=== PATIENT | female | born 1965 | race Caucasian/White ===

== ENCOUNTER 2023-10-06 07:46 | Day surgery (SDC) | payer OTHER, SELFPAY ==
--- NOTE | 2023-10-06 08:01 | FL_ITS ---
The [address] [address] Patient Name: CARLOTA BOWIE MRN: [id number] date: 1965 Sex: F Assigned Patient Location: [place] Current Patient Location: [place] Accession/Order Number: [id number] Exam Date: 10/06/2023 08:30 Report Date: 10/06/2023 10:15 At the request of: CHANTELL BRIDGES Procedure: FL hip inj LT EXAMINATION: FL hip inj LT, FL guided needle placement HISTORY: Left Hip Osteoarthritis COMPARISON: No relevant comparison available. TECHNIQUE: A joint injection was performed in the usual sterile manner after obtaining informed consent. Standard level fluoroscopic mode of operation utilized. FINDINGS: JOINT: Left hip. NEEDLE: 22 gauge, 3.5 spinal needle. MEDICATION: 5cc buffered 1% lidocaine for subcutaneous anesthesia 2cc Omnipaque-300 iodinated contrast to visualize the joint space Mixture of Kenalog 40 mg, 0.5% Bupivacaine 2 mL and Omnipaque 300 10mL was injected into the joint space. TECHNIQUE: Anterior approach with prior localization of the femoral artery. 2 sticks were required to gain access to the joint space CLINICAL: 4 out of 10 pain before the injection. One out of 10 pain following the injection COMPLICATIONS: None. OTHER: Negative. FL/FL hip inj LT IMPRESSION: Technically successful left hip therapeutic arthrogram Electronically authenticated by: CAROLYN HERNANDEZ Date: 10/06/2023 10:15
--- NOTE | 2023-10-06 08:01 | FL_ITS ---
[address] [address] Patient Name: CARLOTA BOWIE MRN: [id number] date: 1965 Sex: F Assigned Patient Location: [place] Current Patient Location: [place] Accession/Order Number: [id number] Exam Date: 10/06/2023 08:30 Report Date: 10/06/2023 10:15 At the request of: CHANTELL BRIDGES Procedure: FL guided needle placement EXAMINATION: FL hip inj LT, FL guided needle placement HISTORY: Left Hip Osteoarthritis COMPARISON: No relevant comparison available. TECHNIQUE: A joint injection was performed in the usual sterile manner after obtaining informed consent. Standard level fluoroscopic mode of operation utilized. FINDINGS: JOINT: Left hip. NEEDLE: 22 gauge, 3.5 spinal needle. MEDICATION: 5cc buffered 1% lidocaine for subcutaneous anesthesia 2cc Omnipaque-300 iodinated contrast to visualize the joint space Mixture of Kenalog 40 mg, 0.5% Bupivacaine 2 mL and Omnipaque 300 10mL was injected into the joint space. TECHNIQUE: Anterior approach with prior localization of the femoral artery. 2 sticks were required to gain access to the joint space CLINICAL: 4 out of 10 pain before the injection. One out of 10 pain following the injection COMPLICATIONS: None. OTHER: Negative. FL/FL guided needle placement IMPRESSION: Technically successful left hip therapeutic arthrogram Electronically authenticated by: CAROLYN HERNANDEZ Date: 10/06/2023 10:15
[2023-10-06] MEDS: TRIAMCINOLONE ACETONIDE 40 MG/ML VIAL INJ (09:10)
[2023-10-06] MEDS: BUPIVACAINE HCL 0.5% PF 50 MG/10 ML VIAL 2 ML INJ (09:10)
[2023-10-06] MEDS: LIDOCAINE HCL 10 ML, SODIUM BICARBONATE 1 MEQ INJ (09:10)
--- NOTE | 2023-10-06 09:37 | SUR.PREOP ---
09/28/23 Pt instructed on procedure, date, time, and prep.
== END 2023-10-06 09:25 | disposition home or self-care (01) ==
LOC: FL 07:47
PROVIDERS: Radiology Diagnostic Radiology; Visit Provider Nurse Practitioner Family
DX: M16.12 Unilateral primary osteoarthritis, left hip (principal); M81.0 Age-related osteoporosis without current pathological fracture; M85.80 Other specified disorders of bone density and structure, unspecified site; Z15.81 Genetic susceptibility to multiple endocrine neoplasia [MEN]
CPT/HCPCS: 20610; 77002; 77080; J0665; J3301; Q9967

== ENCOUNTER 2023-10-06 07:49 | Outpatient (OUT) | payer OTHER, SELFPAY ==
--- NOTE | 2023-10-06 07:58 | XR_ITS ---
[address] [address] Patient Name: CARLOTA BOWIE MRN: [id number] date: 1965 Sex: F Assigned Patient Location: [facility] Current Patient Location: [facility] Accession/Order Number: [id number] Exam Date: 10/06/2023 08:05 Report Date: 10/06/2023 11:05 At the request of: TY NEWSOME Procedure: XR DEXA axial skeleton EXAMINATION: XR DEXA axial skeleton, 10/06/2023 8:05 AM EDT HISTORY: Osteoporosis COMPARISON: None. TECHNIQUE: Dual-energy X-ray absorptiometry (DEXA) bone density study performed for the axial skeleton. HISTORY: Osteoporosis FINDINGS: Bone mineral density AP spine L1-L4 measures 1.309 g/sq cm. T score 1.1. WHO classification: Normal. Lowest bone mineral density is in the left femoral neck measuring 0.874 g/sq cm. T score -1.2. WHO classification: Osteopenia XR/XR DEXA axial skeleton IMPRESSION: Osteopenia. Moderate fracture risk Electronically authenticated by: CAROLYN HERNANDEZ Date: 10/06/2023 11:05
== END 2023-10-06 07:50 | disposition home or self-care (01) ==
PROVIDERS: Visit Provider Internal Medicine Rheumatology
DX: M81.0 Age-related osteoporosis without current pathological fracture (principal); Z51.81 Encounter for therapeutic drug level monitoring; M85.80 Other specified disorders of bone density and structure, unspecified site
CPT/HCPCS: 77080

== ENCOUNTER 2024-04-06 08:44 | Day surgery (SDC) | payer OTHER, SELFPAY ==
--- OUTSIDE RECORDS SUMMARY | 2024-04-06 08:50 | XMS_ITS | CCD ---
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 Refill 07/15/2023 FOR RECORDS PERTAINING TO PATIENTS WHO ARE OR HAVE BEEN ENROLLED IN A CHEMICAL DEPENDENCY/SUBSTANCEABUSE PROGRAM, SOME INFORMATION MAY BE OMITTED. This clinical summary was aggregated from multiple sources. Caution should be exercised in using it in the provision of clinical care. This summary normalizes information from multiple sources, and as a consequence, information in this document may materially change the coding, format and clinical context of patient data. In addition, data may be omitted in some cases. CLINICAL DECISIONS SHOULD BE BASED ON THE PRIMARY CLINICAL RECORDS. [employer] provides no warranty or guarantee of the accuracy or completeness of information in this document.
--- NOTE | 2024-04-06 08:54 | FL_ITS ---
[address] [address] Patient Name: CARLOTA BOWIE MRN: [id number] date: 1965 Sex: F Assigned Patient Location: [place] Current Patient Location: Accession/Order Number: [id number] Exam Date: 04/06/2024 09:00 Report Date: 04/06/2024 10:51 At the request of: CHANTELL BRIDGES Procedure: FL guided needle placement EXAMINATION: FL hip inj LT, FL guided needle placement HISTORY: Primary Osteoarthritis Of Left Hip COMPARISON: No relevant comparison available. FLUORO DOSE: 29.86 and 1.77 mGy TECHNIQUE: A joint injection was performed in the usual sterile manner after obtaining informed consent. Standard level fluoroscopic mode of operation utilized. FINDINGS: JOINT: Left hip. NEEDLE: 22 gauge, 3.5 spinal needle. MEDICATION: 6cc buffered 1% lidocaine for subcutaneous anesthesia 3 mL Omnipaque 240. 40 mg Kenalog. 2 mm 0.5% bupivacaine was injected into the joint space. TECHNIQUE: Anterior approach with prior localization of the femoral artery. A single stick was successful in gaining access to the joint space. CLINICAL: 4 out of 10 pain before the injection. 0 out of 10 pain following the injection COMPLICATIONS: None. OTHER: Negative. FL/FL guided needle placement IMPRESSION: Technically successful left hip therapeutic arthrogram Electronically authenticated by: CAROLYN HERNANDEZ Date: 04/06/2024 10:51
--- NOTE | 2024-04-06 08:54 | FL_ITS ---
[address] [address] Patient Name: CARLOTA BOWIE MRN: [id number] date: 1965 Sex: F Assigned Patient Location: [place] Current Patient Location: Accession/Order Number: [id number] Exam Date: 04/06/2024 09:00 Report Date: 04/06/2024 10:51 At the request of: CHANTELL BRIDGES Procedure: FL hip inj LT EXAMINATION: FL hip inj LT, FL guided needle placement HISTORY: Primary Osteoarthritis Of Left Hip COMPARISON: No relevant comparison available. FLUORO DOSE: 29.86 and 1.77 mGy TECHNIQUE: A joint injection was performed in the usual sterile manner after obtaining informed consent. Standard level fluoroscopic mode of operation utilized. FINDINGS: JOINT: Left hip. NEEDLE: 22 gauge, 3.5 spinal needle. MEDICATION: 6cc buffered 1% lidocaine for subcutaneous anesthesia 3 mL Omnipaque 240. 40 mg Kenalog. 2 mm 0.5% bupivacaine was injected into the joint space. TECHNIQUE: Anterior approach with prior localization of the femoral artery. A single stick was successful in gaining access to the joint space. CLINICAL: 4 out of 10 pain before the injection. 0 out of 10 pain following the injection COMPLICATIONS: None. OTHER: Negative. FL/FL hip inj LT IMPRESSION: Technically successful left hip therapeutic arthrogram Electronically authenticated by: CAROLYN HERNANDEZ Date: 04/06/2024 10:51
[2024-04-06] MEDS: TRIAMCINOLONE ACETONIDE 40 MG/ML VIAL INJ (09:30)
[2024-04-06] MEDS: LIDOCAINE HCL 10 ML, SODIUM BICARBONATE 1 MEQ INJ (09:30)
[2024-04-06] MEDS: BUPIVACAINE HCL 0.5% PF 50 MG/10 ML VIAL 2 ML INJ (09:30)
--- NOTE | 2024-04-06 10:15 | SUR.PREOP ---
04/03/24 Instructed pt on procedure, date, time, and prep.
== END 2024-04-06 09:50 | disposition home or self-care (01) ==
LOC: FL 08:44
PROVIDERS: Radiology Diagnostic Radiology; PCP Family Medicine; Visit Provider Nurse Practitioner Family
DX: M16.12 Unilateral primary osteoarthritis, left hip (principal)
CPT/HCPCS: 20610; 77002; J0665; J3301; Q9966

== ENCOUNTER 2025-01-24 23:00 | Emergency (ER) | payer OTHER, SELFPAY ==
--- OUTSIDE RECORDS SUMMARY | 2025-01-24 23:11 | XMS_ITS | CCD ---
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 [address] Creatinine [Mass/Vol] 0.86 mg/dL Normal 0.40-1.00 [facility] Comment on above: Result Comment: METH OD TRACEABLE TO IDMS STANDARD Performed By: #### Vamshi BARRERA, GRAYSON1C #### [facility] ([id number]) [address] [place] [address] GFR/1.73 sq M.predicted among non-blacks MDRD (S/P/Bld) [Vol rate/Area] 78 mL/min/{1.73_m2} Normal >=60 [facility] Comment on above: Result Comment: eGFR not reported due to non-numeric value for Creatinine. Reported eGFR is based on the CKD-EPI 2020 equation that does not use a race coefficient. Performed By: #### Vamshi BARRERA, LOBO #### [facility] ([id number]) [address], [address] [place] [address] Glucose [Mass/Vol] 93 mg/dL Normal 65-99 [facility] Comment on above: Performed By: #### Vamshi BARRERA, GRAYSON1C #### [facility] ([id number]) [address] [address] [address] [place] [address] Potassium [Moles/Vol] 3.7 mmol/L Normal 3.5-5.0 [facility] Comment on above: Performed By: #### Vamshi BARRERA, HA1C #### [facility] ([id number]) [address] [address] [place] [address] Sodium [Moles/Vol] 136 mmol/L Normal 134-146 [facility] Comment on above: Performed By: #### Vamshi BARRERA, HA1C #### [facility] ([id number]) [address] [address] [place] [address] Urea nitrogen [Mass/Vol] 14 mg/dL Normal 5-23 [facility] Comment on above: Performed By: #### Vamsih BARRERA, HA1C #### [facility] ([id number]) [address] [address] [place] [address] BEDSIDE GLUCOSEon 01-06-2025 Glucose [Mass/Vol] 94 mg/dL Normal 65-99 [facility] Comment on above: Performed By: #### B EDG #### [facility] ([address] [address] VIR CBC WITH AUTO DIFFERENTIALon 01-06-2025 BASOPHILS ABSOLUTE COUNT (10*3/UL) BY AUTOMATED COUNT 0.1 10*3/uL Normal 0.0-0.2 [facility] Comment on above: Performed By: #### C BCA #### [facility] ([address] [address] VIR BASOPHILS RELATIVE PERCENT BY AUTOMATED COUNT 1.1 % Normal [facility] Comment on above: Performed By: #### C BCA #### [facility] ([address] [address] VIR CELLAVISION DIFFERENTIAL TYPE AUTOMATED DIFFERENTIAL Normal [facility] Comment on above: Performed By: #### C BCA #### [facility] ([address] [address] VIR Eosinophils (Bld) [#/Vol] 0.4 10*3/uL Normal 0.0-0.4 [facility] Comment on above: Performed By: #### C BCA #### [facility] ([address] [address] VIR EOSINOPHILS RELATIVE PERCENT BY AUTOMATED COUNT 5.8 % Normal [facility] Comment on above: Performed By: #### C BCA #### [address] [address] VIR Erythrocyte distribution width (RBC) [Ratio] 14.3 % Normal 11.5-15 [facility] Comment on above: Performed By: #### C BCA #### [facility] ([address] [address] VIR Hematocrit (Bld) [Volume fraction] 36.2 % Normal 35-47 [facility] Comment on above: Performed By: #### C BCA #### [facility] ([address] [address] VIR Hemoglobin (Bld) [Mass/Vol] 12.0 g/dL Normal 11.7-15.5 [facility] Comment on above: Performed By: #### C BCA #### [facility] ([address] [address] VIR LYMPHOCYTES ABSOLUTE COUNT (10*3/UL) BY AUTOMATED COUNT 1.7 10*3/uL Normal 1.0-3.5 [facility] Comment on above: Performed By: #### C BCA #### [facility] ([address] [address] VIR LYMPHOCYTES RELATIVE PERCENT BY AUTOMATED COUNT 26.6 % Normal [facility] Comment on above: Performed By: #### C BCA #### [facility] ([address] [address] VIR MCH (RBC) [Entitic mass] 28.8 pg Normal 27-34 [facility] Comment on above: Performed By: #### C BCA #### [facility] ([address] [address] VIR MCHC (RBC) [Mass/Vol] 33.2 g/dL Normal 32-36 [facility] Comment on above: Performed By: #### C BCA #### [facility] ([address] [address] VIR MCV (RBC) [Entitic vol] 87 fL Normal 80-100 [facility] Comment on above: Performed By: #### C BCA #### [facility] ([address] [address] VIR MONOCYTES ABSOLUTE COUNT (10*3/UL) BY AUTOMATED COUNT 0.7 10*3/uL Normal 0.0-0.9 [facility] Comment on above: Performed By: #### C BCA #### [facility] ([address] [place] [address] VIR MONOCYTES RELATIVE PERCENT BY AUTOMATED COUNT 11.0 % Normal [facility] Comment on above: Performed By: #### C BCA #### [facility] ([address] [address] VIR NEUTROPHILS ABSOLUTE COUNT BY AUTOMATED COUNT 3.5 10*3/uL Normal 1.5-6.6 [facility] Comment on above: Performed By: #### C BCA #### [facility] ([address] [address] VIR NEUTROPHILS RELATIVE PERCENT BY AUTOMATED COUNT 55.5 % Normal [facility] Comment on above: Performed By: #### C BCA #### [facility] ([address] [place] [address] VIR Platelet mean volume (Bld) [Entitic vol] 8.5 fL Normal 7-12 [facility] Comment on above: Performed By: #### C BCA #### [facility] ([address] [place] [address] VIR Platelets (Bld) [#/Vol] 206 10*3/uL Normal 150-450 [facility] Comment on above: Performed By: #### C BCA #### [facility] ([address] [address] VIR RBC COUNT 4.18 X10E12/L Normal 3.8-5.2 [facility] Comment on above: Performed By: #### C BCA #### [facility] ([address] [place] [address] VIR WBC (Bld) [#/Vol] 6.3 10*3/uL Normal 4-11 [facility] Comment on above: Performed By: #### C BCA #### [facility] ([facility]) [address] [place] [address] BRAIN WO CONT STROKE ALER Ton 01-06-2025 CT BRAIN WO CONT STROKE ALERT CT BRAIN WO CONT STROKE ALERT CLINICAL INFORMATION: Stroke, follow up; assessment of stroke/hemorrhage: TECHNIQUE: CT BRAIN WO CONT STROKE ALERT CT images of the brain were obtained and compared to prior exam of 10/15/2021. Nix-white differentiation appears intact without cortical infarct. No cisternal effacement. No acute intracranial hemorrhage identified. Sinuses are clear. No obvious calvarial abnormality. IMPRESSION: No acute findings. All CT scans at this facility use dose modulation, iterative reconstruction, and/or weight based dosing when appropriate to reduce radiation dose to as low as reasonably achievable. Finalized by Vazquez Mendes MD on 01/06/2025 3:04 AM Normal [facility] CT CTA CAROTIDon 01-06-[address] CTA CAROTID Examination: CTA carotids Clinical History: TIA. Procedure: Multidetector CT angiogram performed through the cervical portion of the carotid arteries after intravenous injection of contrast material without complication, including source images and maximum intensity projection 3-D images displayed and reviewed on a PACS workstation by the radiologist. Automatic exposure control (AEC) was utilized. All CT scans at this facility use dose modulation, iterative reconstruction, and/or weight based dosing when appropriate to reduce radiation dose to as low as reasonably achievable. Comparison: None Findings: Right carotid system: The left common carotid artery is patent. Carotid bifurcation is patent. There is 0% right internal carotid artery stenosis by NASCET criteria. The right external carotid artery is patent. Left carotid system: Left common carotid artery is patent. Left carotid bifurcation is patent. There is 0% left internal carotid artery stenosis by NASCET criteria. Left external carotid artery is patent. Bilaterally the vertebral arteries appear patent to the skull base. 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 Lung apices appear unremarkable. IMPRESSION: 1. Patent cervical carotid arteries. Finalized by Payam Crouch MD on 01/06/2025 3:45 AM Normal [facility] CT CTA HEADon 01-06-[address] CTA HEAD CT CTA HEAD 01/06/2025 3:32 AM INDICATION: Difficulty walking, unsteadiness, changes in vision, weakness in legs COMPARISON: None TECHNIQUE: CT images of the head were obtained following the administration intravenous contrast. 3-D images were also post processed at a separate workstation to further define anatomy and potential pathology. All CT scans at this facility use dose modulation, iterative reconstruction, and/or weight based dosing when appropriate to reduce radiation dose to as low as reasonably achievable. FINDINGS: ARTERIAL VASCULATURE: Vertebrobasilar: The distal vertebral and basilar arteries are patent. Posterior Cerebral: Patent without significant stenosis. Internal Carotids: The distal internal carotid arteries are unremarkable. Anterior Cerebral: Patent without significant stenosis. Middle Cerebral: Patent without significant stenosis. Other: No aneurysm or malformation. VENOUS VASCULATURE: Visualized major dural venous sinuses are patent. BRAIN: No mass effect or midline shift. No hydrocephalus. IMPRESSION: * Unremarkable CTA of the head. Approved by Resident Anmol Sosa MD on 01/06/2025 3:42 AM IPayam MD have personally reviewed the image(s) and agree with and/or edited the report Finalized by Payam Crouch MD on 01/06/2025 3:50 AM Normal [facility] PROTIME AND INRon 01-06-2025 INR 0.9 Normal 0.9-1.2 [facility] Comment on above: Performed By: #### P INR #### [facility] ([address] [place] [address] VIR PT Coag (PPP) [Time] 10.3 s Normal 9.8-13.2 [facility] Comment on above: Performed By: #### P INR #### [facility] ([address] [address] VIR TROP I, HIGH SENSITIVITY 1 H OURon 01-06-2025 TROPONIN I, HIGH SENSITIVITY 2 ng/L Normal <16 [facility] Comment on above: Performed By: #### C BC, HA1C #### [facility] ([id number]) [address] [place] [address] TROPONIN I, HIGH SENSITIVITY 0 HOURon 01-06-2025 TROPONIN I, HIGH SENSITIVITY <^2 Normal <16 [facility] Comment on above: Performed By: #### C BC, HA1C #### [facility] ([id number]) [address] [place] [address] Urine Cultureon 12-22-2024 Bacteria identified Cx Nom (U) ORGANISM: Escherichia coli (O:ESCCOL) [place] Count 25,000 Aerobic JANENE Charge (NMIC56) ----- SUSCEPTIBILITY ---- ORGANISM: O:ESCCOL ANTIBIOTIC INTERPRETATION JANENE Amikacin S <16 Amoxacillin/K Clavulanate S <8 Ampicillin S <8 Ampicillin/Sulbactam S <4 Aztreonam S <4 Cefazolin S <2 Cefepime S <2 Ceftazidime S <1 Ceftazidime/Avibacta m S <4 Ceftolozane/Tazobact am S <2 Ceftriaxone S <1 Cefuroxime S <4 Ciprofloxacin S <0.25 Ertapenem S <0.5 Gentamicin S <2 Levofloxacin S <0.5 Meropenem S <1 Meropenem/Vaborbacta m S <2 Nitrofurantoin S <32 Piperacillin/Tazobac webster S <8 Tetracycline S <4 Tigecycline S <2 Tobramycin S <2 Trimethoprim/Sulfame thoxazole S <0.5 S = SUSCEPTIBLE I = INTERMEDIATE R [...] RESISTANT TO ALL B-LACTAM DRUGS. PERFORMED BY: [address] [address] PATHOLOGIST DANDY OPERATOR JESSY MORE M.D. Normal [facility] Comment on above: Performed By: #### C UU #### [facility] [address] [id number] [facility] XR HIP LT 2-3 VIEWS W OR WO PELVISon 11-10-2024 XR HIP LT 2-3 VIEWS W OR WO PELVIS XR HIP LT 2-3 VIEWS W OR WO PELVIS HISTORY: A 59-year-old female with a history of the total left hip replacement one week ago. Postsurgical examination. TECHNIQUE: AP view of pelvis with left hip: 3 views COMPARISON: No relevant prior studies are available for comparison. FINDINGS: There is a total left hip replacement. Metallic prosthesis is in satisfactory position. No hardware complications are seen. Right hip joint is intact. Both sacroiliac joints are intact. Both is a pubic rami are intact. IMPRESSION: * Total left hip replacement with postsurgical change. No hardware complications are seen. Finalized by Alex Rawls MD on 11/10/2024 5:38 PM Normal [facility] CBC WITH AUTO DIFFERENTIALon 10-30-2024 BASOPHILS ABSOLUTE COUNT (10*3/UL) BY AUTOMATED COUNT 0.0 10*3/uL Normal 0.0-0.2 [facility] Comment on above: Performed By: #### C BCA #### [facility] ([facility]) [address] [place] [address] VIR BASOPHILS RELATIVE PERCENT BY AUTOMATED COUNT 0.5 % Normal [facility] Comment on above: Performed By: #### C BCA #### [facility] ([facility]) [address] [place] [address] VIR CELLAVISION DIFFERENTIAL TYPE AUTOMATED DIFFERENTIAL Normal [facility] Comment on above: Performed By: #### C BCA #### [facility] ([facility]) [address] [place] [address] VIR Eosinophils (Bld) [#/Vol] 0.3 10*3/uL Normal 0.0-0.4 [facility] Comment on above: Performed By: #### C BCA #### [facility] ([facility]) [address] [place] [address] VIR EOSINOPHILS RELATIVE PERCENT BY AUTOMATED COUNT 5.1 % Normal [facility] Comment on above: Performed By: #### C BCA #### [facility] ([facility]) [address] [place] [address] VIR Erythrocyte distribution width (RBC) [Ratio] 14.6 % Normal 11.5-15 [facility] Comment on above: Performed By: #### C BCA #### [facility] ([facility]) [address] [place] [address] VIR Hematocrit (Bld) [Volume fraction] 38.0 % Normal 35-47 [facility] Comment on above: Performed By: #### C BCA #### [facility] ([facility]) [address] [place] [address] VIR Hemoglobin (Bld) [Mass/Vol] 12.7 g/dL Normal 11.7-15.5 [facility] Comment on above: Performed By: #### C BCA #### [facility] ([facility]) [address] [place] [address] VIR LYMPHOCYTES ABSOLUTE COUNT (10*3/UL) BY AUTOMATED COUNT 1.7 10*3/uL Normal 1.0-3.5 [facility] Comment on above: Performed By: #### C BCA #### [facility] ([facility]) [address] [place] [address] VIR LYMPHOCYTES RELATIVE PERCENT BY AUTOMATED COUNT 26.5 % Normal [facility] Comment on above: Performed By: #### C BCA #### [facility] ([facility]) [address] [place] [address] VIR MCH (RBC) [Entitic mass] 29.6 pg Normal 27-34 [facility] Comment on above: Performed By: #### C BCA #### [facility] ([facility]) [address] [place] [address] VIR MCHC (RBC) [Mass/Vol] 33.3 g/dL Normal 32-36 [facility] Comment on above: Performed By: #### C BCA #### [facility] ([facility]) [address] [place] [address] VIR MCV (RBC) [Entitic vol] 89 fL Normal 80-100 [facility] Comment on above: Performed By: #### C BCA #### [facility] ([facility]) [address] [place] [address] VIR MONOCYTES ABSOLUTE COUNT (10*3/UL) BY AUTOMATED COUNT 0.8 10*3/uL Normal 0.0-0.9 [facility] Comment on above: Performed By: #### C BCA #### [facility] ([facility]) [address] [place] [address] VIR MONOCYTES RELATIVE PERCENT BY AUTOMATED COUNT 12.3 % Normal [facility] Comment on above: Performed By: #### C BCA #### [facility] ([facility]) [address] [place] [address] VIR NEUTROPHILS ABSOLUTE COUNT BY AUTOMATED COUNT 3.5 10*3/uL Normal 1.5-6.6 [facility] Comment on above: Performed By: #### C BCA #### [facility] ([facility]) [address] [place] [address] VIR NEUTROPHILS RELATIVE PERCENT BY AUTOMATED COUNT 55.6 % Normal [facility] Comment on above: Performed By: #### C BCA #### [facility] ([facility]) [address] [place] [address] VIR Platelet mean volume (Bld) [Entitic vol] 8.7 fL Normal 7-12 [facility] Comment on above: Performed By: #### C BCA #### [facility] ([facility]) [address] [place] [address] VIR Platelets (Bld) [#/Vol] 217 10*3/uL Normal 150-450 [facility] Comment on above: Performed By: #### C BCA #### [facility] ([facility]) [address] [place] [address] VIR RBC COUNT 4.28 X10E12/L Normal 3.8-5.2 [facility] Comment on above: Performed By: #### C BCA #### [facility] ([facility]) [address] [place] [address] VIR WBC (Bld) [#/Vol] 6.3 10*3/uL Normal 4-11 [facility] Comment on above: Performed By: #### C BCA #### [facility] ([facility]) [address] [place] [address] VIR COMPREHENSIVE METABOLIC PANE Elliott 10-30-2024 Albumin [Mass/Vol] 4.1 g/dL Normal 3.2-5.3 [facility] Comment on above: Performed By: #### C MP #### [facility] ([facility]) [address] [place] [address] VIR ALP [Catalytic activity/Vol] 63 U/L Normal 39-130 [facility] Comment on above: Performed By: #### C MP #### [facility] ([facility]) [address] [place] [address] VIR ALT [Catalytic activity/Vol] 12 U/L Normal <=31 [facility] Comment on above: Performed By: #### C MP #### [facility] ([facility]) [address] [place] [address] VIR Anion gap [Moles/Vol] 10 mmol/L Normal 5-15 [facility] Comment on above: Performed By: #### C MP #### [facility] ([facility]) [address] [place] [address] VIR AST [Catalytic activity/Vol] 18 U/L Normal <=41 [facility] Comment on above: Performed By: #### C MP #### [facility] ([facility]) [address] [place] [address] VIR Bilirubin [Mass/Vol] 0.4 mg/dL Normal 0.3-1.2 [facility] Comment on above: Performed By: #### C MP #### [facility] ([facility]) [address] [place] [address] VIR Calcium [Mass/Vol] 9.1 mg/dL Normal 8.5-10.5 [facility] Comment on above: Performed By: #### C MP #### [facility] ([facility]) [address] [facility] [address] [place] [address] VIR Chloride [Moles/Vol] 107 mmol/L Normal 98-109 [facility] Comment on above: Performed By: #### C MP #### [facility] ([facility]) [address] [place] [address] VIR CO2 [Moles/Vol] 24 mmol/L Normal 22-[address] [facility] Comment on above: Performed By: #### C MP #### [facility] ([facility]) [address] [place] [address] VIR Creatinine [Mass/Vol] 0.89 mg/dL Normal 0.40-1.00 [facility] Comment on above: Result Comment: METH OD TRACEABLE TO IDMS STANDARD Performed By: #### C MP #### [facility] ([facility]) [address] [place] [address] VIR GFR/1.73 sq M.predicted among non-blacks MDRD (S/P/Bld) [Vol rate/Area] 75 mL/min/{1.73_m2} Normal >=60 [facility] Comment on above: Result Comment: Repo rted eGFR is based on the CKD-EPI 2020 equation that does not use a race coefficient. Performed By: #### C MP #### [facility] ([facility]) [address] [place] [address] VIR Glucose [Mass/Vol] 83 mg/dL Normal 65-99 [facility] Comment on above: Performed By: #### C MP #### [facility] ([facility]) [address] [place] [address] VIR Potassium [Moles/Vol] 3.8 mmol/L Normal 3.5-5.0 [facility] Comment on above: Performed By: #### C MP #### [facility] ([facility]) [address] [place] [address] VIR Protein [Mass/Vol] 6.7 g/dL Normal 6.0-8.0 [facility] Comment on above: Performed By: #### C MP #### [facility] ([facility]) [address] [place] [address] VIR Sodium [Moles/Vol] 141 mmol/L Normal 134-146 [facility] Comment on above: Performed By: #### C MP #### [facility] ([facility]) [address] [place] [address] VIR Urea nitrogen [Mass/Vol] 13 mg/dL Normal 5-23 [facility] Comment on above: Performed By: #### C MP #### [facility] ([facility]) [address] [place] [address] VIR LIPID PROFILEon 10-30-2024 Cholesterol [Mass/Vol] 232 mg/dL High 150-200 [facility] Comment on above: Performed By: #### L IPR #### [facility] ([facility]) [address] [place] [address] VIR Cholesterol in HDL [Mass/Vol] 68 mg/dL Normal >39 [facility] Comment on above: Result Comment: HDL <40 mg/dL - High Risk HDL > or = 40mg/dL- Desirable HDL >60 mg/dL - Negative Risk Performed By: #### L IPR #### [facility] ([facility]) [address] [place] [address] VIR Cholesterol in LDL [Mass/Vol] 145 mg/dL High <130 [facility] Comment on above: Result Comment: LDL <100 mg/dL - Desirable LDL >160 mg/dL - High Risk Performed By: #### L IPR #### [facility] ([facility]) [address] [place] [address] VIR CHOLESTEROL:HDL 3.4 Normal 1.0-5.[address] [facility] Comment on above: Performed By: #### L IPR #### [facility] ([facility]) [address] [place] [address] VIR Triglyceride [Mass/Vol] 93 mg/dL Normal 27-150 [facility] Comment on above: Performed By: #### L IPR #### [facility] ([facility]) [address] [place] [address] VIR VERY LOW LIPOPROTEIN 19 mg/dL Normal 0-30 [facility] Comment on above: Performed By: #### L IPR #### [facility] ([facility]) [address] [place] [address] VIR THYROID PROFILE INCLUDES TSH FT4on 10-30-2024 Free T4 [Mass/Vol] 0.84 ng/dL Normal 0.61-1.60 [facility] Comment on above: Performed By: #### T HYR #### [facility] ([facility]) [address] [place] [address] VIR TSH 4.46 uIU/mL Normal 0.49-4.67 [facility] Comment on above: Performed By: #### T HYR #### [facility] ([facility]) [address] [place] [address] VIR VITAMIN D 25 HYDROXYon 10-30 VITAMIN D 25 HYD TOT 27.3 ng/mL Low 30.0-100.0 [facility] Comment on above: Order Comment: Vitam in D status 25 [place] Vitamin D Deficiency <20 ng/mL Insufficiency 20-29 ng/mL Sufficiency 30-100 ng/mL Toxicity >100 ng/mL NOTE: A pediatric reference range has not been established by the regional sales executive of this kit. The [place] [employer] recommends a Vitamin D level of = or >20ng/mL in infants and children. Performed By: #### V ITD #### [facility] (TT) [address] [place] [address] VIR POCT urinalysis dipstick onl yon 10-19-2024 External Poct Urine Bilirubin Negative [facility] External Poct Urine Blood Negative [facility] External Poct Urine Glucose Negative [facility] External Poct Urine Ketones Negative [facility] External Poct Urine Leukocyte Esterase Negative [facility] External Poct Urine Nitrite Negative [facility] External Poct Urine Ph 5 [facility] External Poct Urine Protein Negative [facility] External Poct Urine Specific Niotaze 1.015 [facility] External Poct Urine Urobilinogen 0.2 [facility] Interpretation and review of laboratory results Normal [facility] COMPLETE BLOOD COUNTon 08-29 Erythrocyte distribution width (RBC) [Ratio] 14.1 % Normal 11.5-15.0 [facility] Comment on above: Performed By: #### C GRAYSON BARRERA1C #### [facility] ([id number]) [address] [place] [address] Hematocrit (Bld) [Volume fraction] 35.4 % Normal 35-47 [facility] Comment on above: Performed By: #### Vamshi BARRERA, GRAYSON1C #### [facility] ([id number]) [address] [place] [address] Hemoglobin (Bld) [Mass/Vol] 12.1 g/dL Normal 11.7-15.5 [facility] Comment on above: Performed By: #### Vamshi BARRERA, HA1C #### [facility] ([id number]) [address] [place] [address] MCH (RBC) [Entitic mass] 30.5 pg Normal 27-34 [facility] Comment on above: Performed By: #### Vamshi BARRERA, HA1C #### [facility] ([id number]) [address] [place] [address] MCHC (RBC) [Mass/Vol] 34.1 g/dL Normal 32-36 [facility] Comment on above: Performed By: #### Vamshi BARRERA, HA1C #### [facility] ([id number]) [address] [place] [address] MCV (RBC) [Entitic vol] 89 fL Normal 80-100 [facility] Comment on above: Performed By: #### Vamshi BARRERA, HA1C #### [facility] ([id number]) [address] [place] [address] Platelet mean volume (Bld) [Entitic vol] 8.6 fL Normal 7-12 [facility] Comment on above: Performed By: #### Vamshi BARRERA, HA1C #### [facility] ([id number]) [address] [place] [address] Platelets (Bld) [#/Vol] 212 10*3/uL Normal 150-450 [facility] Comment on above: Performed By: #### Vamshi BARRERA, HA1C #### [facility] ([id number]) [address] [place] [address] RBC COUNT 3.97 X10E12/L Normal 3.80-5.20 [facility] Comment on above: Performed By: #### Vamshi BARRERA, HA1C #### [facility] ([id number]) [address] [place] [address] WBC (Bld) [#/Vol] 5.3 10*3/uL Normal 4.0-11.0 [facility] Comment on above: Performed By: #### C BRUCE, GRAYSON1C #### [facility] ([id number]) [address] [place] [address] HGB A1C (GLYCO-HGB)on 2024 Glucose [Mass/Vol] 108 mg/dL Normal [facility] Comment on above: Performed By: #### C BRUCE, LOBO #### [facility] ([id number]) [address] [place] [address] HbA1c (Bld) [Mass fraction] 5.4 % Normal 4.4-5.6 [facility] Comment on above: Result Comment: NOTE ADA Guidelines Result HgbA1c Normal : less than 5.7 % Prediabetes : 5.7 % to 6.4 % Diabetes : > 6.4 % Use with caution in patients with abnormal hemoglobin variants as the half-life of red blood cells and in vivo glycation rates are affected. Performed By: #### Vmashi BARRERA, LOBO #### [facility] ([id number]) [address] [address] XR HIP LT 2-3 VIEWS W OR WO PELVISon 07-05-2024 XR HIP LT 2-3 VIEWS W OR WO PELVIS XR HIP LT 2-3 VIEWS W OR WO PELVIS CLINICAL INFORMATION: Pain of left hip TECHNIQUE: XR HIP LT 2-3 VIEWS W OR WO PELVIS 3 views left hip were obtained. Moderate to severe left hip osteoarthritic changes noted with superior joint space loss and near [id number] appearance. Femoral neck appears intact. No acute fracture. Small osteophytes. IMPRESSION: Moderate to severe left hip osteoarthritis. Finalized by Vazquez Mendes MD on 07/05/2024 1:05 PM Normal [facility] Urinalysis - AUTOMATEDon Appearance (U) yellow/cloudy [employer] Other Bilirubin Ql (U) Negative [employer] Other Color (U) [employer] Other Glucose Ql (U) Negative [employer] Other Hemoglobin Ql (U) Positive [employer] Other Ketones Ql (U) Negative [employer] Other Leukocyte esterase Test strip Ql (U) mod [employer] Other Nitrite Ql (U) Negative [employer] Other pH (U) Negative [employer] Other Protein Ql (U) Negative [employer] Other Specific gravity (U) [Rel density] 1.025 [employer] Other Urobilinogen (U) [Mass/Vol] 0.2 mg/dL [employer] Other Urinalysis - AUTOMATED [employer] Other MRI HIP LT WO W CONon 2020 [...] NASREEN BELLE Date: 2021-03-10 13:40 Normal [facility] COVID-19 PCRon 04-25-2020 SARS-CoV-2 (COVID-19) RNA MONTEZ+probe Ql (Unsp spec) Not detected Normal Not Detected [facility] Comment on above: Result Comment: This nucleic acid amplification test was developed and its performance characteristics determined by [employer]. Nucleic acid amplification tests include PCR and [...] assay. Performed By: #### C VDPCR #### [facility] [address] [place] [address] Michael Andres Vital Signs Date Time Vital Sign Value Performing Clinician Facility 01-24-2025 10:24-040 Body mass index (BMI) [Ratio] 21.43 kg/m2 South Avila MD Work Phone: [facility] 01-24-2025 10:24-040 Body weight 54.88 kg South Avila MD Work Phone: [facility] 01-24-2025 10:24-0400 Diastolic blood pressure 80 mm[Hg] South Avila MD Work Phone: [facility] 01-24-2025 10:24-0400 Heart rate 87 /min South Avila MD Work Phone: [facility] 01-24-2025 10:24-0400 Respiratory rate 18 /min South Avila MD Work Phone: [facility] 01-24-2025 10:24-0400 SaO2% (BldA) [Mass fraction] 97 % South Avila MD Work Phone: [facility] 01-24-2025 10:24-0400 Systolic blood pressure 120 mm[Hg] South Avila MD Work Phone: [facility] 12-31-2024 15:02-0400 Body mass index (BMI) [Ratio] 21.26 kg/m2 Kimberly Song [facility] Work Phone: [facility] 12-31-2024 15:02-0400 Body weight 54.43 kg Kimberly Floro [facility] Work Phone: [facility] 12-24-2024 10:15-0400 Body height 160 cm Augie Schultz APRN-ROUGHER OPERATOR Work Phone: [facility] 12-24-2024 10:15-0400 Body mass index (BMI) [Ratio] 22.14 kg/m2 Augie Schultz COMBUSTION ANALYST-ROUGHER OPERATOR Work Phone: [facility] 12-24-2024 10:15-0400 Body weight 56.7 kg Augie Schultz APRN-ROUGHER OPERATOR Work Phone: [facility] 12-22-2024 14:20-0400 Body height 160.02 cm [facility] 12-22-2024 14:20-0400 Body mass index (BMI) [Ratio] 21.4 kg/m2 [facility] 12-22-2024 14:20-0400 Body temperature 98.3 [degF] [facility] 12-22-2024 14:20-0400 Body weight 54.99 kg [facility] 12-22-2024 14:20-0400 Diastolic blood pressure 85 mm[Hg] [facility] 12-22-2024 14:20-0400 Heart rate 61 /min [facility] 12-22-2024 14:20-0400 Respiratory rate 18 /min [facility] 12-22-2024 14:20-0400 SaO2% (BldA) [Mass fraction] 99 % [facility] 12-22-2024 14:20-0400 Systolic blood pressure 146 mm[Hg] [facility] 11-14-2024 08:17-0400 Body height 160 cm Augie Schultz COMBUSTION ANALYST-ROUGHER OPERATOR Work Phone: [facility] 11-14-2024 08:17-0400 Body mass index (BMI) [Ratio] 22.14 kg/m2 Augie Schultz COMBUSTION ANALYST-ROUGHER OPERATOR Work Phone: [facility] 11-14-2024 08:17-0400 Body weight 56.7 kg Augie Schultz COMBUSTION ANALYST-ROUGHER OPERATOR Work Phone: [facility] 11-07-2024 12:53-0400 Body height 160 cm Augie Schultz COMBUSTION ANALYST-ROUGHER OPERATOR Work Phone: [facility] 11-07-2024 12:53-0400 Body mass index (BMI) [Ratio] 21.43 kg/m2 Augie Schultz COMBUSTION ANALYST-ROUGHER OPERATOR Work Phone: [facility] 11-07-2024 12:53-0400 Body weight 54.88 kg Augie Schultz COMBUSTION ANALYST-ROUGHER OPERATOR Work Phone: [facility] 10-19-2024 08:02-0400 Body mass index (BMI) [Ratio] 21.26 kg/m2 Faustino Amin COMBUSTION ANALYST-ROUGHER OPERATOR Work Phone: [facility] 10-19-2024 08:02-0400 Body weight 54.43 kg Faustino Amin APRN-LEON Work Phone: [facility] 10-19-2024 08:02-0400 Diastolic blood pressure 70 mm[Hg] Faustino Amin COMBUSTION ANALYST-ROUGHER OPERATOR Work Phone: [facility] 10-19-2024 08:02-0400 Heart rate 88 /min Faustino Amin COMBUSTION ANALYST-ROUGHER OPERATOR Work Phone: [facility] 10-19-2024 08:02-0400 Respiratory rate 16 /min Faustino Amin COMBUSTION ANALYST-ROUGHER OPERATOR Work Phone: [facility] 10-19-2024 08:02-0400 SaO2% (BldA) [Mass fraction] 97 % Faustino Amin APRN-ROUGHER OPERATOR Work Phone: [facility] 10-19-2024 08:02-0400 Systolic blood pressure 120 mm[Hg] Faustino Amin APRN-ROUGHER OPERATOR Work Phone: [facility] 10-17-2024 12:52-0400 Body height 160 cm [facility] [address] [place] [address] 10-17-2024 12:52-0400 Body mass index (BMI) [Ratio] 21.36 kg/m2 [facility] [address] [place] [address] 10-17-2024 12:52-0400 Body temperature 98.01 [degF] [facility] [address] [place] [address] 10-17-2024 12:52-0400 Body weight 54.[address] [facility] [address] [place] [address] 10-17-2024 12:52-0400 Diastolic blood pressure 82 mm[Hg] [facility] [address] [place] [address] 10-17-2024 12:52-0400 Heart rate 77 /min [facility] [address] [place] [address] 10-17-2024 12:52-0400 Respiratory rate 16 /min [facility] [address] [place] [address] 10-17-2024 12:52-0400 SaO2% (BldA) [Mass fraction] 99 % [facility] [address] [place] [address] 10-17-2024 12:52-0400 Systolic blood pressure 133 mm[Hg] [facility] 10-01-2024 14:56-0400 Body mass index (BMI) [Ratio] 22.13 kg/m2 South Avila MD Work Phone: [facility] 10-01-2024 14:56-0400 Body temperature 98.6 [degF] South Avila MD Work Phone: [facility] 10-01-2024 14:56-0400 Body weight 54.88 kg South Avila MD Work Phone: [facility] 10-01-2024 14:56-0400 Diastolic blood pressure 82 mm[Hg] South Avila MD Work Phone: [facility] 10-01-2024 14:56-0400 Heart rate 79 /min South Avila MD Work Phone: [facility] 10-01-2024 14:56-0400 Respiratory rate 18 /min South Avila MD Work Phone: [facility] 10-01-2024 14:56-0400 SaO2% (BldA) [Mass fraction] 98 % South Avila MD Work Phone: [facility] 10-01-2024 14:56-0400 Systolic blood pressure 130 mm[Hg] South Avila MD Work Phone: [facility] 07-17-2024 08:11-0500 Body mass index (BMI) [Ratio] 19.75 kg/m2 Faustino Amin APRN-ROUGHER OPERATOR Work Phone: [facility] 07-17-2024 08:11-0500 Body weight 48.99 kg Faustino Amin APRN-ROUGHER OPERATOR Work Phone: [facility] 07-17-2024 08:11-0500 Diastolic blood pressure 72 mm[Hg] Faustino Schlachter COMBUSTION ANALYST-ROUGHER OPERATOR Work Phone: [facility] 07-17-2024 08:11-0500 Heart rate 86 /min Faustino Amin APRN-ROUGHER OPERATOR Work Phone: [facility] 07-17-2024 08:11-0500 Respiratory rate 16 /min Faustino Amin COMBUSTION ANALYST-ROUGHER OPERATOR Work Phone: [facility] 07-17-2024 08:11-0500 SaO2% (BldA) [Mass fraction] 97 % Faustino Amin APRN-ROUGHER OPERATOR Work Phone: [facility] 07-17-2024 08:11-0500 Systolic blood pressure 118 mm[Hg] Faustino Amin APRN-ROUGHER OPERATOR Work Phone: [facility] 07-05-2024 08:49-0500 Body height 157.5 cm Shahram Rivas MD Work Phone: [facility] 07-05-2024 08:49-0500 Body mass index (BMI) [Ratio] 20.49 kg/m2 Shahram Rivas MD Work Phone: [facility] 07-05-2024 08:49-0500 Body weight 50.8 kg Shahram Rivas MD Work Phone: [facility] 01-24-2024 08:05-0400 Body height 160 cm Carolyn Jackson MD Work Phone: [facility] 01-24-2024 08:05-0400 Body mass index (BMI) [Ratio] 20.02 kg/m2 Carolyn Jackson MD Work Phone: [facility] 01-24-2024 08:05-0400 Body weight 51.26 kg Carolyn Jackson MD Work Phone: [facility] 01-24-2024 08:05-0400 Diastolic blood pressure 86 mm[Hg] Carolyn Jackson MD Work Phone: [facility] 01-24-2024 08:05-0400 Heart rate 74 /min Carolyn Jackson MD Work Phone: [facility] 01-24-2024 08:05-0400 SaO2% (BldA) [Mass fraction] 98 % Carolyn Jackson MD Work Phone: [facility] 01-24-2024 08:05-0400 Systolic blood pressure 124 mm[Hg] Carolyn Jackson MD [facility] 11-07-2021 13:30-0400 Body height 158.75 cm Deja Reedault Other [employer] Other 11-07-2021 13:30-0400 Body mass index (BMI) [Ratio] 20.34 kg/m2 Deja Reedault Other [employer] Other 11-07-2021 13:30-0400 Body weight 51.26 kg Deja Reedault Other [employer] Other 11-07-2021 13:30-0400 Diastolic blood pressure 78 mm[Hg] Deja Reedault Other [employer] Other 11-07-2021 13:30-0400 SaO2% (BldA) [Mass fraction] 100 % Deja Reedault Other [employer] Other 11-07-2021 13:30-0400 Systolic blood pressure 120 mm[Hg] Deja Reedault Other [employer] Other Encounters Encounter Date Encounter Type Care Provider Facility Start: 01-24-2025 End: 01-24-2025 Office outpatient visit 25 minutes South Avila MD Work Phone: [facility] Comment on above: Cystitis (Primary Dx ); Rosacea Start: 01-21-2025 End: 01-21-2025 [facility] Start: 01-21-2025 End: 01-21-2025 Postop follow up visit related to original px [facility] COMBUSTION ANALYST-ROUGHER OPERATOR Work Phone: [facility] Comment on above: Aftercare following left hip joint replacement surgery (Primary Dx) Start: 01-11-2025 End: 01-11-2025 ambulatory [facility] Start: 01-07-2025 End: 01-09-2025 Telephone encounter Do Douglass [facility] Neurology, A Department of [facility] Start: 01-07-2025 [facility] Start: 01-06-2025 End: 01-06-2025 Emergency department patient visit [facility] Start: 01-01-2025 End: 01-01-2025 Verito Jackson MD Work Phone: [facility] Start: 12-31-2024 End: 12-31-2024 Periodic preventive med est patient 40-64yrs Kimberly Amadoro CNM Work Phone: [facility] Comment on above: Asymptomatic [place] (Primary Dx); IUD check up; Breast cancer screening by mammogram; Unprotected sexual intercourse Start: 12-31-2024 End: 12-31-2024 ambulatory KIMBERLY L FLORO Not Available Start: 12-31-2024 End: 12-31-2024 Bamboo flowsheet Kimberly L Floro CNM Work Phone: [facility] Start: 12-31-2024 End: 12-31-2024 Bamboo flowsheet Kimberly L Floro CNM Work Phone: [facility] OB[facility] Start: 12-27-2024 [facility] Start: 12-24-2024 End: 12-24-2024 Postop follow up visit related to original px Augie Schultz COMBUSTION ANALYST-ROUGHER OPERATOR [facility] Comment on above: Aftercare following left hip joint replacement surgery (Primary Dx) Start: 12-24-2024 End: 12-24-2024 ambulatory [facility] JOSEArturo [facility] Start: 12-22-2024 End: 12-22-2024 Departed Referred Nika Gilbert COMBUSTION ANALYST -[facility] Work Phone: Start: 12-22-2024 End: 12-22-2024 ambulatory NON STAFF [facility] Work Phone: Start: 12-22-2024 End: 12-22-2024 Patient encounter procedure Nika Gilbert COMBUSTION ANALYST -[facility] Work Phone: Start: 11-28-2024 End: 11-28-2024 Postop follow up visit related to original px Augie Schultz COMBUSTION ANALYST-ROUGHER OPERATOR Work Phone: [facility] Comment on above: Aftercare following left hip joint replacement surgery (Primary Dx) Start: 11-28-2024 End: 11-28-2024 Orders Only Faustino Amin COMBUSTION ANALYST-ROUGHER OPERATOR Work Phone: [facility] Start: 11-27-2024 End: 11-27-2024 Verito Rivas MD Work Phone: [facility] Start: 11-14-2024 End: 11-14-2024 Postop follow up visit related to original px Augie Schultz COMBUSTION ANALYST-ROUGHER OPERATOR [facility] Phone: [facility] Comment on above: Aftercare following left hip joint replacement surgery (Primary Dx) Start: 11-14-2024 End: 11-14-2024 ambulatory [facility] Start: 11-07-2024 End: 11-07-2024 Telephone encounter Loida Marks [facility] Start: 11-07-2024 End: 11-07-2024 Postop follow up visit related to original px Augie Qureshiarturo COMBUSTION ANALYST-ROUGHER OPERATOR Work Phone: [facility] Comment on above: Aftercare following left hip joint replacement surgery (Primary Dx) Start: 11-07-2024 End: 11-11-2024 [facility] Start: 10-31-2024 End: 10-31-2024 Refill Shahram Rivas MD Work Phone: [facility] Comment on above: Vitamin D deficiency (Primary Dx) Start: 10-31-2024 End: 10-31-2024 Evaluation and management of inpatient [facility] Start: 10-30-2024 ambulatory CAROLYN Jackson [facility] Start: 10-30-2024 Encounter for genera l adult medical examination without abnormal findings [facility] Start: 10-24-2024 End: 10-24-2024 Telephone encounter Landy Orosco CMA [facility] Start: 10-19-2024 End: 10-19-2024 Office outpatient visit 25 minutes [facility] COMBUSTION ANALYST-ROUGHER OPERATOR Work Phone: [facility] Comment on above: Pre-operative cleara nce (Primary Dx); Acquired hypothyroidism; Fibromyalgia; Primary osteoarthritis of left hip; Tension headache; Gastroesophageal reflux disease without esophagitis; Hypothyroidism, unspecified type Start: 10-19-2024 End: 10-19-2024 Preoperative state [facility] COMBUSTION ANALYST-ROUGHER OPERATOR Work Phone: [facility] Start: 10-19-2024 End: 10-19-2024 ambulatory [facility] Start: 10-19-2024 Encounter for other preprocedural examination [facility] Start: 10-17-2024 End: 10-17-2024 Patient encounter procedure [facility] 10 [facility] Comment on above: Preop testing (Prima ry Dx) Start: 10-17-2024 End: 10-17-2024 Patient encounter status [facility] Work Phone: Start: 10-17-2024 End: 10-17-2024 ambulatory [facility] Start: 10-17-2024 Encounter for other preprocedural examination [facility] Start: 10-09-2024 End: 10-09-2024 Telephone encounter Sarah Vasquez CMA [facility] Start: 10-01-2024 End: 10-01-2024 Office outpatient visit 15 minutes [facility] Comment on above: Acute sinusitis, rec urrence not specified, unspecified location (Primary Dx); Acquired hypothyroidism; Fibromyalgia Start: 10-01-2024 End: 10-01-[address] [facility] Start: 09-23-2024 End: 09-24-2024 Refill Carolyn Jackson MD Work Phone: [facility] Start: 08-29-2024 End: 08-29-2024 ambulatory [facility] Start: 08-06-2024 End: 08-06-2024 Refill Carolyn Jackson MD Work Phone: [facility] Start: 08-01-2024 End: 08-01-2024 Documentation procedure [facility]il[facility] Castillo RN [facility] Start: 07-28-2024 End: 07-30-2024 Refill Carolyn Jackson MD Work Phone: [facility] Family Medicine Start: 07-17-2024 End: 07-17-2024 Office outpatient visit 15 minutes Faustino HAMPTON Work Phone: [facility] Comment on above: Fibromyalgia (Primar y Dx); Gastroesophageal reflux disease without esophagitis; Hypothyroidism, unspecified type; Tension headache; H/O blood loss; Bleeds easily ([facility]) Start: 07-17-2024 End: 07-17-2024 ambulatory [facility] Start: 07-05-2024 End: 07-05-2024 Office outpatient new 45 minutes Shahram Rivas MD Work Phone: [facility] Comment on above: Primary osteoarthrit is of left hip (Primary Dx) Start: 07-05-2024 End: 07-05-2024 Orders Only Pia Mosley [facility] Comment on above: Primary osteoarthrit is of left hip (Primary Dx); intermediate manager use of drug Start: 03-26-2024 End: 03-26-2024 Telephone encounter Sidney Vo NP Work Phone: [facility] Start: 03-10-2024 End: 03-12-2024 Refill Carolyn Jackson MD Work Phone: [facility] Family [facility] Start: 02-10-2024 End: 02-10-2024 [facility]STION ANALYST-ROUGHER OPERATOR Work Phone: [facility] Family [facility] Start: 01-29-2024 End: 01-30-2024 Refill Carolyn Jackson MD Work Phone: [facility] Family [facility] Start: 01-24-2024 End: 01-24-2024 Patient encounter status Carolyn Jackson MD Work Phone: [facility] Work Phone: Start: 01-24-2024 End: 01-24-2024 Periodic preventive med est patient 40-64yrs Carolyn Jackson MD Work Phone: [facility] Family Medicine Comment on above: Routine general medi ivelisse examination at a health care facility (Primary Dx); Screen for colon cancer; Encounter for screening mammogram for malignant neoplasm of breast Start: 01-24-2024 End: 01-24-2024 ambulatory CAROLYN JACKSON [facility] Start: 01-24-2024 Encounter for genera l adult medical examination without abnormal findings CAROLYN JACKSON [facility] Start: 01-12-2024 End: 01-12-2024 Orders Only Carolyn Jackson MD Work Phone: [facility] Family [facility] Start: 12-23-2023 End: 12-23-2023 Refill Carolyn Jackson MD Work Phone: [facility] Medicine Start: 08-16-2023 Refill Carolyn carroll MD Work Phone: [facility] Medicine Start: 07-15-2023 Refill Nicolette Young [facility] Start: 06-26-2023 Refill Carolyn carroll MD Work Phone: [facility] Start: 11-07-2021 End: 11-07-2021 ambulatory Deja Hodges Other [employer] Other Start: 11-07-2021 Office outpatient ne w 20 minutes Deja Hodges [facility] Start: 11-07-2021 End: 11-07-2021 Departed Referred EVISCERATOR-C Deja Hodges Work Phone: [facility] Start: 03-10-2021 End: 03-11-[address] DOCTOR LANDERS Facility:[facility]1 Start: 04-22-2020 End: 04-23-[address] CAROLYN JACKSON Facility:[facility] Procedures Date Procedure Procedure Detail Performing Clinician Start: 01-24-2025 Urnls dip stick/tabl et rgnt non-auto w/o micrscp South Avila MD Work Phone: Start: 01-24-2025 Adult depression scr eening assessment South Avila MD Work Phone: Start: 10-19-2024 Urnls dip stick/tabl et rgnt non-auto w/o micrscp Faustino Amin COMBUSTION ANALYST-ROUGHER OPERATOR Work Phone: Start: 10-19-2024 Adult depression scr eening assessment Faustino Alconchita COMBUSTION ANALYST-ROUGHER OPERATOR Work Phone: Start: 10-01-2024 Adult depression scr eening assessment South Avila MD Work Phone: Start: 07-17-2024 Adult depression scr eening assessment Faustino Amin COMBUSTION ANALYST-ROUGHER OPERATOR Work Phone: Start: 01-24-2024 Adult depression scr eening assessment Carolyn Jackson MD Work Phone: Start: 04-13-2023 Mammography Carolyn solorio MD Work Phone: Start: 01-20-2023 Adult depression scr eening assessment Carolyn Jackson MD Work Phone: Plan of Treatment Date Care Activity Detail Author Start: 04-11-2027 Screening for malignant neoplasm of colon [facility] Start: 01-24-2026 Adult BMI Screening Adult BMI Screening [facility] Start: 01-24-2026 Depression Screening Depression Screening [facility] Start: 01-24-2026 Tobacco Screening Tobacco Screening [facility] Start: 01-21-2026 Tobacco Screening Tobacco Screening [facility] Start: 01-06-2026 Adult BMI Screening Adult BMI Screening [facility] Start: 12-24-2025 Adult BMI Screening Adult BMI Screening [facility] Start: 12-24-2025 Tobacco Screening Tobacco Screening [facility] Start: 11-28-2025 Tobacco Screening Tobacco Screening [facility] Start: 11-14-2025 Adult BMI Screening Adult BMI Screening [facility] Start: 11-14-2025 Tobacco Screening Tobacco Screening [facility] Start: 11-07-2025 Adult BMI Screening Adult BMI Screening [facility] Start: 11-07-2025 Tobacco Screening Tobacco Screening [facility] Start: 10-31-2025 Adult BMI Screening Adult BMI Screening [facility] Start: 10-31-2025 Tobacco Screening Tobacco Screening [facility] Start: 10-21-2025 End: 10-21-2025 Patient encounter procedure 10/21/2025 9:40 AM EDT Office Visit [facility] [address] [place] [address] Augie Schultz, COMBUSTION ANALYST-ROUGHER OPERATOR [address] [place] [address] Jose Mccann [facility] Start: 10-19-2025 Adult BMI Screening Adult BMI Screening [facility] Start: 10-19-2025 Depression Screening Depression Screening [facility] Start: 10-19-2025 Tobacco Screening Tobacco Screening [facility] Start: 10-17-2025 Adult BMI Screening Adult BMI Screening [facility] Start: 10-17-2025 Tobacco Screening Tobacco Screening [facility] Start: 10-01-2025 Adult BMI Screening Adult BMI Screening [facility] Start: 10-01-2025 Depression Screening Depression Screening [facility] Start: 10-01-2025 Tobacco Screening Tobacco Screening [facility] Start: 07-17-2025 Adult BMI Screening Adult BMI Screening [facility] Start: 07-17-2025 Depression Screening Depression Screening [facility] Start: 07-17-2025 Tobacco Screening Tobacco Screening [facility] Start: 07-05-2025 Adult BMI Screening Adult BMI Screening [facility] Start: 07-05-2025 Tobacco Screening Tobacco Screening [facility] Start: 03-14-2025 End: 03-14-2025 Patient encounter procedure 03/14/2025 8:00 AM EDT Office Visit [facility] [address] [place] [phone] Faustino Amin, COMBUSTION ANALYST-ROUGHER OPERATOR [address] [place] [address] [facility] Start: 02-07-2025 End: 02-07-2025 Patient encounter procedure 02/07/2025 7:30 AM EDT Appointment [facility] - Ultrasound [address] [place] [address] [facility] Start: 02-04-2025 Influenza vaccination [facility] Start: 01-28-2025 End: 01-28-2025 Patient encounter procedure 01/28/2025 8:00 AM EDT Office Visit [facility] [address] [place] [address] Faustino Amin, COMBUSTION ANALYST-ROUGHER OPERATOR [address] [place] [address] [facility] Start: 01-24-2025 End: 01-24-2026 US Retroperitoneum Ultrasound retroperitoneal complete Imaging Routine Cystitis Expected: 01/24/2025, Expires: 01/24/2026 [facility] Work Phone: Comment on above: Expected: 01/24/2025, Expires: Start: 01-23-2025 Adult BMI Screening Adult BMI Screening [facility] Start: 01-23-2025 Depression Screening Depression Screening [facility] Start: 01-23-2025 Tobacco Screening Tobacco Screening [facility] Start: 01-21-2025 End: 01-21-2025 Patient encounter procedure 01/21/2025 9:40 AM EDT [facility] [address] [place] [phone] Augie Schultz, COMBUSTION ANALYST-ROUGHER OPERATOR [address] [place] [address] [facility] Start: 01-11-2025 End: 01-11-2025 Patient encounter procedure 01/11/2025 7:30 AM EDT Appointment [facility] - Cardiovascular [address] [place] [address] [facility] Start: 01-03-2025 End: 01-03-2025 Patient encounter procedure 01/03/2025 4:00 PM EDT Appointment [facility] [address] [place] [address] Aftercare following left hip joint replacement surgery [facility] Comment on above: Aftercare following left hip joint repla cement surgery Start: 12-31-2024 End: 12-31-2024 Patient encounter procedure 12/31/2024 3:00 PM EDT Office Visit JUSTIN LOUISE [address] [facility] [place] [phone] Kimberly Song CNM [address] [facility] [place] [address] Arrived JUSTIN LOUISE Comment on above: Arrived Start: 12-31-2024 End: 03-03-2026 DBT Breast - bilateral screening Bilateral screening mammogram with tomosynthesis Imaging Routine Breast cancer screening by mammogram Expected: 12/31/2024, Expires: 03/03/2026 [facility] Work Phone: Comment on above: Expected: 12/31/2024, Expires: Start: 12-24-2024 End: 12-24-2024 Patient encounter procedure 12/24/2024 10:20 AM EDT Office Visit [facility] [address] [place] [address] Augie Schultz, COMBUSTION ANALYST-ROUGHER OPERATOR [address] [place] [address] [facility] Start: 12-23-2024 Urine culture [facility] Start: 12-22-2024 Bacteria identified in Urine by Culture Urine Culture [facility] Start: 11-28-2024 End: 11-28-2024 Patient encounter procedure 11/28/2024 8:40 AM EDT Office Visit [facility] [address] [place] [address] Augie Schultz, COMBUSTION ANALYST-ROUGHER OPERATOR [address] [place] [address] [facility] Start: 11-27-2024 End: 11-27-2024 Patient encounter procedure 11/27/2024 1:00 PM EDT Appointment [facility] [address] [place] [address] [facility] Start: 11-14-2024 End: 11-14-2024 Patient encounter procedure 11/14/2024 8:20 AM EDT Office Visit [facility] [address] [place] [address] Augie Schultz, COMBUSTION ANALYST-ROUGHER OPERATOR [address] [place] [address] [facility] Start: 11-07-2024 End: 11-07-2025 XR Pelvis and Hip - left 2 Views [facility] Work Phone: Comment on above: Expected: 11/07/2024, Expires: Start: 11-07-2024 End: 11-07-2024 Patient encounter procedure 11/07/2024 1:00 PM EDT Office Visit [facility] [address] [place], [place] [phone] Augie Schultz, COMBUSTION ANALYST-ROUGHER OPERATOR [address] [place] [address] [facility] Start: 10-31-2024 End: 10-31-2024 Admission to same day surgery center 10/31/2024 8:30 AM EDT - 10/31/2024 10:15 AM EDT Surgery [facility] Spine [facility] - Surgery [address] [place], [place] [phone] Shahram Rivas MD [address] [place], [place] REPLACEMENT TOTAL JOINT HIP ANTERIOR SUPINE INTERMUSCULAR [64375 (CPT )] [facility] Comment on above: REPLACEMENT TOTAL JOINT HIP ANTERIOR SUP INE INTERMUSCULAR [43593 (CPT )] Start: 10-31-2024 End: 10-31-2024 Arthrp acetblr/prox fem prostc agrft/algrft REPLACEMENT TOTAL JOINT HIP ANTERIOR SUPINE INTERMUSCULAR Primary osteoarthritis of left hip 10/31/2024 8:30 AM EDT [facility] Start: 10-31-2024 Subsequent hospital visit by physician 10/31/2024 8:30 AM EDT Hospital Encounter [facility] [address] [place] [address] Shahram Rivas MD [address] [place] [address] [facility] Start: 10-19-2024 End: 10-19-2024 Patient encounter procedure 10/19/2024 8:00 AM EDT Office Visit [facility] [address] [place] [address] Faustino Amin APRN-ROUGHER OPERATOR [address] [place] [address] [facility] Start: 10-17-2024 End: 10-17-2024 Patient encounter procedure 10/17/2024 12:45 PM EDT Procedure visit [facility] [address] [address] [facility] Start: 07-26-2024 End: 07-26-2024 Patient encounter procedure 07/26/2024 8:00 AM EST Office Visit [facility] [address] [place] [address] Faustino Amin, COMBUSTION ANALYST-ROUGHER OPERATOR [address] [place] [address] [facility] Start: 07-17-2024 End: 07-17-2024 Patient encounter procedure 07/17/2024 8:00 AM EST [facility] [address] [place] [phone] Faustino Amin, COMBUSTION ANALYST-ROUGHER OPERATOR [address] [place] [address] [facility] Start: 04-13-2024 Screening for malignant neoplasm of breast Mammogram [facility] Start: 02-05-2024 COVID-19 Vaccine ( season) COVID-19 Vaccine ( season) [facility] Start: 02-05-2024 COVID-19 Vaccine () COVID-19 Vaccine () [facility] Start: 02-05-2024 Influenza vaccination [facility] Start: 01-29-2024 Screening for malignant neoplasm of colon Colon Cancer Screening 3 Year Cologuard [facility] Start: 01-24-2024 End: 01-23-2025 CBC W Auto Differential panel - Blood CBC auto differential Lab Routine Routine general medical examination at a [facility] care [facility] Expected: 01/24/2024, Expires: 01/23/2025 [facility] Work Phone: Comment on above: Expected: 01/24/2024, Expires: Start: 01-24-2024 End: 01-23-2025 Comprehensive metabolic 2000 panel - Serum or Plasma Comprehensive metabolic panel Lab Routine Routine general medical examination at a health care facility Expected: 01/24/2024, Expires: 01/23/2025 [facility] Comment on above: Expected: 01/24/2024, Expires: Start: 01-24-2024 End: 01-23-2025 Lipid 1996 panel - Serum or Plasma Lipid profile Lab Routine Routine general medical examination at a health care facility Expected: 01/24/2024, Expires: 01/23/2025 [facility] Comment on above: Expected: 01/24/2024, Expires: Start: 01-24-2024 End: 01-23-2025 Thyroid profile includes TSH FT4 Thyroid profile includes TSH FT4 Lab Routine Routine general medical examination at a health care facility Expected: 01/24/2024, Expires: 01/23/2025 [facility] Comment on above: Expected: 01/24/2024, Expires: Start: 01-24-2024 End: 01-23-2025 Vitamin D 25 hydroxy Vitamin D 25 hydroxy Lab Routine Routine general medical examination at a health care facility Expected: 01/24/2024, Expires: 01/23/2025 [facility] Comment on above: Expected: 01/24/2024, Expires: Start: 01-24-2024 End: 01-24-2024 Patient encounter procedure 01/24/2024 8:00 AM EDT Office Visit [facility] [address] [place] [phone] Carolyn Jackson MD [address] [place] [address] [facility] Start: 01-22-2024 Screening for malignant neoplasm of colon [facility] Start: 01-21-2024 Adult BMI Screening Adult BMI Screening [facility] Start: 01-21-2024 Depression Screening Depression Screening [facility] Start: 01-21-2024 Tobacco Screening Tobacco Screening [facility] Start: 02-04-2023 COVID-19 Vaccine ( season) COVID-19 Vaccine () [facility] Start: 02-04-2023 Influenza vaccination Influenza Vaccine [facility] Start: 11-07-2021 Bacteria identified in Urine by Culture Urine Culture [facility] Start: 2016 Administration of varicella zoster vaccine Zoster (Shingles) Vaccine (1 of 2) [facility] Start: 1996 Screening for malignant neoplasm of cervix [facility] Start: 10-23-1987 Screening for malignant neoplasm of cervix Pap Smear [facility] Start: 1985 DTaP,Tdap and Td Vaccines (1 - Tdap) DTaP,Tdap and Td Vaccines (1 - Tdap) [facility] Start: 1966 Screening for malignant neoplasm of colon [facility] Bacteria identified in Urine by Culture [facility] Work Phone: Bacteria identified in Urine by Culture Urine culture (clean catch) Microbiology Routine Cystitis 01/24/2025 11:04 AM EDT [facility] End: 07-05-2025 CBC panel - Blood by Automated count CBC without diff Lab Routine Primary osteoarthritis of left hip shelter use of drug 1 Occurrences starting 07/05/2024 until 07/05/2025 [email or web address]: Comment on above: 1 Occurrences starting 07/05/2024 until 07/05/2025 [facility] Lab Routine Screen for colon cancer Ordered: 01/24/2024 [facility] [employer] [facility] Comment on above: Ordered: 01/24/2024 End: 01-23-2025 DBT Breast - bilateral screening Mammography screening bilateral with CAD Imaging Routine Encounter for screening mammogram for malignant neoplasm of breast 1 Occurrences starting 01/24/2024 until 01/23/2025 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 1 Occurrences starting 07/05/2024 until 07/05/2025 [facility] [employer] Comment on above: 1 Occurrences starting 07/05/2024 until 07/05/2025 Urine culture [facility] Immunizations Immunization Date Immunization Notes Care Provider Juan J smith 10-11-2013 rabies vaccine, for intramuscular injection Carolyn Jackson MD Work Phone: [facility] [employer] 09-27-2013 rabies vaccine, for intramuscular injection Carolyn Jackson MD Work Phone: [facility] 09-20-2013 rabies vaccine, for intramuscular injection Carolyn Jackson MD Work Phone: [facility] 09-13-2013 rabies vaccine, for intramuscular injection Carolyn Jackson MD Work Phone: [facility] Payers Date Payer Category Payer Self-pay [id number] 2022 Auto Insurance [employer] [id number] 2022 Managed Care Other (unspecified) [employer] [id number] 2022 Private Health Insurance [id number] [id number] 2022 Unknown [id number] 1966 Unknown [id number] 2.16.840.1.295700.3.579. 2.593 1966 Unknown [id number] 2.16.840.1.554912.3.579. 2.593 1966 Unknown [id number] 2.16.840.1.017133.3.579. 2.1285 1966 Unknown [id number] 2.16.840.1.933595.3.579. 2.1285 1966 Unknown [id number] 2.16.840.1.086781.3.579. 2.1285 1966 Unknown [id number] 2.16.840.1.902558.3.579. 2.1285 1966 Unknown [id number] 2.16.840.1.958605.3.579. 2.9 1966 Unknown [id number] 2.16.840.1.911128.3.579. 2.1285 1966 Unknown [id number] 2.16.840.1.860440.3.579. 2.1285 1966 Unknown [id number] 2.16.840.1.815491.3.579. 2.1285 1966 Unknown [id number] 2.16.840.1.811427.3.579. 2.1285 1966 Unknown [id number] 2.16.840.1.183909.3.579. 2.1285 1966 Unknown [id number] 2.16.840.1.297899.3.579. 2.1285 1966 Unknown [id number] 2.16.840.1.100865.3.579. 2.1285 1966 Unknown [id number] 2.16.840.1.514158.3.579. 2.1285 1966 Unknown [id number] 2.16.840.1.550219.3.579. 2.1285 1966 Unknown [id number] 2.16.840.1.143417.3.579. 2.[facility] Unknown [id number] 2.16.840.1.887571.3.579. 2.[facility] 1966 Unknown [id number] 2.16.840.1.683028.3.579. 2.[facility]1966 Unknown [id number] 2.16.840.1.590997.3.579. 2.1285 1966 Unknown [id number] 2.16.840.1.599724.3.579. 2.[facility]1966 Unknown [id number] 2.16.840.1.843169.3.579. 2.[facility]1966 Unknown [id number] 2..840.1.762722.3.579. 2.[facility]1966 Unknown [id number] 2.16.840.1.365890.3.579. 2.[facility] 1959 Unknown [id number] Unknown [id number] 2.16.840.1.436213.3.579. 2.531 Social History Date Type Detail Facility [facility] [employer] Other Start: 1965 Sex Assigned At [facility] Start: 06-19-2020 End: 09-15-2023 [facility] Start: 09-15-2023 End: 12-22-2024 Tobacco smoking status NHIS Never smoked tobacco [facility] Start: 09-15-2023 End: 12-24-2024 Tobacco use and exposure Smokeless tobacco non-user [facility] [employer] [facility] Start: 09-15-2023 End: 12-31-2024 Alcoholic beverage intake Lifetime non-drinker (finding) [facility] Start: 06-19-2020 End: 09-15-2023 History of Social function [facility] [employer] [facility] Start: 1965 Sex assigned at Not on file [facility] Start: 09-14-2023 Gender identity Identifies as female gender (finding) [facility] Start: 09-14-2023 Sexual orientation Heterosexual (finding) [facility] Start: 06-25-2022 End: 12-24-2024 Tobacco smoking status NHIS Ex-smoker [facility] Start: 06-06-1984 History of tobacco use Current smoker [facility] Start: 07-05-2024 End: 01-24-2025 Alcoholic beverage intake Current non-drinker of alcohol (finding) [facility] Adolescent depressio n screening assessment 0 [facility] Start: 01-09-2015 Sex Female (finding) [facility] Start: 10-17-2024 Tobacco Comment Smoked as teen [facility] tem Start: 06-06-1984 History of tobacco use Cigarette Smoker [facility] Medical Equipment Procedure Code Equipment Code Equipment Origin al Text Equipment Identifier Dates Shell Actb 50mm Hip Lmt Hl Clr Cd Pps G7 D Hmsphr - [id number] ()[id number] , [id number] FDA Start: 10-31-2024 Liner Actb 36mm D Vivacit-E Lum G7 Hip Strl Lf - [id number] ()[id number] , [id number] FDA Start: 10-31-2024 Head Fem 36mm G7 Blx D Biolox Opt Hip Rpl 650-1057 - [id number] ()[id number], [id number] FDA Start: 10-31-2024 Stem Fem 130mm 5 mm 133d Hi Os Tpr Tprlk Pps Ti Hip Prft Full - [id number] ()[id number] [id number] , [id number] FDA Start: 10-31-2024 Sleeve Hip -6mm Os Tpr G7 Blx D Opt Ti Centering Ty 1 Rpl 650-1064 - [id number] ()[id number] [id number], [id number] FDA Start: 10-31-2024 [address]. [address] Hip Trlg Strl Rpl [id number] - [id number] , [id number] FDA Start: 10-31-2024 Goals Date Patient Goal Desired Activity /State Personal health goal Personal health goal Comment on above: Formatting of this n ote might be different from the original. Evaluation of progress towards goal: Maximize work with PT at discharge to strengthen Left hip Clinical Notes 11-07-2021 to 01-24-2025 [place] MD - 01/24/2025 10:30 AM [place] Schultz APRN-LEON - 01/21/2025 9:40 AM EDTTelephone Encounter - Do Douglass - 01/07/2025 1:24 PM EDT Note Date & Type Note Facility 01-24-2025 History of Presen t illness Narrative [id number] [facility] [id number] Patient: Barbara Garcia Date of : 1965 Encounter Date: 01/24/2025 History of Present Illness: The patient is a 59 y.o. female, an established patient, and is here for Chief Complaint Patient presents with Flank Pain Abdominal Pain urine urgency . Patient is having suprapubic pain back pain and urinary urgency and frequency for the last 1 week. Denies any blood in urine. No fever. No nausea or vomiting Patient has been getting 1 UTI episode per year in the last 2 3 years Flank Pain Associated symptoms include abdominal pain. Pertinent negatives include no chest pain, dysuria or fever. Abdominal Pain Pertinent negatives include no arthralgias, dysuria, fever, hematuria or vomiting. Past Medical, Family, and Social History Update: The following portions of the patient's history were reviewed and updated as appropriate: allergies, current medications, past family history, past medical history, past social history, past surgical history and problem list. Past Medical History: Diagnosis Date Basal cell carcinoma 2005 & 2006 Dental disease 10/17/2024 2 permanent crowns Fibromyalgia GERD (gastroesophageal reflux disease) past history, no meds Hypothyroidism Liver hemangioma Migraine about 1-2 per month Primary osteoarthritis of left hip 10/17/2024 Seasonal allergies Shingles Sinus infection 10/17/2024 on antibiotics Wears glasses 10/17/2024 Past Surgical History: Procedure Laterality Date CARPAL TUNNEL RELEASE Left 2002 HYSTERECTOMY 2005 ONE OVARY REMOVED JOINT REPLACEMENT OOPHORECTOMY Right 2004 LEFT IS NON-WORKING REPLACEMENT TOTAL JOINT HIP ANTERIOR SUPINE INTERMUSCULAR Left 10/31/2024 Performed by Shahram Rivas MD at [facility] BIOPSY THORACIC OUTLET SURGERY [address] [facility] Current Outpatient Medications Medication Sig Dispense Refill buPROPion SR (WELLBUTRIN SR) 150 mg 12 hr tablet TAKE 1 TABLET(150 MG) BY MOUTH EVERY MORNING AND EVERY NIGHT AT BEDTIME 180 tablet 2 ctbrlcvven-lqupkbalbjhbm-fzkr (FIORICET, ESGIC) 50-325-40 mg per tablet TAKE 1 TABLET BY MOUTH EVERY 6 HOURS NEEDED FOR HEADACHE 30 tablet 5 carisoprodol (SOMA) 350 mg tablet as needed for muscle spasms. 2 ergocalciferol (DRISDOL) 1,250 mcg (50,000 unit) capsule Take 1 capsule (50,000 Units total) by mouth once a week. 12 capsule 1 estradioL (VIVELLE-DOT) 0.05 mg/[address] 1 patch on the skin 2 (two) times a week. 30 patch 0 gabapentin (NEURONTIN) 100 mg capsule Take 1 capsule (100 mg total) by mouth daily with breakfast. 200 mg HS 5 levothyroxine (SYNTHROID, LEVOTHROID) 50 MCG tablet TAKE 1 TABLET(50 MCG) BY MOUTH IN THE MORNING 90 tablet 1 loratadine (CLARITIN) 10 mg tablet TAKE 2 TABLETS(20 MG) BY MOUTH DAILY 180 tablet 1 SUMAtriptan (IMITREX) 100 mg tablet TAKE 1 TABLET BY MOUTH AT ONSET OF SYMPTOMS MAY REPEAT IN 2 HOURS IF UNRESOLVED. DO NOT EXCEED 200 MG IN 24 HOURS 27 tablet 1 doxycycline (VIBRAMYCIN) 100 mg capsule Take 1 capsule (100 mg total) by mouth in the morning and 1 capsule (100 mg total) before bedtime. Do all this for 7 days. 14 capsule 0 metroNIDAZOLE (METROLOTION) 0.75 % lotion Apply 1 Application topically in the morning and 1 Application before bedtime. 59 mL 1 phenazopyridine (PYRIDIUM) 200 mg tablet Take 1 tablet (200 mg total) by mouth 3 (three) times a day as needed for bladder spasms. 10 tablet 1 No current facility-administered medications for this visit. (All medications reviewed and updated by provider since last office visit or hospitalization) Allergies: Bandage [adhesive], Pravastatin, Hismanal, and Zithromax [azithromycin] Tobacco History: Social History Tobacco Use Smoking Status Former Current packs/day: 0.25 Average packs/day: 0.3 packs/day for 47.3 years (12.2 ttl pk-yrs) Types: Cigarettes Start date: 06/06/1984 Smokeless Tobacco Never Tobacco Comments Smoked as teen (If patient a smoker, smoking cessation counseling offered) Social History: Social History Substance and Sexual Activity Alcohol Use No Review of Systems: Review of Systems Constitutional: Negative for chills and fever. HENT: Negative for ear pain and sore throat. Eyes: Negative for pain and visual disturbance. Respiratory: Negative for cough and shortness of breath. Cardiovascular: Negative for chest pain and palpitations. Gastrointestinal: Positive for abdominal pain. Negative for vomiting. Genitourinary: Positive for flank pain. Negative for dysuria and hematuria. Musculoskeletal: Negative for arthralgias and back pain. Skin: Negative for color change and rash. Neurological: Negative for seizures and syncope. All other systems reviewed and are negative. Physical Exam: BP 120/80 Pulse 87 Resp 18 Wt 54.9 kg (121 lb) SpO2 97% BMI 21.43 kg/m Physical Exam Constitutional: Appearance: She is well-developed. HENT: Head: Normocephalic and atraumatic. Nose: Nose normal. Mouth/Throat: Mouth: Mucous membranes are moist. Eyes: Pupils: Pupils are equal, round, and reactive to light. Cardiovascular: Rate and Rhythm: Normal rate and regular rhythm. Heart sounds: Normal heart sounds. No murmur heard. Pulmonary: Effort: Pulmonary effort is normal. No respiratory distress. Breath sounds: Normal breath sounds. No wheezing. Abdominal: General: Bowel sounds are normal. Palpations: Abdomen is soft. Tenderness: There is abdominal tenderness. There is right CVA tenderness. Musculoskeletal: General: Normal range of motion. Cervical back: Neck supple. Right lower leg: No edema. Left lower leg: No edema. Lymphadenopathy: Cervical: No cervical adenopathy. Skin: General: Skin is warm and dry. Findings: No rash. Neurological: Mental Status: She is alert and oriented to person, place, and time. Cranial Nerves: No cranial nerve deficit. Lab Results Component Value Date GLU 93 01/06/2025 CALCIUM 8.8 01/06/2025 SODIUM 136 01/06/2025 K 3.7 01/06/2025 CO2 25 01/06/2025 BUN 14 01/06/2025 CREATININE 0.86 01/06/2025 Lab Results Component Value Date WBC 6.3 01/06/2025 HGB 12.0 01/06/2025 HCT 36.2 01/06/2025 MCV 87 01/06/2025 PLT 206 01/06/2025 Lab Results Component Value Date HGBA1C 5.4 08/29/2024 Assessment and Plan: Barbara was seen today for flank pain, abdominal pain and urine urgency . Diagnoses and all orders for this visit: Cystitis - doxycycline (VIBRAMYCIN) 100 mg capsule; Take 1 capsule (100 mg total) by mouth in the morning and 1 capsule (100 mg total) before bedtime. Do all this for 7 days. - phenazopyridine (PYRIDIUM) 200 mg tablet; Take 1 tablet (200 mg total) by mouth 3 (three) times a day as needed for bladder spasms. - Ultrasound retroperitoneal complete; Future - Urine culture (clean catch) - POCT urinalysis dipstick only Rosacea - metroNIDAZOLE (METROLOTION) 0.75 % lotion; Apply 1 Application topically in the morning and 1 Application before bedtime. Patient advised to avoid the sun while using doxycycline. Follow-up: Return for Next scheduled follow up. 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 female here today for postop appointment concerning a left total hip replacement that was performed on 10/31/[address] Rivas. Patient reports that she is doing well and walking with no assistive devices. She does report that she is finishing up some physical therapy and we would like to return to work next Tuesday. She is afebrile and very happy with her replacement so far. Past Medical History: Past Medical History: Diagnosis Date Basal cell carcinoma 2004 & 2006 Dental disease 10/17/2024 2 permanent crowns Fibromyalgia GERD (gastroesophageal reflux disease) past history, no meds Hypothyroidism Liver hemangioma Migraine about 1-2 per month Primary osteoarthritis of left hip 10/17/2024 Seasonal allergies Shingles Sinus infection 10/17/2024 on antibiotics Wears glasses 10/17/2024 Past Surgical History: Procedure Laterality Date CARPAL TUNNEL RELEASE Left 2001 HYSTERECTOMY 2004 ONE OVARY REMOVED JOINT REPLACEMENT OOPHORECTOMY Right 2004 LEFT IS NON-WORKING REPLACEMENT TOTAL JOINT HIP ANTERIOR SUPINE INTERMUSCULAR Left 10/31/2024 Performed by Shahram Rivas MD at [facility] BIOP[facility] THORACIC OUTLET SURGERY [address] [facility] Medications: Current Outpatient Medications: aspirin 81 mg chewable tablet, Chew 1 tablet (81 mg total) and swallow in the morning., Disp: 30 tablet, Rfl: 1 buPROPion SR (WELLBUTRIN SR) 150 mg 12 hr tablet, TAKE 1 TABLET(150 MG) BY MOUTH EVERY MORNING AND EVERY NIGHT AT BEDTIME, Disp: 180 tablet, Rfl: 2 nvjwibdxvw-lewcvhgiqusja-dgzq (FIORICET, ESGIC) 50-325-40 mg per tablet, TAKE 1 TABLET BY MOUTH EVERY 6 HOURS NEEDED FOR HEADACHE, Disp: 30 tablet, Rfl: 5 carisoprodol (SOMA) 350 mg tablet, as needed for muscle spasms., Disp: , Rfl: 2 ergocalciferol (DRISDOL) 1,250 mcg (50,000 unit) capsule, Take 1 capsule (50,000 Units total) by mouth once a week., Disp: 12 capsule, Rfl: 1 estradioL (VIVELLE-DOT) 0.05 mg/24 hr, Place 1 patch on the skin 2 (two) times a week., Disp: 30 patch, Rfl: 0 famotidine (PEPCID) 20 mg tablet, Take 1 tablet (20 mg total) by mouth in the morning and 1 tablet (20 mg total) before bedtime. (Patient not taking: Reported on 12/24/2024), Disp: 60 tablet, Rfl: 0 gabapentin (NEURONTIN) 100 mg capsule, Take 1 capsule (100 mg total) by mouth daily with breakfast. 200 mg HS, Disp: , Rfl: 5 levothyroxine (SYNTHROID, LEVOTHROID) 50 MCG tablet, TAKE 1 TABLET(50 MCG) BY MOUTH IN THE MORNING, Disp: 90 tablet, Rfl: 1 loratadine (CLARITIN) 10 mg tablet, TAKE 2 TABLETS(20 MG) BY MOUTH DAILY, Disp: 180 tablet, Rfl: 1 nitrofurantoin, macrocrystal-monohydrate, (MACROBID) 100 mg capsule, Take 1 capsule (100 mg total) by mouth in the morning and 1 capsule (100 mg total) before bedtime., Disp: , Rfl: phenazopyridine (PYRIDIUM) 200 mg tablet, Take 1 tablet (200 mg total) by mouth 3 (three) times a day as needed for bladder spasms., Disp: , Rfl: SUMAtriptan (IMITREX) 100 mg tablet, TAKE 1 TABLET BY MOUTH AT ONSET OF SYMPTOMS MAY REPEAT IN 2 HOURS IF UNRESOLVED. DO NOT EXCEED 200 MG IN 24 HOURS, Disp: 27 tablet, Rfl: 1 Allergies and adverse reactions: Allergies Allergen Reactions Bandage [Adhesive] Other (See Comments) Redness, blistering some times Pravastatin Hives Hismanal Tachycardia Zithromax [Azithromycin] GI Disturbance heartburn Social History: Social History Socioeconomic History Marital status: Spouse name: Not on file Number of children: Not on file Years of education: Not on file Highest education level: Not on file Occupational History Not on file Tobacco Use Smoking status: Former Current packs/day: 0.25 Average packs/day: 0.3 packs/day for 47.3 years (12.2 ttl pk-yrs) Types: Cigarettes Start date: 06/06/1984 Smokeless tobacco: Never Tobacco comments: Smoked as teen Vaping Use Vaping status: Never Used Substance and Sexual Activity Alcohol use: No Drug use: No Sexual activity: Defer Other Topics Concern Not on file Social History Narrative Not on file Social Drivers of Health Financial Resource Strain: Not on file Food Insecurity: No Food Insecurity (01/06/2025) Hunger Screening Food Insecurity - Worry: Never True Food Insecurity - Inability: Never True Transportation Needs: Not on file Physical Activity: Not on file Stress: Not on file Social Connections: Not on file Interpersonal Safety: Not on file Housing Instability: Not on file Family History: Family History Problem Relation Age of Onset Heart failure Mother Heart failure Brother Cardiomyopathy Maternal Grandmother Heart failure Maternal Grandmother Breast cancer Neg Hx Anesthesia problems Neg Hx ROS: Constitutional No fever No chills Musculoskeletal Joint pain Objective: General Appearance : Well appearing Comfortable Orientation: Oriented to Person Place Time Mood and Affect: Normal Gait: Normal Right Left Hip exam Internal rotation: 20 External rotation: 25 No pain with internal or external rotation of the hip mild discomfort at the trochanteric bursal region however this has improved Surgical incision is scarred over - all compartments compressible Quad strength 5/5 Knee exam Extension: 0 Flexion: 120 Effusion: - Cardiovascular Posterior tibialis pulse is 2+ to palpation. The foot is warm to touch. Posterior tibialis pulse is 2+ to palpation. The foot is warm to touch and Dorsalis pedis pulse is 2+ to palpation. The foot is warm to touch. Sensation The superficial peroneal and tibial nerve distributions have normal sensation to light touch. The superficial peroneal and tibial nerve distributions have normal sensation to light touch Strength Hip flexion, knee extension, and ankle dorsiflexion are 5/5. Knee extension and ankle dorsiflexion are 5/5. Hip flexion is 5/5. Labs: Lab Results Component Value Date HGB 12.0 01/06/2025 HGB 12.7 10/30/2024 HGB 12.1 08/29/2024 Lab Results Component Value Date CREATININE 0.86 01/06/2025 CREATININE 0.89 10/30/2024 CREATININE 0.93 04/13/2023 No results found for: CRP No results found for: SEDRATE Lab Results Component Value Date CULTURE No growth at 1 day 06/14/2014 Imaging: Radiographs of the left hip were reviewed. Findings: Previous x-ray of the left hip is satisfactory with no evidence of fracture or loosening Assessment: 1. Aftercare following left hip joint replacement surgery Plan: Patient continuing to do excellent status post left total hip replacement -continue to walk and work on range of motion and strengthening of the hip. Patient has done a very nice job - discussed dental protocol in detail - note provided for return to work next Tuesday with no restrictions - we will plan on seeing the patient back in 1 year from surgery with a repeat x-ray - call if any acute changes MEMO Yanez 01/21/25 1020 documented in this encounter [facility] 01-07-2025 Miscellaneous Notes Received new patient referral. Please call patient to schedule a new patient appointment for Weakness of both lower extremities IS THIS DUE TO AN ACCIDENT? IS THIS WORKER'S COMP? PLEASE VERIFY IF THIS IS WORKERS COMP AND DOCUMENT (We do not accept any new workers comp cases) WHAT INSURANCE? HAVE YOU EVER BEEN SEEN BY A NEUROLOGIST BEFORE? 1st attempt: Called and left patient a voicemail letting them know we have received their referral, are ready to schedule, and to call us back at their earliest convenience to do so. Respiratory Scientist provided callback number for scheduling or to address any questions or concerns they may have. 2nd attempt: Called and left patient a voicemail once more letting them know we have received their referral, are ready to schedule, and to call us back at their earliest convenience to do so. Respiratory Scientist provided callback number for scheduling or to address any questions or concerns they may have. documented in this encounter [facility] 01-07-2025 Telephone encounter Note Received new patient referral. Please call patient to schedule a new patient appointment for Weakness of both lower extremities IS THIS DUE TO AN ACCIDENT? IS THIS WORKER'S COMP? PLEASE VERIFY IF THIS IS WORKERS COMP AND DOCUMENT (We do not accept any new workers comp cases) WHAT INSURANCE? HAVE YOU EVER BEEN SEEN BY A NEUROLOGIST BEFORE? [facility] 01-07-2025 Telephone encounter Note 1st attempt: Called and left patient a voicemail letting them know we have received their referral, are ready to schedule, and to call us back at their earliest convenience to do so. Respiratory Scientist provided callback number for scheduling or to address any questions or concerns they may have. [facility] 01-07-2025 Telephone encounter Note 2nd attempt: Called and left patient a voicemail once more letting them know we have received their referral, are ready to schedule, and to call us back at their earliest convenience to do so. Respiratory Scientist provided callback number for scheduling or to address any questions or concerns they may have. [facility] 12-31-2024 History of Presen t illness Narrative YEARLY HPI: This is a new patient. Chief Complaint Patient presents with Gynecologic Exam Here for annual exam. 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 Allergies: Allergies Allergen Reactions Pravastatin Hives Astemizole Azithromycin Other heartburn Medications: Current Outpatient Medications on File Prior to Visit Medication Sig Dispense Refill buPROPion SR (Wellbutrin SR) 150 MG 12 hr tablet TAKE 1 TABLET(150 MG) BY MOUTH EVERY MORNING AND EVERY NIGHT AT BEDTIME mphwqbhkmv-sasrtwdrrezii-spoegir e 50-325-40 MG tablet TAKE 1 TABLET BY MOUTH EVERY 6 HOURS NEEDED FOR HEADACHE carisoprodol (Soma) 350 MG tablet Take 350 mg by mouth 2 (two) times a day as needed estradiol (Vivelle-DOT) 0.05 MG/24HR APPLY 1 PATCH TOPICALLY TO THE SKIN 2 TIMES A WEEK gabapentin (Neurontin) 100 MG capsule levothyroxine (Synthroid, Levoxyl) 50 MCG tablet TAKE 1 TABLET(50 MCG) BY MOUTH IN THE MORNING loratadine (Claritin) 10 MG tablet TAKE 2 TABLETS(20 MG) BY MOUTH DAILY SUMAtriptan (Imitrex) 100 MG tablet One at onset of symptoms May repeat in 2 hours if unresolved. Do not exceed 200 mg in 24 hours. traMADol (Ultram) 50 MG tablet [DISCONTINUED] doxycycline (Monodox) 100 MG capsule [DISCONTINUED] zolpidem (Ambien) 10 MG tablet Take 10 mg by mouth at bedtime No current facility-administered medications on file prior to visit. ROS: Review of Systems There were no vitals filed for this visit. Physical exam: Physical Exam Vitals reviewed. Constitutional: Appearance: Normal appearance. HENT: Head: Normocephalic. Right Ear: Tympanic membrane normal. Left Ear: Tympanic membrane normal. Mouth/Throat: Mouth: Mucous membranes are moist. Eyes: Pupils: Pupils are equal, round, and reactive to light. Cardiovascular: Rate and Rhythm: Normal rate and regular rhythm. Pulses: Normal pulses. Heart sounds: Normal heart sounds. Pulmonary: Effort: Pulmonary effort is normal. Breath sounds: Normal breath sounds. Chest: Breasts: Right: Normal. Left: Normal. Abdominal: General: Abdomen is flat. Bowel sounds are normal. Palpations: Abdomen is soft. Tenderness: There is no abdominal tenderness. Genitourinary: General: Normal vulva. Exam position: Lithotomy position. Vagina: Normal. No tenderness. Uterus: Absent. Adnexa: Right adnexa normal and left adnexa normal. Comments: S/p hysterectomy, bimanual exam done Musculoskeletal: General: Normal range of motion. Cervical back: Normal range of motion and neck supple. Skin: General: Skin is warm and dry. Neurological: General: No focal deficit present. Mental Status: She is alert and oriented to person, place, and time. Psychiatric: Mood and Affect: Mood normal. Assessment and Plan: 1. Annual exam 2. SBE discussed: Yes 3. Diet and exercise discussed: No 4. Wt control discussed: No 5. Safe sex discussed: No There are no diagnoses linked to this encounter. Discussed menopause and how long she can be on the HRT, We keep women on them indefinitely as needed. We will evaluate every year. RX sent to pharmacy and mammogram order sent to [facility] No follow-ups on file. There are no Patient Instructions on file for this visit. 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 female here today for postop appointment concerning a left total hip replacement that was performed on 10/31/[address] Rivas. Patient reports that she is doing well pain casey and reports that this is around a 2/10. She does feel that she is walking off balance at times in his using no assistive devices at this time. She does still have some tenderness to the trochanteric bursal region as well where it just feels relatively tight. She is afebrile and here today with her Past Medical History: Past Medical History: Diagnosis Date Basal cell carcinoma 2004 & 2006 Dental disease 10/17/2024 2 permanent crowns Fibromyalgia GERD (gastroesophageal reflux disease) past history, no meds Hypothyroidism Liver hemangioma Migraine about 1-2 per month Primary osteoarthritis of left hip 10/17/2024 Seasonal allergies Shingles Sinus infection 10/17/2024 on antibiotics Wears glasses 10/17/2024 Past Surgical History: Procedure Laterality Date CARPAL TUNNEL RELEASE Left 2002 HYSTERECTOMY 2005 ONE OVARY REMOVED JOINT REPLACEMENT OOPHORECTOMY Right 2004 LEFT IS NON-WORKING REPLACEMENT TOTAL JOINT HIP ANTERIOR SUPINE INTERMUSCULAR Left 10/31/2024 Performed by Shahram Rivas MD at [facility] BIOPSY THORACIC OUTLET SURGERY [address] [facility] Medications: Current Outpatient Medications: buPROPion SR (WELLBUTRIN SR) 150 mg 12 hr tablet, TAKE 1 TABLET(150 MG) BY MOUTH EVERY MORNING AND EVERY NIGHT AT BEDTIME, Disp: 180 tablet, Rfl: 2 uibbilpadm-aowoncuxlhhmk-nnxw (FIORICET, ESGIC) 50-325-40 mg per tablet, Take 1 tablet by mouth every 6 (six) hours as needed for headaches., Disp: 30 tablet, Rfl: 5 carisoprodol (SOMA) 350 mg tablet, as needed for muscle spasms., Disp: , Rfl: 2 ergocalciferol (DRISDOL) 1,250 mcg (50,000 unit) capsule, Take 1 capsule (50,000 Units total) by mouth once a week., Disp: 12 capsule, Rfl: 1 estradioL (VIVELLE-DOT) 0.05 mg/24 hr, Place 1 patch on the skin 2 (two) times a week., Disp: 30 patch, Rfl: 0 gabapentin (NEURONTIN) 100 mg capsule, Take 1 capsule (100 mg total) by mouth daily with breakfast. 200 mg HS, Disp: , Rfl: 5 levothyroxine (SYNTHROID, LEVOTHROID) 50 MCG tablet, TAKE 1 TABLET(50 MCG) BY MOUTH IN THE MORNING, Disp: 90 tablet, Rfl: 1 loratadine (CLARITIN) 10 mg tablet, TAKE 2 TABLETS(20 MG) BY MOUTH DAILY, Disp: 180 tablet, Rfl: 1 nitrofurantoin, macrocrystal-monohydrate, (MACROBID) 100 mg capsule, Take 1 capsule (100 mg total) by mouth in the morning and 1 capsule (100 mg total) before bedtime., Disp: , Rfl: phenazopyridine (PYRIDIUM) 200 mg tablet, Take 1 tablet (200 mg total) by mouth 3 (three) times a day as needed for bladder spasms., Disp: , Rfl: SUMAtriptan (IMITREX) 100 mg tablet, TAKE 1 TABLET BY MOUTH AT ONSET OF SYMPTOMS MAY REPEAT IN 2 HOURS IF UNRESOLVED. DO NOT EXCEED 200 MG IN 24 HOURS, Disp: 27 tablet, Rfl: 1 famotidine (PEPCID) 20 mg tablet, Take 1 tablet (20 mg total) by mouth in the morning and 1 tablet (20 mg total) before bedtime. (Patient not taking: Reported on 12/24/2024), Disp: 60 tablet, Rfl: 0 Allergies and adverse reactions: Allergies Allergen Reactions Bandage [Adhesive] Other (See Comments) Redness, blistering some times Pravastatin Hives Hismanal Tachycardia Zithromax [Azithromycin] GI Disturbance heartburn Social History: Social History Socioeconomic History Marital status: Spouse name: Not on file Number of children: Not on file Years of education: Not on file Highest education level: Not on file Occupational History Not on file Tobacco Use Smoking status: Former Current packs/day: 0.25 Average packs/day: 0.3 packs/day for 47.3 years (12.1 ttl pk-yrs) Types: Cigarettes Start date: 06/06/1984 Smokeless tobacco: Never Tobacco comments: Smoked as teen Vaping Use Vaping status: Never Used Substance and Sexual Activity Alcohol use: No Drug use: No Sexual activity: Defer Other Topics Concern Not on file Social History Narrative Not on file Social Drivers of Health Financial Resource Strain: Not on file Food Insecurity: No Food Insecurity (10/19/2024) Hunger Screening Food Insecurity - Worry: Never True Food Insecurity - Inability: Never True Transportation Needs: Not on file Physical Activity: Not on file Stress: Not on file Social Connections: Not on file Interpersonal Safety: Not on file Housing Instability: Not on file Family History: Family History Problem Relation Age of Onset Heart failure Mother Heart failure Brother Cardiomyopathy Maternal Grandmother Heart failure Maternal Grandmother Breast cancer Neg Hx Anesthesia problems Neg Hx ROS: Constitutional No fever No chills Musculoskeletal Joint pain Objective: General Appearance : Well appearing Comfortable Orientation: Oriented to Person Place Time Mood and Affect: Normal Gait: Uses walker Antalgic Right Left Hip exam Internal rotation: 20 External rotation: 25 No pain with internal or external rotation of the hip Mild tenderness along the IT band region and trochanteric bursal region Surgical incision is scarred over - all compartments compressible Quad strength 4/5 Knee exam Extension: 0 Flexion: 120 Effusion: - Cardiovascular Posterior tibialis pulse is 2+ to palpation. The foot is warm to touch. Posterior tibialis pulse is 2+ to palpation. The foot is warm to touch and Dorsalis pedis pulse is 2+ to palpation. The foot is warm to touch. Sensation The superficial peroneal and tibial nerve distributions have normal sensation to light touch. The superficial peroneal and tibial nerve distributions have normal sensation to light touch Strength Hip flexion, knee extension, and ankle dorsiflexion are 5/5. Knee extension and ankle dorsiflexion are 5/5. Hip flexion is 2/5. Labs: Lab Results Component Value Date HGB 12.7 10/30/2024 HGB 12.1 08/29/2024 HGB 12.7 04/13/2023 Lab Results Component Value Date CREATININE 0.89 10/30/2024 CREATININE 0.93 04/13/2023 CREATININE 0.96 01/28/2022 No results found for: CRP No results found for: SEDRATE Lab Results Component Value Date CULTURE No growth at 1 day 06/14/2014 Imaging: Radiographs of the left hip were reviewed. Findings: Previous x-ray of the left hip is satisfactory with no evidence of fracture or loosening Assessment: 1. Aftercare following left hip joint replacement surgery Plan: Patient continuing to move in the right direction following left total hip replacement -patient reports that she is having some gait discomfort when walking long distances, as well as some discomfort through the IT band region. I will give her a script for gentle IT band stretching as well as gait training to help with some of these symptoms. - tramadol for pain as needed from pain management, continue to ice the area and elevate. - we can plan on seeing the patient back in 1 month to check on progress and discuss return back to work - call if any acute changes MEMO Yanez 12/24/24 1053 documented in this encounter [facility] 12-22-2024 Evaluation note Diagnosis Onset Date Resolution UTI (urinary tract infection) acute December 22, 2024 2:15pm [facility] Work Phone: [phone] [phone] History of Present illness Narrative* MEMO Yanez - 11/28/2024 8:40 AM EDT Orthopaedic Surgery Outpatient Visit Note Encounter Date: 11/28/2024 Patient: Barbara Garcia 1965 PCP Faustino Amin APRN-LEON CC: Chief Complaint Patient presents with Left Hip - Post-op 4 wk post op LT THR (10/31/24)- Progress check, states doing well, using a cane, pain at bursa HPI: Barbara Garcia is a 59 y.o. female here today for postop appointment concerning a left total hip replacement that was performed on 10/31/[address] Rivas. Patient reports that she has transferred to the cane and that her pain is much better than what it was. She is not in any PT currently and does report taking tramadol for pain which she gets from her baseline pain management. She is finishing up her aspirin 325 and is otherwise afebrile. Past Medical History: Past Medical History: Diagnosis Date Basal cell carcinoma 2004 & 2006 Dental disease 10/17/2024 2 permanent crowns Fibromyalgia GERD (gastroesophageal reflux disease) past history, no meds Hypothyroidism Liver hemangioma Migraine about 1-2 per month Primary osteoarthritis of left hip 10/17/2024 Seasonal allergies Shingles Sinus infection 10/17/2024 on antibiotics Wears glasses 10/17/2024 Past Surgical History: Procedure Laterality Date CARPAL TUNNEL RELEASE Left 2001 HYSTERECTOMY 2005 ONE OVARY REMOVED JOINT REPLACEMENT OOPHORECTOMY Right 2004 LEFT IS NON-WORKING REPLACEMENT TOTAL JOINT HIP ANTERIOR SUPINE INTERMUSCULAR Left 10/31/2024 Performed by Shahram Rivas MD at [facility] SURGERY [address] [facility] Medications: Current Outpatient Medications: aspirin 325 mg EC tablet, Take 1 tablet (325 mg total) by mouth in the morning and 1 tablet (325 mgtotal) before bedtime. Do all this for 35 days., Disp: 70 tablet, Rfl: 0 buPROPion SR (WELLBUTRIN SR) 150 mg 12 hr tablet, TAKE 1 TABLET(150 MG) BY MOUTH EVERY MORNING AND EVERY NIGHT AT BEDTIME, Disp: 180 tablet, Rfl: 2 kdvzeepisf-cdrsozwdvbfhu-xtrs (FIORICET, ESGIC) 50-325-40 mg per tablet, Take 1 tablet by mouth every 6 (six) hours as needed for headaches., Disp: 30 tablet, Rfl: 5 carisoprodol (SOMA) 350 mg tablet, as needed for muscle spasms., Disp: , Rfl: 2 docusate sodium (COLACE) 100 mg capsule, Take 1 capsule (100 mg total) by mouth in the morning and 1 capsule (100 mg total) before bedtime. Do all this for 30 days. While taking opioid pain medications., Disp: 60 capsule, Rfl: 0 ergocalciferol (DRISDOL) 1,250 mcg (50,000 unit) capsule, Take 1 capsule (50,000 Units total) by mouth once a week., Disp: 12 capsule, Rfl: 1 famotidine (PEPCID) 20 mg tablet, Take 1 tablet (20 mg total) by mouth in the morning and 1 tablet (20 mg total) before bedtime., Disp: 60 tablet, Rfl: 0 gabapentin (NEURONTIN) 100 mg capsule, Take 1 capsule (100 mg total) by mouth daily with breakfast.200 mg HS, Disp: , Rfl: 5 levothyroxine (SYNTHROID, LEVOTHROID) 50 MCG tablet, TAKE 1 TABLET(50 MCG) BY MOUTH IN THE MORNING,Disp: 90 tablet, Rfl: 1 loratadine (CLARITIN) 10 mg tablet, TAKE 2 TABLETS(20 MG) BY MOUTH DAILY, Disp: 180 tablet, Rfl: 1 SUMAtriptan (IMITREX) 100 mg tablet, TAKE 1 TABLET BY MOUTH AT ONSET OF SYMPTOMS MAY REPEAT IN 2 HOURS IF UNRESOLVED. DO NOT EXCEED 200 MG IN 24 HOURS, Disp: 27 tablet, Rfl: 1 Allergies and adverse reactions: Allergies Allergen Reactions Bandage [Adhesive] Other (See Comments) Redness, blistering some times Pravastatin Hives Hismanal Tachycardia Zithromax [Azithromycin] GI Disturbance heartburn Social History: Social History Socioeconomic History Marital status: Spouse name: Not on file Number of children: Not on file Years of education: Not on file Highest education level: Not on file Occupational History Not on file Tobacco Use Smoking status: Former Current packs/day: 0.25 Average packs/day: 0.3 packs/day for 47.2 years (12.1 ttl pk-yrs) Types: Cigarettes Start date: 06/06/1984 Smokeless tobacco: Never Tobacco comments: Smoked as teen Vaping Use Vaping status: Never Used Substance and Sexual Activity Alcohol use: No Drug use: No Sexual activity: Defer Other Topics Concern Not on file Social History Narrative Not on file Social Drivers of Health Financial Resource Strain: Not on file Food Insecurity: No Food Insecurity (10/19/2024) Hunger Screening Food Insecurity - Worry: Never True Food Insecurity - Inability: Never True Transportation Needs: Not on file Physical Activity: Not on file Stress: Not on file Social Connections: Not on file Interpersonal Safety: Not on file Housing Instability: Not on file Family History: Family History Problem Relation Age of Onset Heart failure Mother Heart failure Brother Cardiomyopathy Maternal Grandmother Heart failure Maternal Grandmother Breast cancer Neg Hx Anesthesia problems Neg Hx ROS: Constitutional No fever No chills Musculoskeletal Joint pain Objective: General Appearance : Well appearing Comfortable Orientation: Oriented to Person Place Time Mood and Affect: Normal Gait: Uses walker Antalgic Right Left Hip exam Internal rotation: 15 External rotation: 20 No pain with internal or external rotation of the hip Improve sensitivity down the lateral aspect of the hip. Still having some discomfort in the bursal region Surgical incision is clean dry and intact 2 small scabs - all compartments compressible Quad strength 3/5 Knee exam Extension: 0 Flexion: 120 Effusion: +1 Mild discomfort lateral portion of the knee Cardiovascular Posterior tibialis pulse is 2+ to palpation. The foot is warm to touch. Posterior tibialis pulse is 2+ to palpation. The foot is warm to touch and Dorsalis pedis pulse is 2+ to palpation. The foot is warm to touch. Sensation The superficial peroneal and tibial nerve distributions have normal sensation to light touch. The superficial peroneal and tibial nerve distributions have normal sensation to light touch Strength Hip flexion, knee extension, and ankle dorsiflexion are 5/5. Knee extension and ankle dorsiflexion are 5/5. Hip flexion is 2/5. Labs: Lab Results Component Value Date HGB 12.7 10/30/2024 HGB 12.1 08/29/2024 HGB 12.7 04/13/2023 Lab Results Component Value Date CREATININE 0.89 10/30/2024 CREATININE 0.93 04/13/2023 CREATININE 0.96 01/28/2022 No results found for: CRP No results found for: SEDRATE Lab Results Component Value Date CULTURE No growth at 1 day 06/14/2014 Imaging: Radiographs of the left hip were reviewed. Findings: Previous x-ray of the left hip is satisfactory Assessment: 1. Aftercare following left hip joint replacement surgery Plan: Patient progressing well status post left total hip replacement - continue to do exercises to work on range of motion and strengthening of this left hip, off the cane - tramadol for pain as needed, continue to ice the area and elevate. - finish up aspirin 325 b.i.d - we can see the patient back in 1 month to check on progress - call if any acute changes MEMO Yanez 11/28/24 [id number] [facility] History of Present illness Narrative* MEMO Yanez - 11/14/2024 8:20 AM EDT Orthopaedic Surgery Outpatient Visit Note Encounter Date: 11/14/2024 Patient: Barbara Garcia 1965 PCP MEMO Best CC: Chief Complaint Patient presents with Left Hip - Post-op 2wk post op LT THR 10/31/24 (1 week f/u pain and bruising in knee) imaging completed at last weeks visit, states her knee is bothering her more, using a walker today HPI: Barbara Garcia is a 59 y.o. female here today for postop appointment concerning a left total hip replacement that was performed on 10/31/[address] Rivas. Patient reports that she is continuing tohave some discomfort to the knee however she is having better function of the leg than last week. She is walking with a walker primarily and thinks that physical therapy might benefit her. Patient istaking aspirin 325 b.i.d. for DVT prophylaxis and is taking oxycodone for pain as needed. Patient was afebrile. Past Medical History: Past Medical History: Diagnosis Date Basal cell carcinoma 2005 & 2006 Dental disease 10/17/2024 2 permanent crowns Fibromyalgia GERD (gastroesophageal reflux disease) past history, no meds Hypothyroidism Liver hemangioma Migraine about 1-2 per month Primary osteoarthritis of left hip 10/17/2024 Seasonal allergies Shingles Sinus infection 10/17/2024 on antibiotics Wears glasses 10/17/2024 Past Surgical History: Procedure Laterality Date CARPAL TUNNEL RELEASE Left 2002 HYSTERECTOMY 2004 ONE OVARY REMOVED JOINT REPLACEMENT OOPHORECTOMY Right 2004 LEFT IS NON-WORKING REPLACEMENT TOTAL JOINT HIP ANTERIOR SUPINE INTERMUSCULAR Left 10/31/2024 Performed by Shahram Rivas MD at [facility]GERY [address] [facility] Medications: Current Outpatient Medications: aspirin 325 mg EC tablet, Take 1 tablet (325 mg total) by mouth in the morning and 1 tablet (325 mgtotal) before bedtime. Do all this for 35 days., Disp: 70 tablet, Rfl: 0 buPROPion SR (WELLBUTRIN SR) 150 mg 12 hr tablet, TAKE 1 TABLET(150 MG) BY MOUTH EVERY MORNING AND EVERY NIGHT AT BEDTIME, Disp: 180 tablet, Rfl: 2 noxxnbqorq-cuknnvycqavmw-xnbh (FIORICET, ESGIC) 50-325-40 mg per tablet, Take 1 tablet by mouth every 6 (six) hours as needed for headaches., Disp: 30 tablet, Rfl: 5 carisoprodol (SOMA) 350 mg tablet, as needed for muscle spasms., Disp: , Rfl: 2 docusate sodium (COLACE) 100 mg capsule, Take 1 capsule (100 mg total) by mouth in the morning and 1 capsule (100 mg total) before bedtime. Do all this for 30 days. While taking opioid pain medications., Disp: 60 capsule, Rfl: 0 ergocalciferol (DRISDOL) 1,250 mcg (50,000 unit) capsule, Take 1 capsule (50,000 Units total) by mouth once a week., Disp: 12 capsule, Rfl: 1 famotidine (PEPCID) 20 mg tablet, Take 1 tablet (20 mg total) by mouth in the morning and 1 tablet (20 mg total) before bedtime., Disp: 60 tablet, Rfl: 0 gabapentin (NEURONTIN) 100 mg capsule, Take 1 capsule (100 mg total) by mouth daily with breakfast.200 mg HS, Disp: , Rfl: 5 levothyroxine (SYNTHROID, LEVOTHROID) 50 MCG tablet, TAKE 1 TABLET(50 MCG) BY MOUTH IN THE MORNING,Disp: 90 tablet, Rfl: 1 loratadine (CLARITIN) 10 mg tablet, TAKE 2 TABLETS(20 MG) BY MOUTH DAILY, Disp: 180 tablet, Rfl: 1 oxyCODONE (ROXICODONE) 5 mg immediate release tablet, Take 1 tablet (5 mg total) by mouth every 4 (four) hours as needed for pain for up to 7 days. Max Daily Amount: 30 mg, Disp: 42 tablet, Rfl: 0 SUMAtriptan (IMITREX) 100 mg tablet, TAKE 1 TABLET BY MOUTH AT ONSET OF SYMPTOMS MAY REPEAT IN 2 HOURS IF UNRESOLVED. DO NOT EXCEED 200 MG IN 24 HOURS, Disp: 27 tablet, Rfl: 1 Allergies and adverse reactions: Allergies Allergen Reactions Bandage [Adhesive] Other (See Comments) Redness, blistering some times Pravastatin Hives Hismanal Tachycardia Zithromax [Azithromycin] GI Disturbance heartburn Social History: Social History Socioeconomic History Marital status: Spouse name: Not on file Number of children: Not on file Years of education: Not on file Highest education level: Not on file Occupational History Not on file Tobacco Use Smoking status: Former Current packs/day: 0.25 Average packs/day: 0.3 packs/day for 47.2 years (12.1 ttl pk-yrs) Types: Cigarettes Start date: 06/06/1984 Smokeless tobacco: Never Tobacco comments: Smoked as teen Vaping Use Vaping status: Never Used Substance and Sexual Activity Alcohol use: No Drug use: No Sexual activity: Defer Other Topics Concern Not on file Social History Narrative Not on file Social Drivers of Health Financial Resource Strain: Not on file Food Insecurity: No Food Insecurity (10/19/2024) Hunger Screening Food Insecurity - Worry: Never True Food Insecurity - Inability: Never True Transportation Needs: Not on file Physical Activity: Not on file Stress: Not on file Social Connections: Not on file Interpersonal Safety: Not on file Housing Instability: Not on file Family History: Family History Problem Relation Age of Onset Heart failure Mother Heart failure Brother Cardiomyopathy Maternal Grandmother Heart failure Maternal Grandmother Breast cancer Neg Hx Anesthesia problems Neg Hx ROS: Constitutional No fever No chills Musculoskeletal Joint pain Objective: General Appearance : Well appearing Comfortable Orientation: Oriented to Person Place Time Mood and Affect: Normal Gait: Uses walker Antalgic Right Left Hip exam Internal rotation: 15 External rotation: 20 No pain with internal or external rotation of the hip Some continued discomfort down the lateral aspect of the thigh with numbing and sensitivity Surgical incision is clean dry and intact, left open air, 1 suture was removed distally after cleansing with Betadine - all compartments are compressible, DP pulse 2 + No evidence of drop foot Mild bruising in the calf and knee Quad is firing Quad strength 3/5 Fox hose stockings on Knee exam Extension: 0 Flexion: 100 Effusion: +1 Some continued discomfort at the medial and lateral aspect of the knee with flexion and ambulation Cardiovascular Posterior tibialis pulse is 2+ to palpation. The foot is warm to touch. Posterior tibialis pulse is 2+ to palpation. The foot is warm to touch and Dorsalis pedis pulse is 2+ to palpation. The foot is warm to touch. Sensation The superficial peroneal and tibial nerve distributions have normal sensation to light touch. The superficial peroneal and tibial nerve distributions have normal sensation to light touch Strength Hip flexion, knee extension, and ankle dorsiflexion are 5/5. Knee extension and ankle dorsiflexion are 5/5. Hip flexion is 2/5. Labs: Lab Results Component Value Date HGB 12.7 10/30/2024 HGB 12.1 08/29/2024 HGB 12.7 04/13/2023 Lab Results Component Value Date CREATININE 0.89 10/30/2024 CREATININE 0.93 04/13/2023 CREATININE 0.96 01/28/2022 No results found for: CRP No results found for: SEDRATE Lab Results Component Value Date CULTURE No growth at 1 day 06/14/2014 Imaging: Radiographs of the left hip were reviewed. Findings: Previous x-ray of the left hip shows satisfactory left total hip replacement Assessment: 1. Aftercare following left hip joint replacement surgery Plan: Patient continuing to progress following left total hip replacement, some slight improvements and knee and hip discomfort - continue to do exercises to work on range of motion and strengthening of this left hip - oxycodone for pain as needed, continue to ice the area and elevate. - aspirin 325 b.I.d. for DVT prophylaxis - I did provide continued script for in-home physical therapy - plan will be to see the patient back in 2 weeks to check on how things are going - call if any acute changes MEMO Yanez 11/14/24 [id number] documented [facility] this encounterL[facility]Equ[facility] [id number] History of Present illness Narrative* Augie Schultz, MEMO - 11/07/2024 1:00 PM EDT Orthopaedic Surgery Outpatient Visit Note Encounter Date: 11/07/2024 Patient: Barbara Garcia 1965 PCP MEMO Best CC: Chief Complaint Patient presents with Left Hip - Post-op 1wk LT THR 10/31/24, pain/bruising/swelling in the LT knee, no xray per [facility] Left Knee - Pain pain HPI: Barbara Garcia is a 59 y.o. female Here today for postop pain and swelling following a left total hip replacement that was performed on 10/31/[address] Rivas. Patient reports she has had extreme sensitivity down the lateral portion of the leg and has been having a lot of difficulty with puttingweight through the knee. She reports that the tenderness is primarily on the lateral aspect of her knee when she puts weight through it and it does radiate up the leg. She reports her pain is mildly controlled by [place] and she is taking aspirin 325 b.I.d. for DVT prophylaxis. She is walking with a walker primarily in his participating in some in-home physical therapy. Past Medical History: Past Medical History: Diagnosis Date Basal cell carcinoma 2004 & 2006 Dental disease 10/17/2024 2 permanent crowns Fibromyalgia GERD (gastroesophageal reflux disease) past history, no meds Hypothyroidism Liver hemangioma Migraine about 1-2 per month Primary osteoarthritis of left hip 10/17/2024 Seasonal allergies Sinus infection 10/17/2024 on antibiotics Wears glasses 10/17/2024 Past Surgical History: Procedure Laterality Date CARPAL TUNNEL RELEASE Left 2002 HYSTERECTOMY 2005 ONE OVARY REMOVED OOPHORECTOMY Right 2005 LEFT IS NON-WORKING REPLACEMENT TOTAL JOINT HIP ANTERIOR SUPINE INTERMUSCULAR Left 10/31/2024 Performed by Shahram Rivas MD at [facility] OUT[facility] SURGERY [address] [facility] Medications: Current Outpatient Medications: aspirin 325 mg EC tablet, Take 1 tablet (325 mg total) by mouth in the morning and 1 tablet (325 mgtotal) before bedtime. Do all this for 35 days., Disp: 70 tablet, Rfl: 0 buPROPion SR (WELLBUTRIN SR) 150 mg 12 hr tablet, TAKE 1 TABLET(150 MG) BY MOUTH EVERY MORNING AND EVERY NIGHT AT BEDTIME, Disp: 180 tablet, Rfl: 2 nczfiwhbrn-fwdutozuzulxw-exby (FIORICET, ESGIC) 50-325-40 mg per tablet, Take 1 tablet by mouth every 6 (six) hours as needed for headaches., Disp: 30 tablet, Rfl: 5 carisoprodol (SOMA) 350 mg tablet, as needed for muscle spasms., Disp: , Rfl: 2 docusate sodium (COLACE) 100 mg capsule, Take 1 capsule (100 mg total) by mouth in the morning and 1 capsule (100 mg total) before bedtime. Do all this for 30 days. While taking opioid pain medications., Disp: 60 capsule, Rfl: 0 ergocalciferol (DRISDOL) 1,250 mcg (50,000 unit) capsule, Take 1 capsule (50,000 Units total) by mouth once a week., Disp: 12 capsule, Rfl: 1 famotidine (PEPCID) 20 mg tablet, Take 1 tablet (20 mg total) by mouth in the morning and 1 tablet (20 mg total) before bedtime., Disp: 60 tablet, Rfl: 0 gabapentin (NEURONTIN) 100 mg capsule, Take 1 capsule (100 mg total) by mouth daily with breakfast.200 mg HS, Disp: , Rfl: 5 HYDROcodone-acetaminophen (NORCO) 5-325 mg per tablet, Take 1-2 tablets by mouth every 6 (six) hours as needed for pain for up to 7 days. Max Daily Amount: 8 tablets, Disp: 42 tablet, Rfl: 0 levothyroxine (SYNTHROID, LEVOTHROID) 50 MCG tablet, TAKE 1 TABLET(50 MCG) BY MOUTH IN THE MORNING,Disp: 90 tablet, Rfl: 1 loratadine (CLARITIN) 10 mg tablet, TAKE 2 TABLETS(20 MG) BY MOUTH DAILY, Disp: 180 tablet, Rfl: 1 SUMAtriptan (IMITREX) 100 mg tablet, TAKE 1 TABLET BY MOUTH AT ONSET OF SYMPTOMS MAY REPEAT IN 2 HOURS IF UNRESOLVED. DO NOT EXCEED 200 MG IN 24 HOURS, Disp: 27 tablet, Rfl: 1 Allergies and adverse reactions: Allergies Allergen Reactions Bandage [Adhesive] Other (See Comments) Redness, blistering some times Pravastatin Hives Hismanal Tachycardia Zithromax [Azithromycin] GI Disturbance heartburn Social History: Social History Socioeconomic History Marital status: Spouse name: Not on file Number of children: Not on file Years of education: Not on file Highest education level: Not on file Occupational History Not on file Tobacco Use Smoking status: Former Current packs/day: 0.25 Average packs/day: 0.3 packs/day for 40.4 years (10.1 ttl pk-yrs) Types: Cigarettes Start date: 1984 Smokeless tobacco: Never Tobacco comments: Smoked as teen Vaping Use Vaping status: Never Used Substance and Sexual Activity Alcohol use: No Drug use: No Sexual activity: Defer Other Topics Concern Not on file Social History Narrative Not on file Social Drivers of Health Financial Resource Strain: Not on file Food Insecurity: No Food Insecurity (10/19/2024) Hunger Screening Food Insecurity - Worry: Never True Food Insecurity - Inability: Never True Transportation Needs: Not on file Physical Activity: Not on file Stress: Not on file Social Connections: Not on file Interpersonal Safety: Not on file Housing Instability: Not on file Family History: Family History Problem Relation Age of Onset Heart failure Mother Heart failure Brother Cardiomyopathy Maternal Grandmother Heart failure Maternal Grandmother Breast cancer Neg Hx Anesthesia problems Neg Hx ROS: Constitutional No fever No chills Musculoskeletal Joint pain Objective: General Appearance : Well appearing Comfortable Orientation: Oriented to Person Place Time Mood and Affect: Normal Gait: Uses walker Antalgic Right Left Hip exam Internal rotation: 15 External rotation: 20 No pain with internal or external rotation of the hip Pain down the lateral aspect of the hip and tenderness reported on lateral aspect of the thigh. Sensitivity and numbness Surgical dressing Is clean dry and intact in place - all compartments are compressible, DP pulse 2 + No evidence of drop foot Mild bruising noted through the thigh and posterior knee Quad is firing Quad strength 2/5 Fox hose stockings on Knee exam Extension: 0 Flexion: 85 Effusion: +1 Pain at the lateral side of the knee with pressure Cardiovascular Posterior tibialis pulse is 2+ to palpation. The foot is warm to touch. Posterior tibialis pulse is 2+ to palpation. The foot is warm to touch and Dorsalis pedis pulse is 2+ to palpation. The foot is warm to touch. Sensation The superficial peroneal and tibial nerve distributions have normal sensation to light touch. The superficial peroneal and tibial nerve distributions have normal sensation to light touch Strength Hip flexion, knee extension, and ankle dorsiflexion are 5/5. Knee extension and ankle dorsiflexion are 5/5. Hip flexion is 2/5. Labs: Lab Results Component Value Date HGB 12.7 10/30/2024 HGB 12.1 08/29/2024 HGB 12.7 04/13/2023 Lab Results Component Value Date CREATININE 0.89 10/30/2024 CREATININE 0.93 04/13/2023 CREATININE 0.96 01/28/2022 No results found for: CRP No results found for: SEDRATE Lab Results Component Value Date CULTURE No growth at 1 day 06/14/2014 Imaging: Radiographs of the left hip were reviewed. Findings: X-ray of the left hip shows satisfactory left total hip replacement with no evidence of fracture or loosening Assessment: 1. Aftercare following left hip joint replacement surgery Plan: Patient here for a postop discomfort through the left hip and knee following a left total hip replacement exacerbated specifically with weight-bearing. - x-ray of the left hip appears satisfactory with no evidence of fracture or loosening - discussed with the patient that I do expect some lateral numbness and sensitivity, as well as some discomfort through the knee in the immediate postop. Continue to ice and elevate the area. - Riverdale is working mildly for pain, I did switch her to oxycodone. Patient can alternate Tylenol inbetween the oxycodone. Continue to compress and ice the area. - aspirin 325 b.I.d. for DVT prophylaxis, Fox hose stockings - we will plan on seeing the patient back next week to recheck on how things are going - call if any acute changes MEMO Yanez 11/07/24 1400 documented in this encounterMer[facility]06-04-2025 Miscellaneous Notes* Telephone Encounter - Loida Castillo CMA - 11/07/2024 8:15 AM EDT Pt had a LT THR on 10/31/24. She states for the past 2 days that she has been experiencing pain, swelling, and bruising in her LT knee. She is taking her aspirin and Riverdale as prescribed. I advised her on icing and proper elevation technique as she has only been in a recliner since surgery. She has been wearing her compression stockings but the swelling isn't contained in them with the LT leg. I told her she can get some geovani wraps to substitute for the stockings. I told her to send a picture through her MyChart so we can advise what is going on. She verbalized understanding with all of the above. * Telephone Encounter - MEMO Yanez - 11/07/2024 8:15 AM EDT Lets see her today at 1 if able * Telephone Encounter - Loida Castillo CMA - 11/07/2024 8:15 AM EDT Spoke with patient and she is coming in at 1 documented in this encounterMer[facility]06-04-2025 Telephone encounter Note* Telephone Encounter - Loida Castillo CMA - 11/07/2024 8:15 AM EDT Pt had a LT THR on 10/31/24. She states for the past 2 days that she has been experiencing pain, swelling, and bruising in her LT knee. She is taking her aspirin and Riverdale as prescribed. I advised her on icing and proper elevation technique as she has only been in a recliner since surgery. She has been wearing her compression stockings but the swelling isn't contained in them with the LT leg. I told her she can get some geovani wraps to substitute for the stockings. I told her to send a picture through her MyChart so we can advise what is going on. She verbalized understanding with all of the above. [facility]-04-[facility] Telephone encounter Note* Telephone Encounter - MEMO Yanez - 11/07/2024 8:15 AM EDT Lets see her today at 1 if able [facility] Work Phone: 1(934) 247-959106-04-2025 Telephone encounter Note* Telephone Encounter - Loida Castillo CMA - 11/07/2024 8:15 AM EDT Spoke with patient and she is coming in [facility] [address] [id number] Miscellaneous Notes* Telephone Encounter - Landy Orosco CMA - 10/24/2024 11:14 AM EDT Patient is asking when the echocardiogram needs to be completed and can/should we repeat the EKG? Please advise * Telephone Encounter - MEMO Best - 10/24/2024 11:14 AM EDT If she cannot get it done before surgery it will have to get done after, and there is no point in repeating ekg * Telephone Encounter - Landy Orosco CMA - 10/24/2024 11:14 AM EDT Patient notified documented in this encounterLake[facility]05-21-2025 Telephone encounter Note* Telephone Encounter - Landy Orosco CMA - 10/24/2024 11:14 AM EDT Patient is asking when the echocardiogram needs to be completed and can/should we repeat the EKG? Please advise [facility]-21-[facility] Telephone encounter Note* Telephone Encounter - MEMO Best - 10/24/2024 11:14 AM EDT If she cannot get it done before surgery it will have to get done after, and there is no point in repeating ekg [facility]05-21-2025 Telephone encounter Note* Telephone Encounter - Landy Orosco CMA - 10/24/2024 11:14 AM EDT Patient notified [facility]05-16-[facility] History of Present illness Narrative* MEMO Best - 10/19/2024 8:00 AM EDT Images from the original note were not included. [id number] [facility] [id number] SUBJECTIVE: Patient ID: Barbara Garcia is a 58 y.o. female. Patient presents to the office for pre operative clearance for left total hip. Has history of hypothyroidism, fibromyalgia, gerd. Due for her routine wellness labs. Needs EKG. Had issues with surgeryin the past with bleeding- did see hematology and the work up was negative. Pre-op Exam Associated symptoms include arthralgias. Pertinent negatives include no abdominal pain, chest pain,congestion, coughing, fatigue, fever, joint swelling, nausea, neck pain, numbness, rash, sore throat, vomiting or weakness. The following portions of the patient's history were reviewed and updated as appropriate: allergies, current medications, past family history, past medical history, past social history, past surgicalhistory and problem list. REVIEW OF SYSTEMS: Review of Systems Constitutional: Negative for fatigue, fever and unexpected weight change. HENT: Negative for congestion, ear pain, sinus pressure, sinus pain and sore throat. Eyes: Negative for photophobia, pain, discharge and visual disturbance. Respiratory: Negative for cough and shortness of breath. Cardiovascular: Negative for chest pain, palpitations and leg swelling. Gastrointestinal: Negative for abdominal pain, diarrhea, nausea and vomiting. Endocrine: Negative for polydipsia, polyphagia and polyuria. Genitourinary: Negative for difficulty urinating, frequency, hematuria and urgency. Musculoskeletal: Positive for arthralgias. Negative for gait problem, joint swelling and neck pain. Left hip pain Skin: Negative for pallor and rash. Neurological: Negative for dizziness, weakness, light-headedness and numbness. Psychiatric/Behavioral: Negative for sleep disturbance. The patient is not nervous/anxious. PHYSICAL EXAMINATION: Vitals: 10/19/24 0802 BP: 120/70 Pulse: 88 Resp: 16 SpO2: 97% Weight: 54.4 kg (120 lb) Physical Exam Constitutional: Appearance: She is well-developed. HENT: Head: Normocephalic and atraumatic. Right Ear: External ear normal. Left Ear: External ear normal. Eyes: Conjunctiva/sclera: Conjunctivae normal. Pupils: Pupils are equal, round, and reactive to light. Cardiovascular: Rate and Rhythm: Normal rate and regular rhythm. Heart sounds: Normal heart sounds. Pulmonary: Effort: Pulmonary effort is normal. Breath sounds: Normal breath sounds. Musculoskeletal: Cervical back: Normal range of motion. Skin: General: Skin is warm and dry. Neurological: Mental Status: She is alert and oriented to person, place, and time. Psychiatric: Mood and Affect: Mood normal. ASSESSMENT/PLAN: Barbara was seen today for pre-op exam. Diagnoses and all orders for this visit: Pre-operative clearance Acquired hypothyroidism Fibromyalgia Primary osteoarthritis of left hip Tension headache Gastroesophageal reflux disease without esophagitis Hypothyroidism, unspecified type Follow-up: She is going to get wellness labs done EKG Will call with results Poct ua-negative Clearance pending EKG and wellness labs MEMO Best 10/22/24 0617 documented in this encounterMer[facility]05-14-2025 History and physical note* MEMO Chisholm - 10/17/2024 12:45 PM EDT PRE-ADMISSION TESTING HISTORY AND PHYSICAL EXAM DATE: 10/17/24 PCP: MEMO Best CHIEF COMPLAINT: left hip pain HISTORY OF PRESENT ILLNESS: Barbara Garcia, a 58 y.o. White or female, presents to [facility] for a pre- surgical H&P. The patient reports left hip pain for years which has progressively worsened over time. Pain is in thelateral hip and groin. Standing and walking aggravate the pain. She has been through PT in the pastand is still doing home exercises. She has had steroid injections, the last in March 2024 which provided relief for less than 2 weeks. She denies previous left hip surgery. She denies pain in the right hip. She is on tramadol for pain and also takes Tylenol as needed. Left hip x-ray on 07/05/2024demonstrates moderate to severe left hip osteoarthritis. She is on Augmentin currently for sinus inf ection which is improving. She denies anesthesia problems. PAST MEDICAL HISTORY: Past Medical History: Diagnosis Date Basal cell carcinoma 2004 & 2006 Dental disease 10/17/2024 2 permanent crowns Fibromyalgia GERD (gastroesophageal reflux disease) past history, no meds Hypothyroidism Liver hemangioma Migraine about 1-2 per month Primary osteoarthritis of left hip 10/17/2024 Seasonal allergies Sinusitis, chronic Wears glasses 10/17/2024 PAST SURGICAL HISTORY: Past Surgical History: Procedure Laterality Date CARPAL TUNNEL RELEASE Left 2001 HYSTERECTOMY 2004 ONE OVARY REMOVED OOPHORECTOMY Right 2004 LEFT IS NON-WORKING THORACIC OUTLET SURGERY [address] [facility] FAMILY HISTORY: Family History Problem Relation Age of Onset Heart failure Mother Heart failure Brother Cardiomyopathy Maternal Grandmother Heart failure Maternal Grandmother Breast cancer Neg Hx Anesthesia problems Neg Hx SOCIAL HISTORY: The patient reports no history of alcohol use. She reports that she has quit smoking. She has never used smokeless tobacco. She reports no history of drug use. ALLERGIES: Allergies Allergen Reactions Pravastatin Hives Hismanal Tachycardia Zithromax [Azithromycin] GI Disturbance heartburn MEDICATIONS: Current Outpatient Medications: amoxicillin-pot clavulanate (AUGMENTIN) 875-125 mg per tablet, Take 1 tablet by mouth in the morning and 1 tablet before bedtime. Do all this for 10 days. (Patient taking differently: Take 1 tablet by mouth in the morning and 1 tablet before bedtime. Sinus infection.), Disp: 20 tablet, Rfl: 0 BIOTIN ORAL, Take by mouth in the morning., Disp: , Rfl: buPROPion SR (WELLBUTRIN SR) 150 mg 12 hr tablet, TAKE 1 TABLET(150 MG) BY MOUTH EVERY MORNING AND EVERY NIGHT AT BEDTIME, Disp: 180 tablet, Rfl: 2 hebpdyjwqr-ypfckwqdazfzw-khgs (FIORICET, ESGIC) 50-325-40 mg per tablet, Take 1 tablet by mouth every 6 (six) hours as needed for headaches., Disp: 30 tablet, Rfl: 5 carisoprodol (SOMA) 350 mg tablet, as needed for muscle spasms., Disp: , Rfl: 2 estradioL (VIVELLE-DOT) 0.05 mg/24 hr, APPLY 1 PATCH TOPICALLY TO THE SKIN 2 TIMES A WEEK, Disp: 24patch, Rfl: 3 gabapentin (NEURONTIN) 100 mg capsule, Take 1 capsule (100 mg total) by mouth daily with breakfast.200 mg HS, Disp: , Rfl: 5 levothyroxine (SYNTHROID, LEVOTHROID) 50 MCG tablet, TAKE 1 TABLET(50 MCG) BY MOUTH IN THE MORNING,Disp: 90 tablet, Rfl: 1 loratadine (CLARITIN) 10 mg tablet, TAKE 2 TABLETS(20 MG) BY MOUTH DAILY (Patient taking differently: Take 1 tablet (10 mg total) by mouth in the morning and 1 tablet (10 mg total) before bedtime.), Disp: 180 tablet, Rfl: 1 SUMAtriptan (IMITREX) 100 mg tablet, TAKE 1 TABLET BY MOUTH AT ONSET OF SYMPTOMS MAY REPEAT IN 2 HOURS IF UNRESOLVED. DO NOT EXCEED 200 MG IN 24 HOURS, Disp: 27 tablet, Rfl: 1 traMADol (ULTRAM) 50 mg tablet, , Disp: , Rfl: 2 REVIEW OF SYSTEMS: Review of Systems Constitutional: Negative for fever and chills. HENT: Negative for congestion, rhinorrhea and sore throat. Eyes: Positive for visual disturbance (glasses). Negative for redness. Respiratory: Negative for cough and shortness of breath. Cardiovascular: Negative for chest pain and palpitations. Gastrointestinal: Negative for abdominal pain, diarrhea and constipation. Genitourinary: Negative for dysuria, hematuria and difficulty urinating. Musculoskeletal: Positive for arthralgias (left hip). Allergic/Immunologic: Positive for environmental allergies. Neurological: Positive for headaches (migraines 1-2/month). Negative for numbness and dysesthesia. VITAL SIGNS: BP 133/82 Pulse 77 Temp 36.7 C (98 F) (Temporal) Resp 16 Ht 160 cm (5' 3 ) Wt 54.7 kg (120 lb 9.5 oz) SpO2 99% BMI 21.36 kg/m PHYSICAL EXAM: Physical Exam Vitals reviewed. Constitutional: Appearance: Normal appearance. HENT: Head: Normocephalic. Eyes: Extraocular Movements: Extraocular movements intact. Pupils: Pupils are equal, round, and reactive to light. Cardiovascular: Rate and Rhythm: Normal rate and regular rhythm. Heart sounds: Normal heart sounds. Pulmonary: Effort: Pulmonary effort is normal. Breath sounds: Normal breath sounds. Abdominal: General: Bowel sounds are normal. Palpations: Abdomen is soft. Musculoskeletal: Left hip: Tenderness present. Decreased range of motion. Skin: General: Skin is warm and dry. Capillary Refill: Capillary refill takes less than 2 seconds. Neurological: General: No focal deficit present. Mental Status: She is alert and oriented to person, place, and time. Psychiatric: Mood and Affect: Mood normal. Behavior: Behavior normal. PERTINENT TESTING AVAILABLE IN [facility] (WITHIN THE PAST 2 YEARS): EKG: No results found. Echo: No results found. Stress test: No results found. Holter: No results found. Cardiac catheterization: No results found. Carotids: No results found. Pulmonary function testing: No results found. RECENT LABS: Lab Results Component Value Date WBC 5.3 08/29/2024 HGB 12.1 08/29/2024 HCT 35.4 08/29/2024 PLT 212 08/29/2024 SODIUM 139 04/13/2023 K 3.7 04/13/2023 CL 103 04/13/2023 CO2 30 04/13/2023 CALCIUM 9.6 04/13/2023 ALKPHOS 57 04/13/2023 ALBUMIN 4.5 04/13/2023 GLU 84 04/13/2023 HGBA1C 5.4 08/29/2024 ALT 14 04/13/2023 AST 16 04/13/2023 CREATININE 0.93 04/13/2023 BUN 11 04/13/2023 EGFR 72 04/13/2023 *Please note that labs listed above are the most recent lab values available in [facility] at the time ofthe appointment. ASSESSMENT / DIAGNOSIS: Primary osteoarthritis of left hip PLAN: Barbara Garcia is scheduled for REPLACEMENT TOTAL JOINT HIP ANTERIOR SUPINE INTERMUSCULAR LEFT withDrDelia Gehling on October 31, 2024. MEMO Chisholm 10/17/24 1336 [facility]05-14-[facility] History and physical note* MEMO Chisholm - 10/17/2024 12:45 PM EDT PRE-ADMISSION TESTING HISTORY AND PHYSICAL EXAM DATE: 10/17/24 PCP: MEMO Best CHIEF COMPLAINT: left hip pain HISTORY OF PRESENT ILLNESS: Barbara Garcia, a 58 y.o. White or female, presents to [facility] for a pre- surgical H&P. The patient reports left hip pain for years which has progressively worsened over time. Pain is in thelateral hip and groin. Standing and walking aggravate the pain. She has been through PT in the pastand is still doing home exercises. She has had steroid injections, the last in March 2024 which provided relief for less than 2 weeks. She denies previous left hip surgery. She denies pain in the right hip. She is on tramadol for pain and also takes Tylenol as needed. Left hip x-ray on 07/05/2024demonstrates moderate to severe left hip osteoarthritis. She is on Augmentin currently for sinus inf ection which is improving. She denies anesthesia problems. PAST MEDICAL HISTORY: Past Medical History: Diagnosis Date Basal cell carcinoma 2004 & 2006 Dental disease 10/17/2024 2 permanent crowns Fibromyalgia GERD (gastroesophageal reflux disease) past history, no meds Hypothyroidism Liver hemangioma Migraine about 1-2 per month Primary osteoarthritis of left hip 10/17/2024 Seasonal allergies Sinusitis, chronic Wears glasses 10/17/2024 PAST SURGICAL HISTORY: Past Surgical History: Procedure Laterality Date CARPAL TUNNEL RELEASE Left 2002 HYSTERECTOMY 2005 ONE OVARY REMOVED OOPHORECTOMY Right 2004 LEFT IS NON-WORKING THORACIC OUTLET SURGERY 2003 4 ribs removed [facility] FAMILY HISTORY: Family History Problem Relation Age of Onset Heart failure Mother Heart failure Brother Cardiomyopathy Maternal Grandmother Heart failure Maternal Grandmother Breast cancer Neg Hx Anesthesia problems Neg Hx SOCIAL HISTORY: The patient reports no history of alcohol use. She reports that she has quit smoking. She has never used smokeless tobacco. She reports no history of drug use. ALLERGIES: Allergies Allergen Reactions Pravastatin Hives Hismanal Tachycardia Zithromax [Azithromycin] GI Disturbance heartburn MEDICATIONS: Current Outpatient Medications: amoxicillin-pot clavulanate (AUGMENTIN) 875-125 mg per tablet, Take 1 tablet by mouth in the morning and 1 tablet before bedtime. Do all this for 10 days. (Patient taking differently: Take 1 tablet by mouth in the morning and 1 tablet before bedtime. Sinus infection.), Disp: 20 tablet, Rfl: 0 BIOTIN ORAL, Take by mouth in the morning., Disp: , Rfl: buPROPion SR (WELLBUTRIN SR) 150 mg 12 hr tablet, TAKE 1 TABLET(150 MG) BY MOUTH EVERY MORNING AND EVERY NIGHT AT BEDTIME, Disp: 180 tablet, Rfl: 2 vwfkhkovqg-lvegerzyzgbmh-rljo (FIORICET, ESGIC) 50-325-40 mg per tablet, Take 1 tablet by mouth every 6 (six) hours as needed for headaches., Disp: 30 tablet, Rfl: 5 carisoprodol (SOMA) 350 mg tablet, as needed for muscle spasms., Disp: , Rfl: 2 estradioL (VIVELLE-DOT) 0.05 mg/24 hr, APPLY 1 PATCH TOPICALLY TO THE SKIN 2 TIMES A WEEK, Disp: 24patch, Rfl: 3 gabapentin (NEURONTIN) 100 mg capsule, Take 1 capsule (100 mg total) by mouth daily with breakfast.200 mg HS, Disp: , Rfl: 5 levothyroxine (SYNTHROID, LEVOTHROID) 50 MCG tablet, TAKE 1 TABLET(50 MCG) BY MOUTH IN THE MORNING,Disp: 90 tablet, Rfl: 1 loratadine (CLARITIN) 10 mg tablet, TAKE 2 TABLETS(20 MG) BY MOUTH DAILY (Patient taking differently: Take 1 tablet (10 mg total) by mouth in the morning and 1 tablet (10 mg total) before bedtime.), Disp: 180 tablet, Rfl: 1 SUMAtriptan (IMITREX) 100 mg tablet, TAKE 1 TABLET BY MOUTH AT ONSET OF SYMPTOMS MAY REPEAT IN 2 HOURS IF UNRESOLVED. DO NOT EXCEED 200 MG IN 24 HOURS, Disp: 27 tablet, Rfl: 1 traMADol (ULTRAM) 50 mg tablet, , Disp: , Rfl: 2 REVIEW OF SYSTEMS: Review of Systems Constitutional: Negative for fever and chills. HENT: Negative for congestion, rhinorrhea and sore throat. Eyes: Positive for visual disturbance (glasses). Negative for redness. Respiratory: Negative for cough and shortness of breath. Cardiovascular: Negative for chest pain and palpitations. Gastrointestinal: Negative for abdominal pain, diarrhea and constipation. Genitourinary: Negative for dysuria, hematuria and difficulty urinating. Musculoskeletal: Positive for arthralgias (left hip). Allergic/Immunologic: Positive for environmental allergies. Neurological: Positive for headaches (migraines 1-2/month). Negative for numbness and dysesthesia. VITAL SIGNS: BP 133/82 Pulse 77 Temp 36.7 C (98 F) (Temporal) Resp 16 Ht 160 cm (5' 3 ) Wt 54.7 kg (120 lb 9.5 oz) SpO2 99% BMI 21.36 kg/m PHYSICAL EXAM: Physical Exam Vitals reviewed. Constitutional: Appearance: Normal appearance. HENT: Head: Normocephalic. Eyes: Extraocular Movements: Extraocular movements intact. Pupils: Pupils are equal, round, and reactive to light. Cardiovascular: Rate and Rhythm: Normal rate and regular rhythm. Heart sounds: Normal heart sounds. Pulmonary: Effort: Pulmonary effort is normal. Breath sounds: Normal breath sounds. Abdominal: General: Bowel sounds are normal. Palpations: Abdomen is soft. Musculoskeletal: Left hip: Tenderness present. Decreased range of motion. Skin: General: Skin is warm and dry. Capillary Refill: Capillary refill takes less than 2 seconds. Neurological: General: No focal deficit present. Mental Status: She is alert and oriented to person, place, and time. Psychiatric: Mood and Affect: Mood normal. Behavior: Behavior normal. PERTINENT TESTING AVAILABLE IN [facility] (WITHIN THE PAST 2 YEARS): EKG: No results found. Echo: No results found. Stress test: No results found. Holter: No results found. Cardiac catheterization: No results found. Carotids: No results found. Pulmonary function testing: No results found. RECENT LABS: Lab Results Component Value Date WBC 5.3 08/29/2024 HGB 12.1 08/29/2024 HCT 35.4 08/29/2024 PLT 212 08/29/2024 SODIUM 139 04/13/2023 K 3.7 04/13/2023 CL 103 04/13/2023 CO2 30 04/13/2023 CALCIUM 9.6 04/13/2023 ALKPHOS 57 04/13/2023 ALBUMIN 4.5 04/13/2023 GLU 84 04/13/2023 HGBA1C 5.4 08/29/2024 ALT 14 04/13/2023 AST 16 04/13/2023 CREATININE 0.93 04/13/2023 BUN 11 04/13/2023 EGFR 72 04/13/2023 *Please note that labs listed above are the most recent lab values available in [facility] at the time ofthe appointment. ASSESSMENT / DIAGNOSIS: Primary osteoarthritis of left hip PLAN: Barbara Garcia is scheduled for REPLACEMENT TOTAL JOINT HIP ANTERIOR SUPINE INTERMUSCULAR LEFT withDr. Joseing on October 31, 2024. MEMO Chisholm 10/17/24 1336 documented in this encounterLakeHealth TriPoint Medical CenterEcologic Brands [facility] [id number] Instructions* Patient Instructions* Ibis Suarez RN - 10/17/2024 12:45 PM EDT Images from the original note were not included. Your surgery/procedure is scheduled at [facility] on 10-31-24at 8:30 am Tentative arrival time 5:30 am You will receive a phone call from [facility] the day beforeyour surgery to verify your arrival time. [address] [place] [address]. Rosalind in Entrance D. Report to the registration desk in the main lobby. If you have any questions prior to surgery, you may call Pre-Admission Clinic at [phone] between 7:30 am and 4:30 pm Tuesday through Tuesday. If you have any concerns the morning of surgery, please call the Pre-op Department at [phone]. Notify your SURGEON if you develop any illness such as a cold, cough, fever, sore throat, vomiting or are hospitalized between now and your surgery. Medication Instructions (Do not stop your medications without consulting the prescribing physician). Take the following medications the morning of surgery with a sip of water: levothyroxine, gabapentin, loratadine, bupropion Diabetic or Weight loss medications: na Take inhalers as prescribed the morning of surgery. Due to the risk associated with these medications. If these medications are not held per instruction below, your surgery is at an increased risk for cancellation (See instructions above). SGLT2 Medications- Hold 3 days prior to surgery: Jardiance, Empagliflozin, Farxiga, Dapagliflozin, Invokana, Canagliflozin, Trijardy, Synjardy GLP-1 Medications (Injection or Pill)- If taken daily hold day of surgery. If taken weekly, hold 1 week prior to surgery: Adlyxin, Byetta, Bydureon, Ozempic, Rybelsus,Trulicity, Victoza, Wegovy, Lixisenatide, Exenatide, Semaglutide, Dulaglutide, Liraglutide GIP/GLP-1(Injection or Pill)- If taken daily hold day of surgery. If taken weekly, hold 1 week prior to surgery: Mounjaro . Blood thinners: Please contact your prescribing physician regarding a stop/hold date for these medications. Medications such as Coumadin, Heparin, Aspirin, Plavix, Eliquis, Pradaxa Diabetics: If you take insulin, contact your prescribing doctor for instructions on how to manage this the night before and the morning of surgery. Non-steriodal Anti-Inflammatory Drugs (NSAIDS)- Hold 3 days prior to surgery unless otherwise directed by your surgeon. Vitamins/Herbal Products: You may continue to take your prescribed vitamins such as potassium, iron, vitamin B, vitamin C, or multivitamin unless specifically instructed by your surgeon to hold. STOPtaking all herbal products/teas one week prior to your surgery. Marijuana: Stop marijuana 72 hours prior to surgery, stop CBD oil 48 hours prior to surgery. What do I do the day of Surgery? Age 2 through adult - Stop all solids by midnight, You may have clear liquids up to 2 hours before surgery, unless otherwise instructed by your surgeon. Clear liquids are: water, sports drinks such as Gatorade or G2, or apple juice. You may NOT have: tube feedings, dairy products, alcoholic beverages, orange juice, or any liquids with solids or pulp in it. You may brush your teeth the morning of surgery. Wear your dentures and partial plates to the hospital (no adhesive). Do not use lotions, creams, powders, perfume, make up, cologne or after-shaves day of surgery. Remove ALL jewelry including wedding rings, body piercings (including dermal piercings),hair extensions that contain metal, nail belarusian, make-up, and contact lens. What do I need to do to prepare for surgery? If you will be going home the same day as your surgery, arrange for an adult over [address] Riding in a bus or taxi by yourself is not permitted. You should not smoke or drink alcohol 24 hours before your surgery. Alcohol thins the blood and may cause bleeding problems during surgery. Smoking increases the risk of breathing problems after surgery. It also increases your risk for infection, and may delay healing. Shower the night the before with an antibacterial soap. If applicable, use the CHG (chlorhexidine gluconate) wipes. Place clean linens on your bed after showering and put on freshly laundered nightclothes. Do not allow your pets in your bed. If any of these instructions conflict with those you received from the surgeon, please seek clarification from your surgeon's office. What should I bring to the hospital? Eyeglass or contact lens case. If you will be spending the night, please bring personal care items and leave them in the car untilyou are taken to your room after surgery. Leave ALL valuables at home. DEEP BREATHING EXERCISES This exercise helps promote good air exchange and helps to prevent pneumonia after surgery. Breathe in slowly and deeply through the nose. Hold your breath for a few seconds and then exhale slowly through the mouth. Repeat this three times and then cough.Coughing helps to clear your lungs. If you have had a surgery with an incision into your abdomen or chest, press gently against your incision with a pillow or a folded blanket when you cough. Please be aware - it may not be casey to cough following some types of surgeries involving the eyes,ears, sinuses and throat. Always follow your doctor's instructions. LEG EXERCISE These exercises help promote good circulation and help to prevent blood clots after surgery. Point your toes to the ceiling and then point them to the wall. Do this slowly about 15-20 times. You may also move your feet in circles. Do the exercise that is most comfortable for you. If you have had surgery involving your shoulder or arm, we recommend you move your fingers. PRACTICING We ask that you begin practicing these exercises before your surgery. After surgery try to do both exercises at least every 2 hours during the day and early evening. Surgical Site Infection Prevention What is a Surgical Site Infection (SSI)? Infection can happen to the area of the body where surgery is done. This is called a surgical site infection (SSI). A SSI does not happen very often. What are some of the things that hospitals are doing to prevent SSIs? Soap and water or alcohol hand rub are used before and after caring for each patient. Special soap is used to clean surgery workers hands and arms just before the surgery. Masks, gowns, gloves and hair covers are worn during the surgery to keep the area clean. Hair in the surgery area may be removed with clippers (not razors). A special soap that kills germs is used to clean the skin at the surgery site. Antibiotics may be given before the surgery starts. What can you do to prevent SSIs? Before surgery: You may be asked to shower or bathe with a special soap that kills germs the night before and the day of surgery. Use the soap as you were told. Place clean sheets on your bed the night before surgery and do not allow your pets in your bed. If you smoke or vape, stop or cut down. This creates a stress response in your body that increases inflammation, constricts blood vessels and deprives your tissues of oxygen. After surgery, this stress response disrupts the travel of oxygen, nutrients, and blood to your surgical site, interfering with the wound healing process. It also decreases the ability of your cells to fight infection. Ask your doctor about ways to quit. If you have high blood sugars or diabetes please talk with your doctor about having healthy blood sugar levels to promote healing. Do not shave near where you will have surgery. Shaving can irritate the skin and make it easier to get and infection. After surgery: Be sure that the doctors and nurses clean their hands before and after touching you. Be sure your family and friends clean their hands before and after visiting you. Do not be afraid to remind them. Always wash your hands before touching your incisional area. * Care for your wound at home as told by your doctor or nurse * Call your doctor right away if you have fever, redness, increased pain, or drainage at the surgery site. Can SSIs be treated? Antibiotics are used to treat SSI. Some patients may need another surgery to treat the infection. The doctor will discuss treatment options with you. Further questions? Contact the doctor, nurse or the Infection Prevention and Control department if you have any questions. PATIENT RIGHTS AND RESPONSIBILITIES As a patient at [facility], you have the right to: Receive medical care and be informed of who is taking care of you Be treated with dignity and respect Have a family member/marketing representative of choice and your physician notified of your admission Receive information and actively participate in decisions about your care and treatment Refuse care, treatment and services Decide who may provide your support and speak for you Access uatsdin and spiritual services Participate in ethical issues and questions about your care Receive private and confidential care Have appropriate assessment and management of your pain Know guest visitation restrictions or limitations Have an advance directive Access protective services Consent or refuse to participate in research studies or production or recordings, films or other images Have resolution of your complaints Receive information of hospital charges and payment methods Patient/patient marketing representative responsibilities are to: Provide information about health status to facilitate care, treatment and services Follow the treatment, plan, keep appointments and speak up when you do not understand the plan Respect the rights of other patients and healthcare personnel Follow organizational rules and regulations that support quality care and a safe environment Fulfill financial obligations as promptly as possible Full Body Surgical Prep Instructions Night Before Surgery Cleaning the skin before surgery can lower the risk of infection at the surgical site. This sheet will tell you how to use the clothes that have a rinse-free, 2% Chlorhexidine Gluconate (CHG) soap onthem. Follow the steps below very carefully Important Information: Do not use if allergic to CHG Do not shave your surgical area (or near the area) for 3 days before surgery. Shower (or bathe) and shampoo your hair with regular soap and shampoo at least one hour before you use the CHG cloths to clean your skin. Be sure your skin is completely dry and cool. Clean your skin with the CHG cloths the night before surgery at your home. Do not rinse off the CHG CHG may cause skin to itch or get red for a short time. If you have itching or redness that does not go away, rinse the areas and stop using the CHG clothes. Do not shower the morning of surgery. You may shampoo your hair at a sink. Directions: 1. Remove the plastic wrap. Open the 3 packages with scissors. There are two cloths in each package. 2. Do not let the CHG get in your eyes, ears, mouth. Do not use on open skin wounds (cuts, scrapes,sores). 3. Wipe your body in a back and forth motion using all six (6) cloths. Use each cloth for 30 seconds while using a firm massage . Cloth # 1 - Wipe your neck, shoulders, chest. The area above the jawline can be washed with soap and water. Do not allow soap and water to go below the jawline. Soap can inactivate the CHG. Cloth # 2 - Wipe both arms and hands, starting each with the shoulder and ending at fingertips. Be sure to wipe the arm pit areas. Cloth # 3 - Wipe your abdomen and groin. Be sure to wipe folds in belly and groin areas. Cloth # 4 - Wipe right leg and right foot, starting at the thigh and ending at the toes. Be sure towipe behind your knees. Cloth # 5 - Wipe left leg and left foot, starting at the thigh and ending at the toes. Be sure to wipe behind your knees. Cloth # 6 - Wipe your back starting at the base of your neck and ending at your buttocks. Cover as much area as possible. You may need help from someone. Allow area to air dry for one minute and do not rinse. It is normal for the skin to have a sticky feel for a few minutes after you use the cloths. Do not apply any lotion. Do not shower after you use the cloths. Dress in clean pajamas at night and wear clean clothes the morning of surgery. Place freshly laundered sheets on your bed after using the wipes Do not allow pets in your bed documented [facility] Miscellaneous Notes* Telephone Encounter - Sarah Vasquez CMA - 10/09/2024 8:57 AM EDT Called and spoke with patient and let her know that we did not receive any FMLA paperwork for her. I let her know she can email it, fax it again, or send it through mychart or drop it off and I will take care of it. documented in this encounterMer[facility]05-06-2025 Telephone encounter Note* Telephone Encounter - Sarah Vasquez CMA - 10/09/2024 8:57 AM EDT Called and spoke with patient and let her know that we did not receive any FMLA paperwork for her. I let her know she can email it, fax it again, or send it through mychart or drop it off and I will take care of it. [facility]04-[facility] History of Present illness Narrative* [place] Avila MD - 10/01/2024 3:00 PM EDT [address] [facility] [facility] [id number] Patient: Barbara Garcia Date of : 1965 Encounter Date: 10/01/2024 History of Present Illness: The patient is a 58 y.o. female, an established patient, and is here for Chief Complaint Patient presents with Nasal Congestion Sore Throat . Patient is here for symptoms of postnasal drip, headache, sinus pressure and sore throat. No fever.Patient had runny nose about 4 weeks ago and it got better with symptomatic management after 1 week. But now the symptoms are back. Patient has hip replacement surgery coming up and she is concerned about it. Nasal Congestion Associated symptoms include congestion and a sore throat. Pertinent negatives include no chills, coughing, ear pain or shortness of breath. Sore Throat Associated symptoms include congestion. Pertinent negatives include no abdominal pain, coughing, ear pain, shortness of breath or vomiting. Problem List Items Addressed This Visit Hypothyroidism - Primary Other Visit Diagnoses Acute sinusitis, recurrence not specified, unspecified location Past Medical, Family, and Social History Update: The following portions of the patient's history were reviewed and updated as appropriate: allergies, current medications, past family history, past medical history, past social history, past surgicalhistory and problem list. Past Medical History: Diagnosis Date Basal cell carcinoma 2004 & 2005 Liver disease Past Surgical History: Procedure Laterality Date HYSTERECTOMY 2004 ONE OVARY REMOVED OOPHORECTOMY Right 2005 LEFT IS NON-WORKING Current Outpatient Medications Medication Sig Dispense Refill buPROPion SR (WELLBUTRIN SR) 150 mg 12 hr tablet TAKE 1 TABLET(150 MG) BY MOUTH EVERY MORNING AND EVERY NIGHT AT BEDTIME 180 tablet 2 bmimcqbjfp-mgiryfpnmoltu-xqdm (FIORICET, ESGIC) 50-325-40 mg per tablet Take 1 tablet by mouth every 6 (six) hours as needed for headaches. 30 tablet 5 carisoprodol (SOMA) 350 mg tablet 2 estradioL (VIVELLE-DOT) 0.05 mg/24 hr APPLY 1 PATCH TOPICALLY TO THE SKIN 2 TIMES A WEEK 24 patch 3 gabapentin (NEURONTIN) 100 mg capsule 5 levothyroxine (SYNTHROID, LEVOTHROID) 50 MCG tablet TAKE 1 TABLET(50 MCG) BY MOUTH IN THE MORNING 90 tablet 1 loratadine (CLARITIN) 10 mg tablet TAKE 2 TABLETS(20 MG) BY MOUTH DAILY 180 tablet 1 SUMAtriptan (IMITREX) 100 mg tablet TAKE 1 TABLET BY MOUTH AT ONSET OF SYMPTOMS MAY REPEAT IN 2 HOURS IF UNRESOLVED. DO NOT EXCEED 200 MG IN 24 HOURS 27 tablet 1 traMADol (ULTRAM) 50 mg tablet 2 azithromycin (ZITHROMAX) 250 mg tablet Take 1 tablet (250 mg total) by mouth in the morning for 5 days. Take 2 tablets the first day, then 1 tablet daily for 4 days. 6 tablet 0 No current facility-administered medications for this visit. (All medications reviewed and updated by provider since last office visit or hospitalization) Allergies: Pravastatin, Hismanal, and Zithromax [azithromycin] Tobacco History: Social History Tobacco Use Smoking Status Former Smokeless Tobacco Never (If patient a smoker, smoking cessation counseling offered) Social History: Social History Substance and Sexual Activity Alcohol Use No Review of Systems: Review of Systems Constitutional: Negative for chills and fever. HENT: Positive for congestion and sore throat. Negative for ear pain. Eyes: Negative for pain and visual disturbance. Respiratory: Negative for cough and shortness of breath. Cardiovascular: Negative for chest pain and palpitations. Gastrointestinal: Negative for abdominal pain and vomiting. Genitourinary: Negative for dysuria and hematuria. Musculoskeletal: Negative for arthralgias and back pain. Skin: Negative for color change and rash. Neurological: Negative for seizures and syncope. All other systems reviewed and are negative. Physical Exam: BP 130/82 Pulse 79 Temp 37 C (98.6 F) (Tympanic) Resp 18 Wt 54.9 kg (121 lb) SpO2 98% BMI 22.13 kg/m Physical Exam Constitutional: Appearance: She is well-developed. HENT: Head: Normocephalic and atraumatic. Nose: Nose normal. Mouth/Throat: Mouth: Mucous membranes are moist. Comments: Erythema of oropharynx. Tonsils not enlarged. Eyes: Pupils: Pupils are equal, round, and reactive to light. Cardiovascular: Rate and Rhythm: Normal rate and regular rhythm. Heart sounds: Normal heart sounds. No murmur heard. Pulmonary: Effort: Pulmonary effort is normal. No respiratory distress. Breath sounds: Normal breath sounds. No wheezing. Abdominal: General: Bowel sounds are normal. Palpations: Abdomen is soft. Tenderness: There is no abdominal tenderness. Musculoskeletal: General: Normal range of motion. Cervical back: Neck supple. Lymphadenopathy: Cervical: No cervical adenopathy. Skin: General: Skin is warm and dry. Findings: No rash. Neurological: Mental Status: She is alert and oriented to person, place, and time. Cranial Nerves: No cranial nerve deficit. Lab Results Component Value Date GLU 84 04/13/2023 CALCIUM 9.6 04/13/2023 SODIUM 139 04/13/2023 K 3.7 04/13/2023 CO2 30 04/13/2023 BUN 11 04/13/2023 CREATININE 0.93 04/13/2023 Lab Results Component Value Date WBC 5.3 08/29/2024 HGB 12.1 08/29/2024 HCT 35.4 08/29/2024 MCV 89 08/29/2024 PLT 212 08/29/2024 Lab Results Component Value Date HGBA1C 5.4 08/29/2024 Assessment and Plan: Barbara was seen today for nasal congestion and sore throat. Diagnoses and all orders for this visit: Acquired hypothyroidism Acute sinusitis, recurrence not specified, unspecified location Other orders - azithromycin (ZITHROMAX) 250 mg tablet; Take 1 tablet (250 mg total) by mouth in the morning for 5 days. Take 2 tablets the first day, then 1 tablet daily for 4 days. Claritin 10 mg x daily. PRN. Follow-up: Return for Next scheduled follow up. S[place] AVILA MD documented in this encounterMer[facility]02-26-2025 History of Present illness Narrative* Shilpa Castillo RN - 08/01/2024 1:58 PM EST Patient: Barbara Garcia 1965 Dear Provider: We have attempted to contact the patient on 07/18/2024 and 07/25/2024 to schedule an appointment [facility], but have been unsuccessful in our attempts. If the patient is interested in scheduling an appointment, please have them call [phone] Thank you, Shilpa Castillo RN [facility] documented in this encounterMer[facility]02-11-2025 History of Present illness Narrative* Faustino Amin APRN-ROUGHER OPERATOR - 07/17/2024 8:00 AM EST Images from the original note were not included. [address] [facility] [id number] SUBJECTIVE: Patient ID: Barbara Garcia is a 58 y.o. female. Patient presents to the office for check up. She follows with rheumatology for fibromyalgia. She ishaving a hip replacement in October. She is concerned because after her hysterectomy and carpal tunnel surgery she bled and had to go back into surgery. Was not taking nsaids or steroids then. She did see someone in [place] but nothing came of it and it happened again with carpal tunnel. Will refer her to hematology for second opinion. Annual Exam Associated symptoms include arthralgias. Pertinent negatives include no abdominal pain, chest pain,congestion, coughing, fatigue, fever, joint swelling, nausea, neck pain, numbness, rash, sore throat, vomiting or weakness. The following portions of the patient's history were reviewed and updated as appropriate: allergies, current medications, past family history, past medical history, past social history, past surgicalhistory and problem list. REVIEW OF SYSTEMS: Review of Systems Constitutional: Negative for fatigue, fever and unexpected weight change. HENT: Negative for congestion, ear pain, sinus pressure, sinus pain and sore throat. Eyes: Negative for photophobia, pain, discharge and visual disturbance. Respiratory: Negative for cough and shortness of breath. Cardiovascular: Negative for chest pain, palpitations and leg swelling. Gastrointestinal: Negative for abdominal pain, diarrhea, nausea and vomiting. Endocrine: Negative for polydipsia, polyphagia and polyuria. Genitourinary: Negative for difficulty urinating, frequency, hematuria and urgency. Musculoskeletal: Positive for arthralgias. Negative for gait problem, joint swelling and neck pain. Skin: Negative for pallor and rash. Neurological: Negative for dizziness, weakness, light-headedness and numbness. Psychiatric/Behavioral: Negative for sleep disturbance. The patient is not nervous/anxious. PHYSICAL EXAMINATION: Vitals: 07/17/24 0811 BP: 118/72 Pulse: 86 Resp: 16 SpO2: 97% Weight: 49 kg (108 lb) Physical Exam Constitutional: Appearance: She is well-developed. HENT: Head: Normocephalic and atraumatic. Right Ear: External ear normal. Left Ear: External ear normal. Eyes: Conjunctiva/sclera: Conjunctivae normal. Pupils: Pupils are equal, round, and reactive to light. Cardiovascular: Rate and Rhythm: Normal rate and regular rhythm. Heart sounds: Normal heart sounds. Pulmonary: Effort: Pulmonary effort is normal. Breath sounds: Normal breath sounds. Musculoskeletal: Cervical back: Normal range of motion. Skin: General: Skin is warm and dry. Neurological: Mental Status: She is alert and oriented to person, place, and time. Psychiatric: Mood and Affect: Mood normal. ASSESSMENT/PLAN: Barbara was seen today for annual exam. Diagnoses and all orders for this visit: Fibromyalgia Gastroesophageal reflux disease without esophagitis Hypothyroidism, unspecified type Tension headache H/O blood loss - [facility]; Future Bleeds easily (CMS-HCC) - [facility]; Future Follow-up: Referral hematology Follow up for pre op clearance Keep appointments with specialist MEMO Best 07/17/24 0855 documented in this encounterMercy [facility]01-30-2025 History of Present illness Narrative* Shahram Rivas MD - 07/05/2024 9:00 AM EST Orthopaedic Surgery Outpatient Visit Note Encounter Date: 07/05/2024 Patient: Barbara Garcia 1965 PCP [facility] CC: Chief Complaint Patient presents with Left Hip - Pain Nut Threader left hip pain had an injection and pt would like a second opinion. HPI: Barbara Garcia is a 58 y.o. female. This is a patient who has had worsening left hip pain over a number of years. She is noticing that she is having more trouble just with daily tasks. When she stands up she has some trouble and when she tries to walk any sort of distance she has trouble. She can not walk any long distances anymore. She used to like to walk for exercise but she can not do that anymore. She tried an injection and itdid seem to help for time but now has gotten worse and noted that the pain is actually worse than what it started with. She has also tried Motrin and a leave and they do cause some swelling at night but she is able to take them during the day and they may help temporarily. She likes to stay active.She is otherwise healthy. She would like to pursue some treatment options for her left hip but is unclear what options she has. Past Medical History: Past Medical History: Diagnosis Date Basal cell carcinoma 2004 & 2006 Liver disease Past Surgical History: Procedure Laterality Date HYSTERECTOMY 2005 ONE OVARY REMOVED OOPHORECTOMY Right 2005 LEFT IS NON-WORKING Medications: Current Outpatient Medications: buPROPion SR (WELLBUTRIN SR) 150 mg 12 hr tablet, TAKE 1 TABLET(150 MG) BY MOUTH EVERY MORNING AND EVERY NIGHT AT BEDTIME, Disp: 180 tablet, Rfl: 2 vceernijtt-xrlpowvflbasv-qpkl (FIORICET, ESGIC) 50-325-40 mg per tablet, Take 1 tablet by mouth every 6 (six) hours as needed for headaches., Disp: 30 tablet, Rfl: 5 carisoprodol (SOMA) 350 mg tablet, TK 1 T PO BID PRN, Disp: , Rfl: 2 estradioL (VIVELLE-DOT) 0.05 mg/24 hr, APPLY 1 PATCH TOPICALLY TO THE SKIN 2 TIMES A WEEK, Disp: 24patch, Rfl: 3 gabapentin (NEURONTIN) 100 mg capsule, TK 2 CS PO BID, Disp: , Rfl: 5 levothyroxine (SYNTHROID, LEVOTHROID) 50 MCG tablet, TAKE 1 TABLET(50 MCG) BY MOUTH IN THE MORNING,Disp: 90 tablet, Rfl: 1 loratadine (CLARITIN) 10 mg tablet, TAKE 2 TABLETS(20 MG) BY MOUTH DAILY, Disp: 180 tablet, Rfl: 3 SUMAtriptan (IMITREX) 100 mg tablet, TAKE 1 TABLET BY MOUTH AT ONSET OF SYMPTOMS MAY REPEAT IN 2 HOURS IF UNRESOLVED. DO NOT EXCEED 200 MG IN 24 HOURS, Disp: 27 tablet, Rfl: 1 traMADol (ULTRAM) 50 mg tablet, TK 1 TO 2 TS PO QID PRN, Disp: , Rfl: 2 doxycycline (MONODOX) 100 mg capsule, Take 1 capsule (100 mg total) by mouth daily as needed. (Patient not taking: Reported on 07/05/2024), Disp: , Rfl: LORazepam (ATIVAN) 0.5 mg tablet, Take 1 tablet (0.5 mg total) by mouth every 8 (eight) hours as needed for anxiety. (Patient not taking: Reported on 07/05/2024), Disp: 30 tablet, Rfl: 0 metroNIDAZOLE (METROGEL) 1 % gel, Apply 1 application topically in the morning. (Patient not taking: Reported on 07/05/2024), Disp: 45 g, Rfl: 0 silver sulfADIAZINE (SILVADENE, SSD) 1 % cream, Apply 1 Application topically in the morning. (Patient not taking: Reported on 07/05/2024), Disp: 50 g, Rfl: 1 sulfacetamide sodium-sulfur 9.8-4.8 % lotion, , Disp: , Rfl: zolpidem (AMBIEN) 10 mg tablet, TK ONE T PO HS (Patient not taking: Reported on 07/05/2024), Disp: ,Rfl: 2 Allergies and adverse reactions: Allergies Allergen Reactions Pravastatin Hives Hismanal Zithromax [Azithromycin] Other (See Comments) heartburn Social History: Social History Socioeconomic History Marital status: Spouse name: Not on file Number of children: Not on file Years of education: Not on file Highest education level: Not on file Occupational History Not on file Tobacco Use Smoking status: Former Smokeless tobacco: Never Substance and Sexual Activity Alcohol use: No Drug use: No Sexual activity: Defer Other Topics Concern Not on file Social History Narrative Not on file Social Drivers of Health Financial Resource Strain: Not on file Food Insecurity: No Food Insecurity (01/24/2024) Hunger Screening Food Insecurity - Worry: Never True Food Insecurity - Inability: Never True Transportation Needs: Not on file Physical Activity: Not on file Stress: Not on file Social Connections: Not on file Interpersonal Safety: Not on file Housing Instability: Not on file Family History: Family History Problem Relation Age of Onset Heart failure Mother Heart failure Brother Cardiomyopathy Maternal Grandmother Heart failure Maternal Grandmother Breast cancer Neg Hx ROS: Constitutional No fever No chills Musculoskeletal Joint pain Objective: General Appearance : Well appearing Comfortable Orientation: Oriented to Person Place Time Mood and Affect: Normal Gait: Antalgic Right Left Hip exam Internal rotation: 20 External rotation: 30 No pain with range of motion Internal rotation: 10 External rotation: 20 Pain with range of motion Knee exam Extension: 0 Flexion: 130 Effusion: Extension: 0 Flexion: 130 Effusion: Cardiovascular Posterior tibialis pulse is 2+ to palpation. The foot is warm to touch. Posterior tibialis pulse is 2+ to palpation. The foot is warm to touch. Sensation The superficial peroneal and tibial nerve distributions have normal sensation to light touch. The superficial peroneal and tibial nerve distributions have normal sensation to light touch Strength Hip flexion, knee extension, and ankle dorsiflexion are 5/5. Hip flexion, knee extension, and ankle dorsiflexion are 5/5. Labs: Lab Results Component Value Date HGB 12.7 04/13/2023 HGB 13.1 01/28/2022 HGB 12.7 04/23/2021 Lab Results Component Value Date CREATININE 0.93 04/13/2023 CREATININE 0.96 01/28/2022 CREATININE 1.02 (H) 04/23/2021 No results found for: CRP No results found for: SEDRATE Lab Results Component Value Date CULTURE No growth at 1 day 06/14/2014 Imaging: Radiographs of the left hip were reviewed. Findings: Left hip shows progressive degeneration versus x-rays in 2020. There is [id number] osteoarthritis of the left hip with absence the joint space with osteophyte formation. Assessment: 1. Primary osteoarthritis of left hip Plan: Given the current symptoms of hip pain, the failure of previous non-operative options, the radiographic findings, and correlation of symptoms to objective findings, I do not believe that further non-operative treatment will have any long-term benefit to the patient. I can recommend left total hip arthroplasty for treatment of pain at this point. Risk of infection, dislocation, persistent pain, repeat surgery, leg length inequality, limp, and blood clot. All questions answered and consent was obtained. In measurement of the MDM of this patient's visit, I consider the diagnosis to be a chronic illnesswith exacerbation or progression (4). I have reviewed tests and documents including reviewed the results of each test and ordered a test (4/5), I have independently interpreted the radiological tests(4/5), and I have discussed management and test interpretation with the patient (4/5). I have had adiscussion with the patient about major surgery without significant identified risks (4). [facility] Telephone encounter Note* Telephone Encounter - Sadie Hamlin - 03/26/2024 3:15 PM EDT Patient call requesting a inj in her hip. Last on was 11/02/2023. [facility] [id number] Miscellaneous Notes* Telephone Encounter - Sadie Hamlin - 03/26/2024 3:15 PM EDT Patient call requesting a inj in her hip. Last on was 11/02/2023. documented in this encounterS[facility] [id number] Miscellaneous Notes* Telephone Encounter - Alessandra Mills LPN - 02/10/2024 7:35 AM EDT [facility] requesting [facility]ill of Fioricet documented [facility] Telephone encounter Note* Telephone Encounter - Alessandra Mills LPN - 02/10/2024 7:35 AM EDT [facility] requesting refill of Fioricet [facility] Miscellaneous Notes* Telephone Encounter - Alessandra Mills LPN - 01/29/2024 3:31 AM EDT [facility] of levothyroxine [facility]Mer[facility]08-25-2024 Telephone encounter Note* Telephone Encounter - Alessandra Mills LPN - 01/29/2024 3:31 AM EDT [facility] requesting refill of levothyroxine [facility] History of Present illness Narrative* Carolyn Jackson MD - 01/24/2024 8:00 AM EDT Images from the original note were not included. [address] [facility] [id number] SUBJECTIVE: Patient ID: Barbara Garcia is a 58 y.o. female. 58 yo WF with wellness, nonsmoker, no ethanol, trying exercise, c/o sinus The following portions of the patient's history were reviewed and updated as appropriate: allergies, current medications, past family history, past medical history, past social history, past surgicalhistory and problem list. REVIEW OF SYSTEMS: Review of Systems Constitutional: Negative. HENT: Positive for congestion. Respiratory: Negative. Cardiovascular: Negative. Gastrointestinal: Negative. Genitourinary: Negative. Musculoskeletal: Positive for arthralgias. Neurological: Positive for headaches. PHYSICAL EXAMINATION: Vitals: 01/24/24 0805 BP: 124/86 Pulse: 74 SpO2: 98% Weight: 51.3 kg (113 lb) Height: 160 cm (5' 3 ) Physical Exam Vitals and nursing note reviewed. Constitutional: Appearance: Normal appearance. HENT: Head: Normocephalic and atraumatic. Right Ear: Tympanic membrane normal. Left Ear: Tympanic membrane normal. Nose: Congestion present. Eyes: Extraocular Movements: Extraocular movements intact. Pupils: Pupils are equal, round, and reactive to light. Cardiovascular: Rate and Rhythm: Normal rate and regular rhythm. Pulses: Normal pulses. Heart sounds: Normal heart sounds. Pulmonary: Effort: Pulmonary effort is normal. Breath sounds: Normal breath sounds. Skin: General: Skin is warm and dry. Neurological: General: No focal deficit present. Mental Status: She is alert and oriented to person, place, and time. Psychiatric: Mood and Affect: Mood normal. Behavior: Behavior normal. ASSESSMENT/PLAN: Barbara was seen today for annual exam. Diagnoses and all orders for this visit: Routine general medical examination at a health care facility - CBC auto differential; Future - Vitamin D 25 hydroxy; Future - Thyroid profile includes TSH FT4; Future - Lipid profile; Future - Comprehensive metabolic panel; Future Screen for colon cancer - Cologuard Non-[facility] Encounter for screening mammogram for malignant neoplasm of breast - Mammography screening bilateral with CAD; Future Other orders - amoxicillin (AMOXIL) 500 mg capsule; Take 1 capsule (500 mg total) by mouth 3 (three) times a dayfor 10 days. Follow-up: Amoxil 500mg tid x10d Mammogram utd, cologard due and fasting labs ordered documented in this encounterMer[facility]08-20-2024 Miscellaneous Notes* Addendum Note - Carolyn Jackson MD - 01/24/2024 8:00 AM EDTAddended by: CAROLYN JACKSON on: 01/24/2024 08:35 AM Modules accepted: Orders documented in this [facility]08-20-2024 Note* Addendum Note - Carolyn Jackson MD - 01/24/2024 8:00 AM EDTAddended by: CAROLYN JACKSON on: 01/24/2024 08:35 AM Modules accepted: Orders [facility]08-08-[facility] History of Present illness Narrative* Carolyn Jackson MD - 01/12/2024 4:48 PM EDT Rx sent to [facility] documented in this [facility]07-19-2024 Miscellaneous Notes* Telephone Encounter - Alessandra Mills LPN - 12/23/2023 3:31 AM EDT [facility] refill of Bupropion documented in this [facility]07-19-2024 Telephone encounter Note* Telephone Encounter - Alessandra Mills LPN - 12/23/2023 3:31 AM EDT [facility] of Bupropion [facility] Miscellaneous Notes* Telephone Encounter - Alessandra Mills LPN - 08/16/2023 7:37 AM EDT [facility] requesting refill of Loratadine documented in this [facility]03-12-2024 Telephone encounter Note* Telephone Encounter - Alessandra Mills LPN - 08/16/2023 7:37 AM EDT [facility] of Loratadine [facility] Miscellaneous Notes* Telephone Encounter - Nicolette Young CMA - 07/15/2023 9:56 AM EST [facility]02-[facility]-2024 Telephone encounter Note* Telephone Encounter - Nicolette Young CMA - 07/15/2023 9:56 AM EST [facility] Miscellaneous Notes* Telephone Encounter - Nicolette Young CMA - 07/15/2023 9:55 AM EST Patient with flare up of rosacea, asking for medication [facility] be [facility] to [facility] * Telephone Encounter - Carolyn Jackson MD - 07/15/2023 9:55 AM EST Doxycycline rx sent to * Telephone Encounter - Nicolette Young CMA - 07/15/2023 9:55 AM EST Mailbox full unable to advise pt rx sent documented in this encounterMer[facility]02-09-2024 Telephone encounter Note* Telephone Encounter - Nicolette oYung CMA - 07/15/2023 9:55 AM EST Patient with flare up of rosacea, asking for medication to be sent to [facility] Telephone encounter Note* Telephone Encounter - Carolyn Jackson MD - 07/15/2023 9:55 AM EST Doxycycline [facility] Telephone encounter Note* Telephone Encounter - Nicolette Young CMA - 07/15/2023 9:55 AM EST Mailbox full unable to advise pt rx sent [facility]01-[facility] Miscellaneous Notes* Telephone Encounter - Landy Orosco CMA - 06/26/2023 3:29 AM EST Should patient be seen yearly of every 6 months? documented in this encounterMer[facility]01-21-2024 Telephone encounter Note* Telephone Encounter - Landy Orosco CMA - 06/26/2023 3:29 AM EST Should patient be seen yearly of every 6 months? [facility] Evaluation note* Encounter Date Diagnosis Assessment Notes Treatment Notes Treatment Clinical Notes Nov, Dysuria (ICD-10 - R30.0) Nov, [...] completed to make sure infection has cleared. [employer] Other Evaluation noteNo assessment information available [facility] Work Phone: Evaluation note* Diagnosis Primary osteoarthritis of left hip- Primary intermediate manager use of drug documented in this encounter [facility]* Diagnosis Primary osteoarthritis of left hip- Primary documented in this encounter [facility]Evaluation [facility]* Diagnosis Fibromyalgia- Primary Unspecified myalgia and myositis Gastroesophageal reflux disease without esophagitis Esophageal reflux Hypothyroidism, unspecified type Tension headache H/O blood loss Bleeds easily ([facility]) documented in this encounter [facility] SystemEvaluation note* Diagnosis Routine general medical examination at a health care facility- Primary Screen for colon cancer Special screening for malignant neoplasms, colon Encounter for screening mammogram for malignant neoplasm of breast documented in this encounter [facility] SystemEvaluation note* Diagnosis Primary osteoarthritis of left hip- Primary Acute sinusitis, recurrence not specified, unspecified location- Primary Acquired hypothyroidism Unspecified hypothyroidism Fibromyalgia Unspecified myalgia and myositis Primary osteoarthritis of left hip documented in this encounter [facility] SystemEvaluation note* Diagnosis Primary osteoarthritis of left hip- Primary Preop testing- Primary Unspecified pre-operative examination Primary osteoarthritis of left hip documented in this encounter [facility] SystemEvaluation note* Diagnosis Primary osteoarthritis of left hip- Primary Pre-operative clearance- Primary Unspecified pre-operative examination Acquired hypothyroidism Unspecified hypothyroidism Fibromyalgia Unspecified myalgia and myositis Primary osteoarthritis of left hip Tension headache Gastroesophageal reflux disease without esophagitis Esophageal reflux Hypothyroidism, unspecified type Primary osteoarthritis of left hip documented in this encounter [facility] SystemEvaluation note* Diagnosis Vitamin D deficiency- Primary documented in this encounter [facility] SystemEvaluation note* Diagnosis Aftercare following left hip joint replacement surgery- Primary documented in this encounter [facility] SystemEvaluation note* Diagnosis Aftercare following left hip joint replacement surgery- Primary documented in this encounter [facility] SystemEvaluation note* Diagnosis Aftercare following left hip joint replacement surgery- Primary documented in this encounter [facility] SystemEvaluation note* Diagnosis Aftercare following left hip joint replacement surgery- Primary [facility]* Diagnosis Asymptomatic menopausal state- Primary IUD check up Breast cancer screening by mammogram Unprotected sexual intercourse Problems related to high-risk sexual behavior documented in this encounter [facility] HealthcareEvaluation note* Diagnosis Aftercare following left hip joint replacement surgery- Primary documented in this encounter [facility]* Diagnosis Cystitis- Primary Unspecified cystitis Rosacea documented in this encounter [facility] SystemHistory general Narrative - Reported* Type Description Date Medical History fibromyalgia Medical History thoraxic outlet Surgical History 4 ribs removed Surgical History hysterectomy Surgical History carpal tunnel release left [employer] Other InstructionsNot on filedocumented in this encounter [facility] SystemInstructionsNot on filedocumented in this encounter [facility] SystemInstructions* Attachments The following attachments cannot be sent through Care Everywhere. * Fibromyalgia (Japanese) documented in this encounterProMedica Health SystemInstructionsNot on file documented in this encounterProMedica Health SystemInstructions* Attachments The following attachments cannot be sent through Care Everywhere. * Yearly Physical for Adults (Japanese) documented in this encounterProMedica Health SystemInstructionsNot on file documented in this encounterProMedica Health SystemInstructionsNot on file documented in this encounterProMedica Health SystemInstructionsNot on file documented in this encounterProMedica Health SystemInstructionsNot on file documented in this encounterProMedica Health SystemInstructionsNot on file documented in this encounterProMedica Health SystemInstructionsNot on file documented in this encounterProMedica Health SystemInstructions* Attachments The following attachments cannot be sent through Care Everywhere. * Pre-Surgery Shower (Japanese) documented in this encounterProMedica Health SystemInstructionsNot on file documented in this encounterProMedica Health SystemInstructionsNot on file documented in this encounterProMedica Health SystemInstructionsNot on file documented in this encounterProMedica Health SystemInstructionsNot on file documented in this encounterProMedica Health SystemInstructionsNot on file documented in this encounterProMedica Health SystemReason for referral (narrative)No reason for referral information availableOhiohealth [facility]ville [facility] Work Phone: Summary Purpose Family History Relationship Condition Age at Onset Recorded Date/T brandyn father Unknown family member Unknown mother Unknown Advance Directives Date Activated Date Inactivated Comments 10/31/2024 9:34 AM Date Activated Date Inactivated Comments 10/31/2024 9:34 AM 10/31/2024 7:07 PM Date Activated Date Inactivated Comments 10/31/2024 9:34 AM 10/31/2024 7:07 PM Advance Directive Response Recorded Date/ Time Advance Directives No November 09 7:04am Chief Complaint and Reason for Visit Chief Complaint Admit Date Poss uti December 22, 2024 2:15 pm Reason for Visit Admit Date UTI (urinary tract infection) December 22, 2024 2:15pm Additional Source Comments INFORMATION SOURCE (unrecogn ized section and content) DATE CREATED AUTHOR 03/15/2021 [facility] DATE CREATED AUTHOR AUTHOR'S ORGANIZ ATION 10/20/2024 [facility] DATE CREATED AUTHOR AUTHOR'S ORGANIZ ATION 12/25/2024 [facility] DATE CREATED AUTHOR AUTHOR'S ORGANIZ ATION 01/01/2025 [facility] DATE CREATED AUTHOR AUTHOR'S ORGANIZ ATION 01/14/2025 [facility] DATE CREATED AUTHOR AUTHOR'S ORGANIZ ATION 01/21/2025 [facility] Care Teams (unrecognized sec tion and content) Team Status: Inactive Member Role Status Dates CLARISA Beltran Attending Provider Active Pit Slagman Relationship Specialty Start Date End Date Carolyn Jackson MD [address] [place] [address] PCP - General Family Medicine 09/15/23 Pit Slagman Relationship Specialty Start Date End Date Faustino Amin APRN-CNP [address] [place] [address] PCP - General Family Medicine 06/06/24 Pit Slagman Relationship Specialty Start Date End Date Faustino Amin APRN-CNP [address] [place] [address] PCP - General Family Medicine 06/06/24 Pit Slagman Relationship Specialty Start Date End Date Faustino Amin APRN-ROUGHER OPERATOR [address] [place] [address] PCP - General Family Medicine 06/06/24 Pit Slagman Relationship Specialty Start Date End Date Carolyn Jackson MD [address] [place] [address] PCP - General Family Medicine 01/28/22 Pit Slagman Relationship Specialty Start Date End Date Carolyn Jackson MD [address] [place] [address] PCP - General Family Medicine 01/28/22 Pit Slagman Relationship Specialty Start Date End Date Carolyn Jackson MD [address] [place] [address] PCP - General Family Medicine 01/28/22 06/05/24 Pit Slagman Relationship Specialty Start Date End Date Carolyn Jackson MD [address] [place] [address] PCP - General Family Medicine 01/28/22 06/05/24 Pit Slagman Relationship Specialty Start Date End Date Carolyn Jackson MD [address] [place] [address] PCP - General Family Medicine 01/28/22 06/05/24 Pit Slagman Relationship Specialty Start Date End Date Faustino Amin APRN-ROUGHER OPERATOR [address] [place] [address] PCP - General Family Medicine 06/06/24 Pit Slagman Relationship Specialty Start Date End Date Faustino Amin APRN-ROUGHER OPERATOR [address] [place] [address] PCP - General Family Medicine 06/06/24 Pit Slagman Relationship Specialty Start Date End Date Faustino Amin APRN-ROUGHER OPERATOR [address] [place] [address] PCP - General Family Medicine 06/06/24 Pit Slagman Relationship Specialty Start Date End Date Faustino Amin APRN-ROUGHER OPERATOR [address] [place] [address] PCP - General Family Medicine 06/06/24 Pit Slagman Relationship Specialty Start Date End Date Faustino Amin APRN-ROUGHER OPERATOR [address] [place] [address] PCP - General Family Medicine 06/06/24 Pit Slagman Relationship Specialty Start Date End Date Faustino Amin APRN-ROUGHER OPERATOR [address] [place] [address] PCP - General Family Medicine 06/06/24 Pit Slagman Relationship Specialty Start Date End Date Faustino Amin APRN-ROUGHER OPERATOR [address] [place] [address] PCP - General Family Medicine 06/06/24 Pit Slagman Relationship Specialty Start Date End Date Faustino Amin APRN-ROUGHER OPERATOR [address] [place] [address] PCP - General Family Medicine 06/06/24 Pit Slagman Relationship Specialty Start Date End Date Faustino Amin APRN-ROUGHER OPERATOR [address] [place] [address] PCP - General Family Medicine 06/06/24 Pit Slagman Relationship Specialty Start Date End Date Faustino Amin APRN-ROUGHER OPERATOR [address] [place] [address] PCP - General Family Medicine 06/06/24 Pit Slagman Relationship Specialty Start Date End Date Faustino Amin COMBUSTION ANALYST-ROUGHER OPERATOR [address] [place] [address] PCP - General Family Medicine 06/06/24 Team Status: Active Member Role Status Dates NON STAFF Primary Care Provider Active Team Status: Inactive Member Role Status Dates NON STAFF Primary Care Provider Active Start: December 22, 2024 End: December 22, 2024 Nika Jennings APRN Attending Provider Active Start: December 22, 2024 End: December 22, 2024 Team Status: Inactive Member Role Status Dates Nika Jennings APRN Attending Provider Active Start: December 22, 2024 End: December 22, 2024 Pit Slagman Relationship Specialty Start Date End Date Faustino Amin APRN-ROUGHER OPERATOR [address] [place] [address] PCP - General Family Medicine 06/06/24 Pit Slagman Relationship Specialty Start Date End Date Carolyn Jackson MD PCP - General Family Medicine 09/15/23 Pit Slagman Relationship Specialty Start Date End Date Carolyn Jackson MD PCP - General Family Medicine 09/15/23 Pit Slagman Relationship Specialty Start Date End Date Faustino Amin COMBUSTION ANALYST-ROUGHER OPERATOR [address] [place] [address] PCP - General Family Medicine 06/06/24 Goals (unrecognized section and content) Goals may [...] this encounterNot on filedocumented as of this encounterGoals may be documented in an alternate sectionGoals may be documented in an alternate section REASON FOR VISIT (unrecogniz ed section and content) Reason Comments Pain Nut Threader left hip pain had an injection and pt would like a second opinion. Reason Comments Annual Exam Reason Comments Med Refill Reason Onset Date Comments Med Refill 07/15/2023 Reason Comments Annual Exam Reason Comments Nasal Congestion Sore Throat Reason Comments Pre-op Exam Reason Comments Post-op 1wk LT THR 10/31/24, pain/bruising/swelling in the LT knee, no xray per [facility] Pain pain Reason Comments Post-op 2wk post op LT THR 0 10/31/24 (1 week f/u pain and bruising in knee) imaging completed at last weeks visit, states her knee is bothering her more, using a walker today Reason Comments Post-op 4 wk post op LT THR (10/31/24)- Progress check, states doing well, using a cane, pain at bursa Reason Comments Post-op 8 wk post op LT THR (10/31/24)- 1 month Progress check Reason Comments Gynecologic Exam Reason Comments Post-op 12 wk post op LT THR (10/31/24)- 1 month Progress check, discuss return to work Reason Comments Flank Pain Abdominal Pain urine urgency FOR RECORDS PERTAINING TO PATIENTS WHO ARE [...] BE BASED ON THE PRIMARY CLINICAL RECORDS. [facility]. provides no warranty or guarantee of the accuracy or completeness of information in this document.
[2025-01-24 23:20] VITALS: BP 166/95; PULSE 82; TEMP 36.6; O2SAT 97; BMI 20.7
--- NOTE | 2025-01-24 23:35 | ED.ALLEREA1 ---
HPI - Allergic Reaction General Chief complaint: Allergic Reaction Stated complaint: Allergic Reaction Time Seen by Provider: 01/24/25 23:28 Source: patient Mode of arrival: walk-in Limitations: no limitations History of Present Illness HPI narrative: This 59-year-old female presents for evaluation of an allergic reaction to doxycycline that she took several hours ago for a UTI. The patient states that she feels like her throat is swelling and itching. She also feels that her face is swelling and she has burning in the skin in her anterior chest. She has no nausea or vomiting. She denies any shortness of breath. She is tolerating secretions without difficulty. She states her throat feels dry at this time. She took an iacb-gnc-haxjjag allergy medicine prior to coming to the emergency department. Related Data Home Medications ?Medication ?Instructions ?Recorded ?Confirmed Calcium + Vitamin D 1 tab PO BID 09/28/23 04/06/24 Vitamin D3 1 tab PO DAILY 09/28/23 04/06/24 bupropion HCl 150 mg tablet,12 hr 150 mg PO BID 09/28/23 01/24/25 sustained-release estradiol 0.05 mg/24 hr weekly 1 patch transdermal .2 times a week 09/28/23 04/06/24 transdermal patch (Climara) gabapentin 100 mg capsule 200 mg PO BID 09/28/23 01/24/25 levothyroxine 50 mcg capsule 50 mcg PO DAILY 09/28/23 04/06/24 loratadine 10 mg capsule 20 mg PO DAILY 09/28/23 04/06/24 multivitamin 1 tab PO DAILY 09/28/23 04/06/24 tramadol 100 mg tablet 100 mg PO Q6H PRN pain 09/28/23 04/06/24 biotin 1 tab PO DAILY 04/06/24 04/06/24 aspirin 325 mg tablet,delayed mg PO 01/24/25 release aspirin 81 mg chewable tablet 01/24/25 oxwdttslmm-efzywebvzvobv-bihpylki tab 01/24/25 50 mg-325 mg-40 mg tablet carisoprodol 350 mg tablet mg 01/24/25 colchicine (bulk) ea miscellaneous 01/24/25 doxycycline hyclate 100 mg capsule mg 01/24/25 ergocalciferol (vitamin D2) 1,250 01/24/25 mcg (50,000 unit) capsule estradiol 0.05 mg/24 hr semiweekly 01/24/25 transdermal patch levothyroxine 50 mcg tablet mcg 01/24/25 loratadine 10 mg tablet mg 01/24/25 nitrofurantoin 01/24/25 monohydrate/macrocrystals 100 mg capsule phenazopyridine 200 mg tablet mg 01/24/25 tramadol 50 mg tablet mg 01/24/25 Allergies Allergy/AdvReac Type Severity Reaction Status Date / Time astemizole Allergy Unknown Verified 01/24/25 23:24 doxycycline Allergy Swelling Verified 01/24/25 23:24 of Lip/Tongue/Throat pravastatin Allergy Hives Verified 01/24/25 23:24 azithromycin AdvReac heartburn Verified 01/24/25 23:24 Review of Systems ROS Status of ROS 10 or more systems reviewed and unremarkable except as noted in history and below [facility] Medical History (Updated 01/25/25 @ 01:09 by Jennifer Coffey MD) Bursitis ?M71.9 - Bursopathy, unspecified (ICD-10) Migraines ?G43.909 - Migraine, unspecified, not intractable, without status migrainosus (ICD-10) Fibromyalgia ?M79.7 - Fibromyalgia (ICD-10) Arthritis ?M19.90 - Unspecified osteoarthritis, unspecified site (ICD-10) Surgical History (Updated 09/28/23 @ 11:10 by Domi Malin) Thoracic outlet syndrome associated with cervical rib ?G54.0 - Brachial plexus disorders (ICD-10) ?Q76.0 - Spina bifida occulta (ICD-10) History of hysterectomy ?Z90.710 - Acquired absence of both cervix and uterus (ICD-10) History of carpal tunnel release ?Z98.890 - Other specified postprocedural states (ICD-10) Social History Little interest or pleasure in doing things: not at all Feeling down, depressed, or hopeless: not at all Exam Narrative Exam Narrative: Vital signs and Nursing Notes reviewed: Patient is afebrile with a normal pulse, blood pressure is elevated at 166/95, she is not hypoxic with pulse ox of 97% on room air General: Awake, alert, oriented, anxious but otherwise well-appearing thin adult female, no respiratory distress, she is speaking in complete sentences HEENT: Normocephalic atraumatic, mucous membranes are moist and pink, eyes are clear, normal conjunctiva, vision is grossly intact, posterior pharynx is normal in appearance. Speech is clear, there is no muffled voice, there is no swelling of the tongue, uvula or pharyngeal soft tissues Neck: Supple, no stridor noted Chest: Lungs are clear to auscultation with good air entry, there is no wheezing rhonchi or rales appreciated no accessory muscle use, patient is speaking in complete sentences CVS: Regular rate and rhythm S1-S2, no murmurs rubs or gallops, pulses are brisk and equal bilaterally ABD: Soft, nondistended, nontender, no rebound guarding or rigidity, bowel sounds are normal, no pulsatile masses appreciated Extremities: Moving all extremities, no lower extremity tenderness or swelling noted, negative Homans' sign, pulses are brisk and equal bilaterally Skin: No urticarial rash noted, mild erythema of the skin on the anterior chest wall Neuro: No focal deficits Constitutional Vital Signs, click to edit/add: Last Vital Signs Temp 97.9 F 01/24/25 23:20 Pulse 82 01/24/25 23:20 Resp 18 01/24/25 23:20 BP 166/95 H 01/24/25 23:20 Pulse Ox 97 01/24/25 23:20 O2 Del Method Room Air 01/24/25 23:20 Course Vital Signs Vital signs: Vital Signs Temperature 97.9 F 01/24/25 23:20 Pulse Rate 82 01/24/25 23:20 Respiratory Rate 18 01/24/25 23:20 Blood Pressure 166/95 H 01/24/25 23:20 Pulse Oximetry 97 01/24/25 23:20 Oxygen Delivery Method Room Air 01/24/25 23:20 Temperature 97.9 F 01/24/25 23:20 Pulse Rate 82 01/24/25 23:20 Respiratory Rate 18 01/24/25 23:20 Blood Pressure 166/95 H 01/24/25 23:20 Pulse Oximetry 97 01/24/25 23:20 Oxygen Delivery Method Room Air 01/24/25 23:20 MDM - Allergic Reaction MDM Narrative Medical decision making narrative: This 59-year-old female presents for evaluation of an allergic reaction after taking doxycycline which she is apparently allergic to. She was taking it for urinary tract infection. She states that approximately 2 hours after taking it she started having some itching and burning in her throat and the sensation that her throat was closing as well as sensation that her lips were swollen and face was swollen and redness across her anterior chest. She is not having any difficulty breathing. I do not appreciate any of the symptoms she is experiencing clinically. Her lips do not appear to be swollen to me, her face does not appear to be swollen, there is no swelling of the tongue, uvula or pharyngeal soft tissues. There is no stridor. She does not have any skin rash besides some mild erythema on her anterior chest wall. Due to her symptoms concerning for acute allergic reaction/angioedema she was medicated with subcutaneous epinephrine, IV fluids, Pepcid, Benadryl and Solu-Medrol. On reevaluation she states her symptoms have improved and she is feeling better. She will be monitored in the emergency department for a period of time after these medications to ensure that she does not have rebound. She will then be discharged home with a prescription for Medrol Dosepak to take for the next several days until the doxycycline has had a chance to leave her system. She will also be discharged home with a prescription for an EpiPen to use as needed for recurrent allergic reaction/angioedema and Keflex for the urinary tract infection that she was taking the doxycycline for. She will be discharged home with her who she lives with who can keep an eye on her overnight and return her to the emergency department or call EMS for any recurrent symptoms. Differential Diagnosis Differential diagnosis: Likely anaphylaxis, allergic reaction, angioedema and adverse reaction to drug Critical Care Time Critical Care Time Critical Care Time: Yes Total Critical Care Time: 35 Attestation: Due to this patient's presentation with acute reaction to medication including potential for airway compromise and the high probability of sudden and clinically significant deterioration in her condition she required the highest level of my preparedness to intervene urgently. I provided critical care time including documentation time medication orders and management reevaluation vital sign assessment and continual monitoring. Aggregate critical care time is 35 minutes including only time during which I was engaged in work directly to her care and did not include time treating other patients simultaneously. Discharge Plan Discharge Chief Complaint: Allergic Reaction Clinical Impression: Allergic reaction, Angioedema, Adverse reaction to drug Patient Disposition: Home, Self-Care Time of Disposition Decision: 01:25 Condition: Good Prescriptions / Home Meds: No Action bupropion HCl 150 mg tablet sustained-release 12 hr 150 mg PO BID estradiol [Climara] 0.05 mg/24 hr patch weekly 1 patch transdermal .2 times a week gabapentin 100 mg capsule 200 mg PO BID levothyroxine 50 mcg capsule 50 mcg PO DAILY loratadine 10 mg capsule 20 mg PO DAILY tramadol 100 mg tablet 100 mg PO Q6H PRN (Reason: pain) multivitamin Tablet 1 tab PO DAILY Calcium + Vitamin D 1 tab PO BID Vitamin D3 1 tab PO DAILY biotin 1 tab PO DAILY carisoprodol 350 mg tablet doxycycline hyclate 100 mg capsule phenazopyridine 200 mg tablet estradiol 0.05 mg/24 hr patch semiweekly tramadol 50 mg tablet njptsqqomg-hwfhjrdcowwij-mdua 50-325-40 mg tablet aspirin 325 mg tablet,delayed release (DR/EC) PO levothyroxine 50 mcg tablet aspirin 81 mg tablet,chewable colchicine (bulk) Powder MISCELLANEOUS ergocalciferol (vitamin D2) 1,250 mcg (50,000 unit) capsule loratadine 10 mg tablet nitrofurantoin monohyd/m-cryst 100 mg capsule Print Language: Belarusian Instructions: Antibiotic Medication Allergy (ED), Angioedema (ED), General Allergic Reaction (ED) Referrals: CAROLYN WATKINS [Primary Care Provider, Family Practice] - 1 week
[2025-01-24 23:49] VITALS: PULSE 89
[2025-01-24 23:50] VITALS: PULSE 87
[2025-01-24 23:53] VITALS: BP 149/80; PULSE 82; O2SAT 98
[2025-01-25] VITALS (8 sets, daily range): PULSE 80–88; O2SAT 97–99
[2025-01-25] MEDS: 0.9 % SODIUM CHLORIDE 1,000 ML 1000 ML IV (00:02)
[2025-01-25] MEDS: FAMOTIDINE/PF 20 MG/2 ML VIAL 40 MG IV (00:02)
[2025-01-25] MEDS: METHYLPREDNISOLONE SOD SUCC PF 125 MG/2 ML VIAL IVP (00:03)
[2025-01-25] MEDS: EPINEPHRINE HCL PF 1 MG/ML AMPULE 0.3 MG SUBQ (00:03)
[2025-01-25] MEDS: DIPHENHYDRAMINE HCL 50 MG/ML VIAL 25 MG IVP (00:04)
--- NOTE | 2025-01-25 00:23 | PC.NURSE ---
Pt presents to ER after taking doxycylcine for a UTI Pt states her face is swollen and she feels like her throat is swelling Pt does not have any hives, no major edema noted by this nurse to any areas of patients face or oral cavity pt states she had a small reaction to doxy years ago Pt immediately brought back to room to be evaluated by physician due to concern for airway
== END 2025-01-25 01:40 | disposition home or self-care (01) ==
PROVIDERS: Emergency Provider Emergency Medicine; PCP Family Medicine
DX: T50.905A Adverse effect of unspecified drugs, medicaments and biological substances, initial encounter (principal); T78.3XXA Angioneurotic edema, initial encounter
CPT/HCPCS: 96372; 96374; 96375; 99284; J1200; J2919; J3490